=== PATIENT | female | born 1935 | race Caucasian/White ===

== ENCOUNTER 2019-10-16 13:46 | Observation (INO) ==
[2019-10-16] MEDS ORDERED: SODIUM CHLORIDE 0.9% 500 ML IV SCH (14:30)
[2019-10-16 14:49] LABS: Basophils # (auto) 0.03 K/uL (0-0.2); Basophils % (auto) 0.3 %; Eosinophils # (auto) 0.31 K/uL (0-0.5); Eosinophils % (auto) 3.5 %; Hematocrit (blood only) 38.1 % (37-47); Hemoglobin 12.7 g/dL (12.0-16.0); Immature Granulocytes # (auto) 0.02 K/uL (0.00-0.02); Immature Granulocytes % (auto) 0.2 %; Lymphocytes # (auto) 2.05 K/uL (1.2-3.4); Lymphocytes % (auto) 23.4 %; Mean Corpuscular Hemoglobin 29.3 pg (25-34); Mean Corpuscular Hgb Conc 33.3 g/dL (32-36); Mean Corpuscular Volume 87.8 fL (80-100); Mean Platelet Volume 10.4 fL (7.4-10.4); Monocytes # (auto) 0.77 K/uL (0.11-0.59); Monocytes % (auto) 8.8 %; Neutrophils # (auto) 5.57 K/uL (1.4-6.5); Neutrophils % (auto) 63.8 %; Platelet Count 246 K/uL (130-400); RDW Coefficient of Variation 13.9 % (11.5-14.5); RDW Standard Deviation 45.1 fL (36.4-46.3); Red Blood Count 4.34 M/uL (4.2-5.4); White Blood Count 8.75 K/uL (4.8-10.8)
--- NOTE | 2019-10-16 14:57 | Emergency Department Note ---
History of Present Illness General Chief complaint: Vaginal Bleeding Stated complaint: vaginal bleeding Time Seen by Provider: 10/16/19 13:56 Source: patient and EMS Mode of arrival: EMS Limitations: other (Dementia) History of Present Illness Provider Complaint: + vaginal bleeding Onset (ago): day(s) 1 Female Urogenital Radiation: + None Maximum Pain Intensity: 0 Current Pain Intensity: 0 Duration: constant Relieved By: + none Exacerbated By: + none Urinary symptoms: + None Vaginal discharge: + blood Sexual activity: + No Associated symptoms: + denies other symptoms The patient is an 84-year-old female who presents from the senior care. The patient has a history of dementia. The history is that the patient has had some vaginal bleeding that started yesterday at some time. She was sent to the hospital for additional vaginal bleeding today. The patient denies any other complaints. She denies any lightheadedness, dizziness, shortness of breath. No recent fevers or illness. She denies injury or placing any substances in the vaginal area. She denies any history of hysterectomy or other gynecologic surgeries. Home Medications Home Medications Medication Instructions Recorded Confirmed Type D-Mannose Cap 1,000 mg PO DAILY 09/30/19 10/16/19 History acetaminophen 500 mg PO TID PRN MDD 3 GMS 09/30/19 10/16/19 History APAP/24 HOURS acetaminophen 650 mg PO Q4H PRN MDD 3 GMS 09/30/19 10/16/19 History APAP/24 HOURS aspirin 325 mg PO DAILY 09/30/19 10/16/19 History atorvastatin 40 mg PO HS 09/30/19 10/16/19 History donepezil 10 mg PO HS 09/30/19 10/16/19 History famotidine 20 mg PO BID 09/30/19 10/16/19 History melatonin 6 mg PO HS 09/30/19 10/16/19 History potassium chloride 10 meq PO DAILY 09/30/19 10/16/19 History escitalopram oxalate 20 mg PO DAILY 10/16/19 10/16/19 History Allergies Allergy/AdvReac Type Severity Reaction Status Date / Time No Known Allergies Allergy Verified 10/16/19 14:14 Past Med/Surg History Social History Preferred Language: Indian Feels Safe at Home: Yes Smoking Status: Never smoker Review of Systems A total of 10 systems reviewed and were otherwise negative Physical Exam Vital Signs: Vital Signs - 24 hr 10/16/19 13:52 10/16/19 16:01 10/16/19 16:04 Temperature 36.7 C Temperature Source Oral Pulse Rate 62 60 64 Pulse Rate [Left F lonnie] Pulse Rate from Sp O2 Sensor 60 64 Pulse Rhythm Regular Pulse Rhythm [Left Finger] Pulse Strength Normal Pulse Strength [Le ft Finger] Respiratory Rate 17 15 17 Respiratory Effort / Characteristics Non-Labored Sponta neous Respiratory Depth Normal Respiratory Patter n Regular Blood Pressure 160/62 H 182/73 H Blood Pressure [Le ft Arm] Blood Pressure Polly n 94 139 Blood Pressure Polly n [Left Arm] Blood Pressure Pos ition [Left Arm] Pulse Oximetry 99 98 99 Oxygen Delivery Me thod Room Air Sepsis Recent Feve r Within 48 Hours No Sepsis New/Unexpla ined Change in Men dewayne Status No Sepsis Action Take n by Nursing No Action Required 10/16/19 16:10 10/16/19 16:11 10/16/19 16:12 Temperature Temperature Source Pulse Rate 62 70 70 Pulse Rate [Left F lonnie] Pulse Rate from Sp O2 Sensor 62 70 70 Pulse Rhythm Pulse Rhythm [Left Finger] Pulse Strength Pulse Strength [Le ft Finger] Respiratory Rate 21 16 18 Respiratory Effort / Characteristics Respiratory Depth Respiratory Patter n Blood Pressure 149/60 H Blood Pressure [Le ft Arm] Blood Pressure Polly n 100 Blood Pressure Polly n [Left Arm] Blood Pressure Pos ition [Left Arm] Pulse Oximetry 100 99 97 Oxygen Delivery Me thod Sepsis Recent Feve r Within 48 Hours Sepsis New/Unexpla ined Change in Men dewayne Status Sepsis Action Take n by Nursing 10/16/19 16:15 10/16/19 16:20 10/16/19 16:30 Temperature Temperature Source Pulse Rate 74 74 70 Pulse Rate [Left F lonnie] Pulse Rate from Sp O2 Sensor 74 74 72 Pulse Rhythm Pulse Rhythm [Left Finger] Pulse Strength Pulse Strength [Le ft Finger] Respiratory Rate 17 17 16 Respiratory Effort / Characteristics Respiratory Depth Respiratory Patter n Blood Pressure 145/81 H Blood Pressure [Le ft Arm] Blood Pressure Polly n 121 Blood Pressure Polly n [Left Arm] Blood Pressure Pos ition [Left Arm] Pulse Oximetry 97 97 97 Oxygen Delivery Me thod Sepsis Recent Feve r Within 48 Hours Sepsis New/Unexpla ined Change in Men dewayne Status Sepsis Action Take n by Nursing 10/16/19 16:31 10/16/19 16:48 10/16/19 16:50 Temperature Temperature Source Pulse Rate 78 69 69 Pulse Rate [Left F lonnie] Pulse Rate from Sp O2 Sensor 78 69 69 Pulse Rhythm Pulse Rhythm [Left Finger] Pulse Strength Pulse Strength [Le ft Finger] Respiratory Rate 20 14 19 Respiratory Effort / Characteristics Respiratory Depth Respiratory Patter n Blood Pressure 139/114 H 161/85 H Blood Pressure [Le ft Arm] Blood Pressure Polly n 126 137 Blood Pressure Polly n [Left Arm] Blood Pressure Pos ition [Left Arm] Pulse Oximetry 98 96 96 Oxygen Delivery Me thod Sepsis Recent Feve r Within 48 Hours Sepsis New/Unexpla ined Change in Men dewayne Status Sepsis Action Take n by Nursing 10/16/19 17:00 10/16/19 17:10 10/16/19 17:16 Temperature Temperature Source Pulse Rate 72 77 73 Pulse Rate [Left F lonnie] Pulse Rate from Sp O2 Sensor 73 79 74 Pulse Rhythm Pulse Rhythm [Left Finger] Pulse Strength Pulse Strength [Le ft Finger] Respiratory Rate 16 19 18 Respiratory Effort / Characteristics Respiratory Depth Respiratory Patter n Blood Pressure 172/71 H 180/65 H Blood Pressure [Le ft Arm] Blood Pressure Polly n 127 67 Blood Pressure Polly n [Left Arm] Blood Pressure Pos ition [Left Arm] Pulse Oximetry 98 99 99 Oxygen Delivery Me thod Sepsis Recent Feve r Within 48 Hours Sepsis New/Unexpla ined Change in Men dewayne Status Sepsis Action Take n by Nursing 10/16/19 17:20 10/16/19 17:30 10/16/19 17:52 Temperature 37 C Temperature Source Oral Pulse Rate 71 73 Pulse Rate [Left F lonnie] 76 Pulse Rate from Sp O2 Sensor 71 73 Pulse Rhythm Pulse Rhythm [Left Finger] Regular Pulse Strength Pulse Strength [Le ft Finger] Normal Respiratory Rate 15 18 18 Respiratory Effort / Characteristics Non-Labored Sponta neous Respiratory Depth Normal Respiratory Patter n Regular Blood Pressure 140/61 Blood Pressure [Le ft Arm] 133/85 Blood Pressure Polly n 67 Blood Pressure Polly n [Left Arm] 101 Blood Pressure Pos ition [Left Arm] Lying Pulse Oximetry 98 97 96 Oxygen Delivery Me thod Room Air Sepsis Recent Feve r Within 48 Hours Sepsis New/Unexpla ined Change in Men dewayne Status Sepsis Action Take n by Nursing Physical Exam: CONSTITUTIONAL/VITAL SIGNS: Reviewed / noted above. GENERAL: Non-toxic in appearance. INTEGUMENTARY: Warm, dry, and [place]. HEAD: Normocephalic. EYES: without scleral icterus or trauma. ENT/OROPHARYNX: clear and moist. LYMPHADENOPATHY/NECK: Is supple without lymphadenopathy or meningismus. RESPIRATORY: Lungs clear and equal. CARDIOVASCULAR: Regular rate and rhythm. GI/ABDOMEN: Soft and nontender. No organomegaly or pulsatile mass. No rebound or guarding. Normal bowel sounds. EXTREMITIES: Warm and well perfused. BACK: No CVA tenderness. NEUROLOGICAL: Intact without focal deficits. PSYCHIATRIC: normal affect. MUSCULOSKELETAL: Normally developed with good muscle tone. VAGINAL/pelvic: Externally there was noted to be some blood and clots. There is no obvious external trauma. Internal exam with speculum reveals vaginal bleeding. I could not find a anatomically normal cervix. Distal to the speculum there was a non-anatomical part/foreign body that has a plastic reflective type nature. The patient denies pessary or other vaginal intervent ions. TRIAGE NURSING DOCUMENTATION REVIEWED. Course Administered Medications Discontinued Medications Sodium Chloride (Nss) 500 mls @ 999 mls/hr IV .Q31M [facility], 1928–1983 Stop: 10/16/19 15:00 Last Infusion: 10/16/19 16:13 Dose: 0 mls/hr Documented by: [id number] Admin: 10/16/19 14:38 Dose: 999 mls/hr Documented by: [id number] Morphine Sulfate (Morphine Sulfate) Confirm Administered Dose 4 mg .ROUTE .STK- MED ONE Stop: 10/16/19 17:08 Last Admin: 10/16/19 17:18 Dose: Not Given Documented by: [id number] Morphine Sulfate (Morphine Sulfate) 4 mg IV NOW STA Stop: 10/16/19 17:09 Last Admin: 10/16/19 17:18 Dose: 4 mg Documented by: [id number] Medical Decision Making Differential Diagnosis + bacterial vaginosis, + vaginitis, + cystitis, + dysmenorrhea, + endometriosis, + mesenteric ischemia and + inflammatory bowel disease Infection/foreign body/trauma. Medical Records Attestation: I reviewed the patient's medical records. Home Medications Current Medication List: was personally reviewed by me Laboratory Data Attestation: I reviewed the patient's lab results. Result diagrams: 10/16/19 14:32 10/16/19 14:32 Lab Results 10/16/19 10/16/19 10/16/19 Range/Units 14:32 14:32 14:32 WBC 8.75 (4.8-10.8) K/uL RBC 4.34 (4.2-5.4) M/uL Hgb 12.7 (12.0-16.0) g/dL Hct 38.1 (37-47) % MCV 87.8 (80-100) fL MCH 29.3 (25-34) pg MCHC 33.3 (32-36) g/dL RDW Std Deviation 45.1 (36.4-46.3) fL RDW Coeff of Anyi 13.9 (11.5-14.5) % Plt Count 246 (130-400) K/uL MPV 10.4 (7.4-10.4) fL Immature Gran % (Auto) 0.2 % Neut % (Auto) 63.8 % Lymph % (Auto) 23.4 % Christian % (Auto) 8.8 % Eos % (Auto) 3.5 % Baso % (Auto) 0.3 % Immature Gran # (Auto) 0.02 (0.00-0.02) K/uL Neut # (Auto) 5.57 (1.4-6.5) K/uL Lymph # (Auto) 2.05 (1.2-3.4) K/uL Christian # (Auto) 0.77 H (0.11-0.59) K/uL Eos # (Auto) 0.31 (0-0.5) K/uL Baso # (Auto) 0.03 (0-0.2) K/uL PT 10.5 (9.0-12.0) Seconds INR 1.0 (0.9-1.1) APTT 23.1 (21.0-31.0) Seconds PTT Ratio 0.8 Sodium 138 (136-145) mmol/L Potassium 3.7 (3.5-5.1) mmol/L Chloride 106 (98-107) mmol/L Carbon Dioxide 29 (21-32) mmol/L Anion Gap 3.0 (3-11) BUN 22 H (7-18) mg/dl Creatinine 0.81 (0.6-1.2) mg/dl Est Cr Clr Drug Dosing 44.7 ml/min Est GFR ( Amer) 76.2 Est GFR (Non-Af Amer) 65.8 BUN/Creatinine Ratio 26.6 H (10-20) Glucose 126 H (70-99) mg/dl Calcium 8.6 (8.5-10.1) mg/dl Total Bilirubin 0.7 (0.2-1) mg/dl AST 17 (15-37) U/L ALT 26 (12-78) U/L Alkaline Phosphatase 73 (45-117) U/L Total Protein 6.9 (6.4-8.2) gm/dl Albumin 3.3 L (3.4-5.0) gm/dl Globulin 3.6 (2.5-4.0) gm/dl Albumin/Globulin Ratio 0.9 (0.9-2) Crossmatch 10/16/19 Range/Units 18:07 WBC (4.8-10.8) K/uL RBC (4.2-5.4) M/uL Hgb (12.0-16.0) g/dL Hct (37-47) % MCV (80-100) fL MCH (25-34) pg MCHC (32-36) g/dL RDW Std Deviation (36.4-46.3) fL RDW Coeff of Anyi (11.5-14.5) % Plt Count (130-400) K/uL MPV (7.4-10.4) fL Immature Gran % (Auto) % Neut % (Auto) % Lymph % (Auto) % Christian % (Auto) % Eos % (Auto) % Baso % (Auto) % Immature Gran # (Auto) (0.00-0.02) K/uL Neut # (Auto) (1.4-6.5) K/uL Lymph # (Auto) (1.2-3.4) K/uL Christian # (Auto) (0.11-0.59) K/uL Eos # (Auto) (0-0.5) K/uL Baso # (Auto) (0-0.2) K/uL PT (9.0-12.0) Seconds INR (0.9-1.1) APTT (21.0-31.0) Seconds PTT Ratio Sodium (136-145) mmol/L Potassium (3.5-5.1) mmol/L Chloride (98-107) mmol/L Carbon Dioxide (21-32) mmol/L Anion Gap (3-11) BUN (7-18) mg/dl Creatinine (0.6-1.2) mg/dl Est Cr Clr Drug Dosing ml/min Est GFR ( Amer) Est GFR (Non-Af Amer) BUN/Creatinine Ratio (10-20) Glucose (70-99) mg/dl Calcium (8.5-10.1) mg/dl Total Bilirubin (0.2-1) mg/dl AST (15-37) U/L ALT (12-78) U/L Alkaline Phosphatase (45-117) U/L Total Protein (6.4-8.2) gm/dl Albumin (3.4-5.0) gm/dl Globulin (2.5-4.0) gm/dl Albumin/Globulin Ratio (0.9-2) Crossmatch See Detail Imaging Data Radiologist's Impression: IMPRESSION: Negative pelvic ultrasound. XR KUB/Abdomen 1 view CLINICAL HISTORY: ?fb in vagina/cervix COMPARISON STUDY: No previous studies for comparison. FINDINGS: The soft tissues, psoas shadows, renal outlines and intestinal gas pattern appear normal. There is no evidence for bowel obstruction. No abnormal abdominal calcifications are seen. There is mild amount of air within the vaginal canal. IMPRESSION: Normal study. Air is noted within the vaginal canal/rectosigmoid. CT Pelvis IMPRESSION: 1. Vaginal canal is moderately distended and contains either fecal material versus soft tissue versus slightly radiopaque debris. 2. No evidence for metallic or high density radiopaque foreign body. 3. Remainder the study is unremarkable. Blood Pressure Blood Pressure Findings: Elevated blood pressure Blood Pressure Disposition: Referred to patients primary care provider MDM Narrative The patient is an 84-year-old female who presents from the senior care. The patient has a history of dementia. The history is that the patient has had some vaginal bleeding that started yesterday at some time. She was sent to the hospital for additional vaginal bleeding today. The patient denies any other complaints. She denies any lightheadedness, dizziness, shortness of breath. No recent fevers or illness. She denies injury or placing any substances in the vaginal area. She denies any history of hysterectomy or other gynecologic surge mayito. The patient's vital signs were stable. Her physical exam revealed some bleeding from the inner most portion of the vagina/in the location of the cervix or uterus. There is also noted to be a plastic reflective texture type foreign body in the proximal vaginal vault beyond the distance of the speculum. There was noted to be active bleeding from the area. The patient CBC was normal. Her chemistry panel was unremarkable. The ultrasound, pelvic x-ray and CT scan of the pelvis did not show any clear abnormalities. The vaginal canal was moderately distended and contains some radiopaque debris's. I spoke with Dr. Logan from gynecology. She evaluated the patient in the emergency department. She subsequently took the patient to the operating room for further evaluation for possible foreign body in the vagina. The patient was given IV morphine during her stay here for discomfort during the attempt to evaluate the patient initially after Dr. Logan was attempting to remove the foreign body here. I did speak with the patient's nephew, David Cosby who is also the a power of at [facility]. He is agreeable for the patient to go to the operating room. His phone number is [phone]. The patient was taken to the operating room by Dr. Logan. Impression & Plan Vaginal hemorrhage, Retained vaginal foreign body Discharge Plan Visit Data *Final* Discharge Date/Time: 10/16/19 17:37 Chief Complaint: Vaginal Bleeding Stated Complaint: vaginal bleeding ED Provider: Homer Arce Problem: Vaginal hemorrhage, Retained vaginal foreign body Patient Disposition: Being Evaluated by Surgeon Discharge Instructions Interventions: ED Discharge Assessment Last Done: 10/16/19 17:37
[2019-10-16 15:00] LABS: Partial Thromboplastin Ratio 0.8; Partial Thromboplastin Time 23.1 Seconds (21.0-31.0); Prothrombin Time 10.5 Seconds (9.0-12.0)
[2019-10-16 15:06] LABS: Albumin Level 3.3 gm/dl (3.4-5.0); BUN Creatinine Ratio 26.6 (10-20); Calcium 8.6 mg/dl (8.5-10.1); Creatinine Clr Calc Pharmacy 44.7 ml/min; Est GFR (African American) 76.2; Est GFR (Non-African American) 65.8; Potassium 3.7 mmol/L (3.5-5.1)
[2019-10-16 15:09] LABS: Albumin Globulin Ratio 0.9 (0.9-2); Bilirubin,Total 0.7 mg/dl (0.2-1); Globulin 3.6 gm/dl (2.5-4.0); Total Protein 6.9 gm/dl (6.4-8.2)
--- NOTE | 2019-10-16 16:07 | XRay Report ---
XR KUB/Abdomen 1 view CLINICAL HISTORY: ?fb in vagina/cervix COMPARISON STUDY: No previous studies for comparison. FINDINGS: The soft tissues, psoas shadows, renal outlines and intestinal gas pattern appear normal. T here is no evidence for bowel obstruction. No abnormal abdominal calcifications are seen. There is mi ld amount of air within the vaginal canal. IMPRESSION: Normal study. Air is noted within the vaginal canal/rectosigmoid. ACT 112: Negative or not required by law. The above report was generated using voice recognition software. It may contain grammatical, syntax or spelling errors. Electronically signed by: Vladimir Pierson M.D. 10/16/2019 4:05 PM
--- NOTE | 2019-10-16 16:17 | Ultrasound Report ---
US pelvic complete CLINICAL HISTORY: vaginal bleeding COMPARISON STUDY: None FINDINGS: The uterus measured 4 cm. The endometrial stripe measured 3 mm. The right ovary measured poorly seen potentially due to atrophy. The left ovary measured poorly seen potentially due to atrophy. There is no ultrasonographic evidence of ovarian torsion. It should be noted that ovarian torsion can be present with normal Doppler ultrasonographic findings. There was no evidence of pathologic free pelvic fluid. IMPRESSION: Negative pelvic ultrasound. ACT 112: Negative or not required by law. The above report was generated using voice recognition software. It may contain grammatical, syntax or spelling errors. Electronically signed by: Vladimir Pierson M.D. 10/16/2019 4:16 PM
[2019-10-16] MEDS ORDERED: FERRIC SUBSULFATE 8 GM VIAL TOP SCH (16:30)
--- NOTE | 2019-10-16 17:00 | CT Scan Report ---
Study: CT pelvis HISTORY: Foreign body FINDINGS: Vaginal canal contains fecal material versus abnormal soft tissue involving the posterior a spect of the vaginal canal. Bladder is midline. The bowel pattern overall is considered nonobstructiv e. There are no acute bony abnormalities. The bowel pattern is considered nonobstructive. No acute bony abnormality. No true lytic or blastic process. IMPRESSION: 1. Vaginal canal is moderately distended and contains either fecal material versus soft tissue versus slightly radiopaque debris. 2. No evidence for metallic or high density radiopaque foreign body. 3. Remainder the study is unremarkable. Electronically signed by: Vladimir Pierson M.D. 10/16/2019 4:59 PM
[2019-10-16] MEDS ORDERED: MoRPHine SULFATE 4 MG/ML 1 ML CARP\\VIAL ONE (17:07)
[2019-10-16] MEDS ORDERED: MoRPHine SULFATE 4 MG/ML 1 ML CARP\\VIAL IV STA (17:08)
[2019-10-16] MEDS ORDERED: CEFAZOLIN 2000MG 2,000 MG/15 ML SYR IV ONE (17:30)
[2019-10-16] MEDS ORDERED: SODIUM CHLORIDE 0.9% 250 ML IV PRN (17:30)
--- NOTE | 2019-10-16 17:30 | History & Physical Report ---
Date of Service October 16, 2019 Assessment & Plan (1) Vaginal hemorrhage: (2) Vaginal foreign object: 84 yo G0 postmenopausal female with active heavy VB, foreign object in vagina, unable to remove in bed side VSS Afebrile I called her nephew who is power of mergers and acquisitions attorney and explained above, got verbal consent from him for EUA, pelvic exam, removal of foreign object with possible vaginal repair, packing in ER to stop this active bleeding All questions were answered History of Present Illness Chief Complaint: Vaginal bleeding Primary Care Provider: David Caraballo MD Patient is a 84 yo G? postmenopausal female who was brought from prison for heavy VB since yesterday She was h/o dementia and could not give history She was examined by ER physician who noted heavy VB with cloth and foreign object in vagina She had US which was normal, with small uterus and normal endometrial lining I have done a limited pelvic exam, noted heavy VB with large cloths of 100 ml, there is firm plastic cup/ pipe like foreign object in vagina, resting on vaginal cuevas tightly and unable to remove due to patient's discomfort and muscular defense We gave her 4 mg IV Morphine still could not relax Discussed wit ER attending and decided on doing EA, pelvic exam, removal of foreign object with possible vaginal repair, packing in ER to stop this active bleeding Allergies Allergy/AdvReac Type Severity Reaction Status Date / Time No Known Allergies Allergy Verified 10/16/19 14:14 Home Medications Home Medications Medication Instructions Recorded Confirmed Type D-Mannose Cap 1,000 mg PO DAILY 09/30/19 10/16/19 History acetaminophen 500 mg PO TID PRN MDD 3 GMS 09/30/19 10/16/19 History APAP/24 HOURS acetaminophen 650 mg PO Q4H PRN MDD 3 GMS 09/30/19 10/16/19 History APAP/24 HOURS aspirin 325 mg PO DAILY 09/30/19 10/16/19 History atorvastatin 40 mg PO HS 09/30/19 10/16/19 History donepezil 10 mg PO HS 09/30/19 10/16/19 History famotidine 20 mg PO BID 09/30/19 10/16/19 History melatonin 6 mg PO HS 09/30/19 10/16/19 History potassium chloride 10 meq PO DAILY 09/30/19 10/16/19 History escitalopram oxalate 20 mg PO DAILY 10/16/19 10/16/19 History Patient History Social History Preferred Language: Iraqi Feels Safe at Home: Yes Smoking Status: Never smoker OB History Unknown Review of Systems All systems reviewed & are unremarkable except as noted in HPI & below Physical Exam Constitutional: WD/WN, vitals as above Dementia, unable understand what is going on. Gastrointestinal (Abdomen): normal bowel sounds, soft, nontender, no hepatosplenomegaly Musculoskeletal: no cyanosis or clubbing, extremities motor strength 5/5 Genitourinary: 100 ml cloth on depends Active bleeding from vagina+++ there is firm plastic cup/ pipe like foreign object in vagina, resting on vaginal cuevas tightly and unable to remove due to patient's discomfort and muscular defense We gave her 4 mg IV Morphine still could not relax Results & Data Vital Signs (Past 12 Hours) Vital Signs Temp Pulse Resp BP Pulse Ox 10/16/19 16:50 69 19 96 10/16/19 16:48 69 14 161/85 H 96 10/16/19 16:31 78 20 139/114 H 98 10/16/19 16:30 70 16 97 10/16/19 16:20 74 17 97 10/16/19 16:15 74 17 145/81 H 97 10/16/19 16:12 70 18 97 10/16/19 16:11 70 16 149/60 H 99 10/16/19 16:10 62 21 100 10/16/19 16:04 64 17 99 10/16/19 16:01 60 15 182/73 H 98 10/16/19 13:52 36.7 C 62 17 160/62 H 99 Laboratory Results Lab Results 10/16/19 10/16/19 10/16/19 Range/Units 14:32 14:32 14:32 WBC 8.75 (4.8-10.8) K/uL RBC 4.34 (4.2-5.4) M/uL Hgb 12.7 (12.0-16.0) g/dL Hct 38.1 (37-47) % MCV 87.8 (80-100) fL MCH 29.3 (25-34) pg MCHC 33.3 (32-36) g/dL RDW Std Deviation 45.1 (36.4-46.3) fL RDW Coeff of Anyi 13.9 (11.5-14.5) % Plt Count 246 (130-400) K/uL MPV 10.4 (7.4-10.4) fL Immature Gran % (Auto) 0.2 % Neut % (Auto) 63.8 % Lymph % (Auto) 23.4 % [place] % (Auto) 8.8 % Eos % (Auto) 3.5 % Baso % (Auto) 0.3 % Immature Gran # (Auto) 0.02 (0.00-0.02) K/uL Neut # (Auto) 5.57 (1.4-6.5) K/uL Lymph # (Auto) 2.05 (1.2-3.4) K/uL [place] # (Auto) 0.77 H (0.11-0.59) K/uL Eos # (Auto) 0.31 (0-0.5) K/uL Baso # (Auto) 0.03 (0-0.2) K/uL PT 10.5 (9.0-12.0) Seconds INR 1.0 (0.9-1.1) APTT 23.1 (21.0-31.0) Seconds PTT Ratio 0.8 Sodium 138 (136-145) mmol/L Potassium 3.7 (3.5-5.1) mmol/L Chloride 106 (98-107) mmol/L Carbon Dioxide 29 (21-32) mmol/L Anion Gap 3.0 (3-11) BUN 22 H (7-18) mg/dl Creatinine 0.81 (0.6-1.2) mg/dl Est Cr Clr Drug Dosing 44.7 ml/min Est GFR ( Amer) 76.2 Est GFR (Non-Af Amer) 65.8 BUN/Creatinine Ratio 26.6 H (10-20) Glucose 126 H (70-99) mg/dl Calcium 8.6 (8.5-10.1) mg/dl Total Bilirubin 0.7 (0.2-1) mg/dl AST 17 (15-37) U/L ALT 26 (12-78) U/L Alkaline Phosphatase 73 (45-117) U/L Total Protein 6.9 (6.4-8.2) gm/dl Albumin 3.3 L (3.4-5.0) gm/dl Globulin 3.6 (2.5-4.0) gm/dl Albumin/Globulin Ratio 0.9 (0.9-2)
[2019-10-16] MEDS ORDERED: CEFAZOLIN 2,000 MG/15 ML IV PUSH IV ONE (17:39)
[2019-10-16] MEDS ORDERED: fentaNYL citrate 100 MCG/2 ML VIAL ONE (17:43)
[2019-10-16] MEDS ORDERED: ONDANSETRON INJ 2 MG/ML 2 ML VIAL ONE (17:43)
[2019-10-16] MEDS ORDERED: PROPOFOL IV EMULSION 10 MG/ML 20 ML VIAL IV ONE (17:43)
[2019-10-16] MEDS ORDERED: ATROPINE SULFATE 0.1 MG/ML 10ML SYR IV PRN (18:11)
[2019-10-16] MEDS ORDERED: fentaNYL citrate 100 MCG/2 ML VIAL IV PRN (18:11)
[2019-10-16] MEDS ORDERED: ONDANSETRON INJ 2 MG/ML 2 ML VIAL IV PRN (18:11)
[2019-10-16] MEDS ORDERED: ePHEDrine sulfate 50 MG/ML AMP IV PRN (18:11)
--- NOTE | 2019-10-16 18:11 | Anesthesiology Consultation ---
Date of Service October 16, 2019 Assessment & Plan Chart Review Chart Review: Acceptable Risk for Surgery and Patient NOT seen in Pre Admission Testing Consults Requested none ASA ASA3 Proposed Anesthesia Anesthesia Type: Spinal (saddle block) Risk / Benefits Reviewed With: PT / POA / Parent / Guardian, Accepts Plan and Informed Consent Obtained History Surgery Operation Date: 10/16/19 15:15 Proposed Procedures p Exam Under Anesthesia, Removal of Vaginal Foreign Object - Nicho Person MD Height/Weight Height: 5 ft 1 in Weight: 70.4 kg Allergies Allergy/AdvReac Type Severity Reaction Status Date / Time No Known Allergies Allergy Verified 10/16/19 14:14 Medications Home Medications Medication Instructions Recorded Confirmed Last Taken D-Mannose Cap 1,000 mg PO DAILY 09/30/19 10/16/19 10/16/19 08:00 acetaminophen 500 mg PO TID PRN MDD 3 GMS 09/30/19 10/16/19 10/16/19 08:00 APAP/24 HOURS acetaminophen 650 mg PO Q4H PRN MDD 3 GMS 09/30/19 10/16/19 Unknown APAP/24 HOURS aspirin 325 mg PO DAILY 09/30/19 10/16/19 10/16/19 08:00 atorvastatin 40 mg PO HS 09/30/19 10/16/19 10/16/19 08:00 donepezil 10 mg PO HS 09/30/19 10/16/19 10/16/19 08:00 famotidine 20 mg PO BID 09/30/19 10/16/19 10/16/19 08:00 melatonin 6 mg PO HS 09/30/19 10/16/19 10/16/19 08:00 potassium chloride 10 meq PO DAILY 09/30/19 10/16/19 10/16/19 08:00 escitalopram oxalate 20 mg PO DAILY 10/16/19 10/16/19 10/16/19 08:00 NPO Date Last Intake of Fluids: 10/16/19 Time Last Intake of Fluids: 12:00 Date Last Intake of Solids: 10/16/19 Time Last Intake of Solids: 12:00 Exercise / Class Metabolic Activity II 4-5 Yardwork/Stairs/Walk up hill Past Anesthesia History No Hx of Anesthesia Complications and No Family Hx of Anesthesia Complications History of PONV No Hx of PONV and No Hx of Motion Sickness Social History Smoking Status: Never smoker Physical Exam Vital Signs Last Vital Signs Temp 37 C 10/16/19 17:52 Pulse 76 10/16/19 17:52 Resp 18 10/16/19 17:52 BP 133/85 10/16/19 17:52 Pulse Ox 96 10/16/19 17:52 ENMT Mouth: no dentition abnormality Thyromental Distance: > or= 3.5 Finger Breadths Mallampati Class: II Neck normal visual inspection Respiratory normal respiratory effort Auscultation: lungs clear to auscultation bilaterally Cardiovascular Rate/Rhythm: regular rate and regular rhythm Psychiatric Orientation: alert Testing Laboratory Results 10/16/19 14:32 10/16/19 14:32 PT 10.5 Seconds (9.0-12.0) 10/16/19 14:32 INR 1.0 (0.9-1.1) 10/16/19 14:32 APTT 23.1 Seconds (21.0-31.0) 10/16/19 14:32
[2019-10-16] MEDS ORDERED: ePHEDrine sulfate 50 MG/ML AMP ONE (18:43)
[2019-10-16] MEDS ORDERED: BACITRACIN OINT 15 GM TUBE ONE (18:44)
[2019-10-16] MEDS ORDERED: HEMADERM ENT APPLICATOR KIT TOP ONE (18:55)
[2019-10-16] MEDS ORDERED: ARISTA ABSORBABLE HEMOSTAT 3GM TOP ONE (19:00)
[2019-10-16] MEDS ORDERED: SURGICEL ABSORB HEMOSTAT 2IN X 14IN TOP ONE (19:01)
[2019-10-16] MEDS ORDERED: OXYCODONE/ACETAMINOPHEN 5mg/325mg TAB PO PRN (19:06)
[2019-10-16] MEDS ORDERED: MoRPHine SULFATE 2 MG/ML CARP IV PRN (19:06)
--- NOTE | 2019-10-16 19:09 | Post Operative Brief Note ---
Immediate Post Op Note v1 Date of Surgery October 16, 2019 Pre & Post Diagnosis Operation Date: 10/16/19 15:15 Pre-Op Diagnosis: vaginal bleeding, vagina foreign body Post-Op Diagnosis: vaginal bleeding, vagina foreign body I identified the patient and participated in the time-out.: Yes Procedure Operation Date: 10/16/19 15:15 Actual Procedures p Exam Under Anesthesia, Removal of Vaginal Foreign Object, with vagina packing (Not Applicable) - Nicho Lorenzo MD Surgeon Nicho Lorenzo MD Coating Mixer OR nurse Estimated Blood Loss 50 Findings Consistent with Post-Op Diagnosis Drains Marino Catheter Anesthesia Type MAC Spinal Regional Complications none Disposition Accompanied Patient To Recovery: Yes Disposition: Recovery Room
[2019-10-16] MEDS ORDERED: OR MISCELLANEOUS MED TOP ONE (19:24)
--- NOTE | 2019-10-16 19:24 | Obstetrical Progress Note ---
Date of Service October 16, 2019 Subjective I have seen and talked to patient in RR She feels well no complaints I called her nephew, power of form setter supervisor, and informed about her He was very appreciative Results & Data ([facility]) Vital Signs (Past 12 Hours) Vital Signs Temp Pulse Pulse Resp BP BP Pulse Ox 10/16/19 17:52 37 C 76 18 133/85 96 10/16/19 17:30 73 18 140/61 97 10/16/19 17:20 71 15 98 10/16/19 17:16 73 18 180/65 H 99 10/16/19 17:10 77 19 99 10/16/19 17:00 72 16 172/71 H 98 10/16/19 16:50 69 19 96 10/16/19 16:48 69 14 161/85 H 96 10/16/19 16:31 78 20 139/114 H 98 10/16/19 16:30 70 16 97 10/16/19 16:20 74 17 97 10/16/19 16:15 74 17 145/81 H 97 10/16/19 16:12 70 18 97 10/16/19 16:11 70 16 149/60 H 99 10/16/19 16:10 62 21 100 10/16/19 16:04 64 17 99 10/16/19 16:01 60 15 182/73 H 98 10/16/19 13:52 36.7 C 62 17 160/62 H 99 :
--- NOTE | 2019-10-16 19:44 | Anesthesiology Progress Note ---
Date of Service October 16, 2019 Anesthesia Post Procedure Vital Signs Vital Signs: Temp Pulse Pulse Pulse Resp BP BP 10/16/19 19:30 36.6 C 69 16 147/58 H 10/16/19 19:20 69 16 143/62 H 10/16/19 19:14 36.5 C 87 16 148/57 H 10/16/19 17:52 37 C 76 18 133/85 10/16/19 17:30 73 18 140/61 10/16/19 17:20 71 15 10/16/19 17:16 73 18 180/65 H 10/16/19 17:10 77 19 10/16/19 17:00 72 16 172/71 H 10/16/19 16:50 69 19 10/16/19 16:48 69 14 161/85 H 10/16/19 16:31 78 20 139/114 H 10/16/19 16:30 70 16 10/16/19 16:20 74 17 10/16/19 16:15 74 17 145/81 H 10/16/19 16:12 70 18 10/16/19 16:11 70 16 149/60 H 10/16/19 16:10 62 21 10/16/19 16:04 64 17 10/16/19 16:01 60 15 182/73 H 10/16/19 13:52 36.7 C 62 17 160/62 H Pulse Ox 10/16/19 19:30 95 10/16/19 19:20 95 10/16/19 19:14 96 10/16/19 17:52 96 10/16/19 17:30 97 10/16/19 17:20 98 10/16/19 17:16 99 10/16/19 17:10 99 10/16/19 17:00 98 10/16/19 16:50 96 10/16/19 16:48 96 10/16/19 16:31 98 10/16/19 16:30 97 10/16/19 16:20 97 10/16/19 16:15 97 10/16/19 16:12 97 10/16/19 16:11 99 10/16/19 16:10 100 10/16/19 16:04 99 10/16/19 16:01 98 10/16/19 13:52 99 Transfer of Care Handoff Completed per policy Notes Mental Status: alert / awake / arousable Patient Amnestic to Procedure: Yes Nausea / Vomiting: adequately controlled Pain: adequately controlled Airway Patency, RR, SpO2: stable & adequate BP & HR: stable & adequate Hydration State: stable & adequate Neuraxial Anesthesia: was administered and sensory block is resolving Anesthetic Complications: no major complications apparent
--- NOTE | 2019-10-16 22:24 | Obstetrical Progress Note ---
Date of Service October 16, 2019 Assessment & Plan Admission and Anticipated Discharge Date Admission Date: October 16, 2019 Subjective Postop check Patient is seen and examined Feels well, no complaints Pain is under control with meds No CP/ SOB/ Dizziness/ N&V/ VB/ Leg pain Tolerating clears Vital Signs Temp Pulse Pulse Pulse Pulse Resp BP 10/16/19 21:40 36.4 C L 62 16 10/16/19 20:50 36.3 C L 67 18 10/16/19 20:35 36.3 C L 90 18 10/16/19 19:30 36.6 C 69 16 10/16/19 19:20 69 16 10/16/19 19:14 36.5 C 87 16 10/16/19 17:52 37 C 76 18 10/16/19 17:30 73 18 140/61 10/16/19 17:20 71 15 10/16/19 17:16 73 18 180/65 H 10/16/19 17:10 77 19 10/16/19 17:00 72 16 172/71 H 10/16/19 16:50 69 19 10/16/19 16:48 69 14 161/85 H 10/16/19 16:31 78 20 139/114 H 10/16/19 16:30 70 16 10/16/19 16:20 74 17 10/16/19 16:15 74 17 145/81 H 10/16/19 16:12 70 18 10/16/19 16:11 70 16 149/60 H 10/16/19 16:10 62 21 10/16/19 16:04 64 17 10/16/19 16:01 60 15 182/73 H 10/16/19 13:52 36.7 C 62 17 160/62 H BP BP Pulse Ox 10/16/19 21:40 126/64 99 10/16/19 20:50 137/59 L 97 10/16/19 20:35 146/75 H 96 10/16/19 19:30 147/58 H 95 10/16/19 19:20 143/62 H 95 10/16/19 19:14 148/57 H 96 10/16/19 17:52 133/85 96 10/16/19 17:30 97 10/16/19 17:20 98 10/16/19 17:16 99 10/16/19 17:10 99 10/16/19 17:00 98 10/16/19 16:50 96 10/16/19 16:48 96 10/16/19 16:31 98 10/16/19 16:30 97 10/16/19 16:20 97 10/16/19 16:15 97 10/16/19 16:12 97 10/16/19 16:11 99 10/16/19 16:10 100 10/16/19 16:04 99 10/16/19 16:01 98 10/16/19 13:52 99 Intake & Output 10/16/19 10/16/19 10/16/19 06:59 14:59 22:59 Intake Total 1290 / 1290 Output Total 400 / 400 Balance 890 / 890 Weight 70.4 kg 70.4 kg Intake: IV 500 / 500 Nss 500 ml @ 999 mls/hr IV . 500 / 500 Q31M [facility] Rx#:[id number] IV Perioperative 550 / 550 Oral 240 / 240 Output: Estimated Blood Loss 50 / 50 Urine Amount (Catheter) 350 / 350 Hadley/Indwelling 350 / 350 PE: General: Sleeping, woke up with light, NAD Abd: soft, NT, ND, No VB, packing and pad dry Hadley is draining clear urine Ext: NT, no edema, SCD's on AP: 84 yo female s/p EUA. removal of foreign object from vagina and control of bleeding, vag packing , pod#0 VSS Afebrile doing well Continue to routine postop care Vag pack and hadley until 7 pm tomorrow Results & Data ([facility]) Vital Signs (Past 12 Hours) Vital Signs Temp Pulse Pulse Pulse Pulse Resp BP 10/16/19 21:40 36.4 C L 62 16 10/16/19 20:50 36.3 C L 67 18 10/16/19 20:35 36.3 C L 90 18 10/16/19 19:30 36.6 C 69 16 10/16/19 19:20 69 16 10/16/19 19:14 36.5 C 87 16 10/16/19 17:52 37 C 76 18 10/16/19 17:30 73 18 140/61 10/16/19 17:20 71 15 10/16/19 17:16 73 18 180/65 H 10/16/19 17:10 77 19 10/16/19 17:00 72 16 172/71 H 10/16/19 16:50 69 19 10/16/19 16:48 69 14 161/85 H 10/16/19 16:31 78 20 139/114 H 10/16/19 16:30 70 16 10/16/19 16:20 74 17 10/16/19 16:15 74 17 145/81 H 10/16/19 16:12 70 18 10/16/19 16:11 70 16 149/60 H 10/16/19 16:10 62 21 10/16/19 16:04 64 17 10/16/19 16:01 60 15 182/73 H 10/16/19 13:52 36.7 C 62 17 160/62 H BP BP Pulse Ox 10/16/19 21:40 126/64 99 10/16/19 20:50 137/59 L 97 10/16/19 20:35 146/75 H 96 10/16/19 19:30 147/58 H 95 10/16/19 19:20 143/62 H 95 10/16/19 19:14 148/57 H 96 10/16/19 17:52 133/85 96 10/16/19 17:30 97 10/16/19 17:20 98 10/16/19 17:16 99 10/16/19 17:10 99 10/16/19 17:00 98 10/16/19 16:50 96 10/16/19 16:48 96 10/16/19 16:31 98 10/16/19 16:30 97 10/16/19 16:20 97 10/16/19 16:15 97 10/16/19 16:12 97 10/16/19 16:11 99 10/16/19 16:10 100 10/16/19 16:04 99 10/16/19 16:01 98 10/16/19 13:52 99
--- NOTE | 2019-10-16 23:14 | Operative Report (OR) ---
DATE OF OPERATION: 10/16/2019 PREOPERATIVE DIAGNOSES: The patient is an 84-year-old postmenopausal female with heavy vaginal bleeding, foreign body in vagina, unable to remove at bedside due to discomfort and muscular defense. POSTOPERATIVE DIAGNOSES: The patient is an 84-year-old postmenopausal female with heavy vaginal bleeding, foreign body in vagina, unable to remove at bedside due to discomfort and muscular defense and foreign body was a plastic cap of an unknown container. PROCEDURE: Exam under anesthesia, removal of foreign object from vagina, control of vaginal bleeding from posterior fornix with topical hemostatic agents and vaginal packing and placement of Marino catheter. SURGEON: Nicho Lorenzo MD HOOF AND SHOE INSPECTOR: OR nurse. ESTIMATED BLOOD LOSS: 50 mL. ANESTHESIA: Regional spinal by Dr. Meza. COMPLICATIONS: None. FINDINGS: Exam under anesthesia revealed a firm plastic foreign object, like a round, firm cap in the vagina, active bleeding from vagina with clots. After the foreign object was removed, cervix was visualized to be normal, atrophic. There was a superficial vaginal laceration at the posterior fornix and posterior vaginal wall Bimanual exam revealed small anteverted uterus, nonpalpable adnexa. Rectal exam revealed normal rectum, normal intact rectovaginal mucosa. The foreign object was a 4 cm long, 3.5 cm in diameter, firm old plastic cap of unknown object, probably cap of a medicine or hair spray. DESCRIPTION OF PROCEDURE: The patient was taken to the operating room where spinal anesthesia was given without difficulty. She was placed in dorsal lithotomy position, prepared and draped in usual sterile fashion. Examination under anesthesia was done with the above findings. The bladder was drained with straight catheter, 300 mL of clear urine was obtained. There was active bleeding with clots in the vagina. Those were removed and then the plastic cap was felt again with fingers and then ring forceps was used to hold the plastic cap and remove from the vagina gently and completely. It was placed in the table and then a speculum was placed in the vagina. Cervix was visualized to be small and atrophic. Normal post-menopausal cervix. There was a laceration on the posterior fornix, which was bleeding moderately. It was superficial and not deep. Rectal exam was done to confirm integrity of rectovaginal mucosa, it was intact. The speculum was placed again the blood was cleaned, the oozing was partially controlled with pressure with a sponge, and then Mikey powder was squirted over the laceration, but unable to squirt it due to the distance from the introitus. Then it was again partially controlled with pressure and then a piece of Surgicel was placed over this superficial mucosal laceration and then vagina was packed with a bacitracin-soaked packing and then an excellent hemostasis was achieved. Then a Marino catheter was inserted into the bladder to drain for 24 hours with the vaginal packing in. The patient tolerated the procedure well. Sponge, lap, instrument count was correct x2. She was given 2 grams of cefazolin before surgery. She was taken out from lithotomy position, cleaned, dried, and taken to recovery room in stable condition. No complications happened and I was present during whole procedure. I attest to the content of the Intraoperative Record and any orders documented therein. Any exceptions are noted below. MANAV
[2019-10-16] MEDS: SODIUM CHLORIDE 0.9% 1000ML 1,000 ML IV SCH (23:38)
[2019-10-17 06:06] LABS: Basophils # (auto) 0.02 K/uL (0-0.2); Basophils % (auto) 0.2 %; Eosinophils # (auto) 0.31 K/uL (0-0.5); Eosinophils % (auto) 3.4 %; Hematocrit (blood only) 29.1 % (37-47); Hemoglobin 9.6 g/dL (12.0-16.0); Immature Granulocytes # (auto) 0.01 K/uL (0.00-0.02); Immature Granulocytes % (auto) 0.1 %; Lymphocytes # (auto) 2.46 K/uL (1.2-3.4); Lymphocytes % (auto) 26.7 %; Mean Corpuscular Hemoglobin 29.2 pg (25-34); Mean Corpuscular Volume 88.4 fL (80-100); Mean Platelet Volume 10.4 fL (7.4-10.4); Monocytes # (auto) 0.73 K/uL (0.11-0.59); Monocytes % (auto) 7.9 %; Neutrophils # (auto) 5.69 K/uL (1.4-6.5); Neutrophils % (auto) 61.7 %; Platelet Count 201 K/uL (130-400); RDW Coefficient of Variation 14.2 % (11.5-14.5); RDW Standard Deviation 46.2 fL (36.4-46.3); Red Blood Count 3.29 M/uL (4.2-5.4); White Blood Count 9.22 K/uL (4.8-10.8)
[2019-10-17] MEDS: SODIUM CHLORIDE 0.9% 1000ML 1,000 ML IV SCH ×2 (06:08→23:09)
[2019-10-17] MEDS: FERROUS SULFATE 325 MG TAB PO SCH (08:46)
--- NOTE | 2019-10-17 09:23 | Anesthesiology Progress Note ---
Date of Service October 17, 2019 Anesthesia Post Procedure Vital Signs Vital Signs: Temp Pulse Pulse Pulse Pulse Resp BP 10/17/19 07:06 36.5 C 60 16 10/17/19 03:35 36.6 C 67 18 10/16/19 22:52 36.5 C 63 16 10/16/19 21:40 36.4 C L 62 16 10/16/19 20:50 36.3 C L 67 18 10/16/19 20:35 36.3 C L 90 18 10/16/19 20:00 36.3 C L 63 15 10/16/19 19:30 36.6 C 69 16 10/16/19 19:20 69 16 10/16/19 19:14 36.5 C 87 16 10/16/19 17:52 37 C 76 18 10/16/19 17:30 73 18 140/61 10/16/19 17:20 71 15 10/16/19 17:16 73 18 180/65 H 10/16/19 17:10 77 19 10/16/19 17:00 72 16 172/71 H 10/16/19 16:50 69 19 10/16/19 16:48 69 14 161/85 H 10/16/19 16:31 78 20 139/114 H 10/16/19 16:30 70 16 10/16/19 16:20 74 17 10/16/19 16:15 74 17 145/81 H 10/16/19 16:12 70 18 10/16/19 16:11 70 16 149/60 H 10/16/19 16:10 62 21 10/16/19 16:04 64 17 10/16/19 16:01 60 15 182/73 H 10/16/19 13:52 36.7 C 62 17 160/62 H BP BP Pulse Ox 10/17/19 07:06 136/68 98 10/17/19 03:35 136/69 98 10/16/19 22:52 129/71 97 10/16/19 21:40 126/64 99 10/16/19 20:50 137/59 L 97 10/16/19 20:35 146/75 H 96 10/16/19 20:00 140/65 96 10/16/19 19:30 147/58 H 95 10/16/19 19:20 143/62 H 95 10/16/19 19:14 148/57 H 96 10/16/19 17:52 133/85 96 10/16/19 17:30 97 10/16/19 17:20 98 10/16/19 17:16 99 10/16/19 17:10 99 10/16/19 17:00 98 10/16/19 16:50 96 10/16/19 16:48 96 10/16/19 16:31 98 10/16/19 16:30 97 10/16/19 16:20 97 10/16/19 16:15 97 10/16/19 16:12 97 10/16/19 16:11 99 10/16/19 16:10 100 10/16/19 16:04 99 10/16/19 16:01 98 10/16/19 13:52 99 Notes Mental Status: alert / awake / arousable and participated in evaluation Nausea / Vomiting: adequately controlled Pain: adequately controlled Airway Patency, RR, SpO2: stable & adequate BP & HR: stable & adequate Hydration State: stable & adequate Neuraxial Anesthesia: was administered and sensory block resolved Anesthetic Complications: no major complications apparent Notes: pt still has urinary catheter in place
--- NOTE | 2019-10-17 11:29 | Gynecologic Progress Note ---
Date of Service October 17, 2019 Assessment & Plan Admission and Anticipated Discharge Date Admission Date: October 16, 2019 Subjective Pt doing well s/p foreign body removal from vagina pt has dementia pt removed Iv from her arm tolerating Po food and meds Stabel H/H Plan advance diet [facility]/c back to [facility] this PM Results & Data ([facility]) Vital Signs (Past 12 Hours) Vital Signs Temp Pulse Resp BP Pulse Ox 10/17/19 07:06 36.5 C 60 16 136/68 98 10/17/19 03:35 36.6 C 67 18 136/69 98
--- NOTE | 2019-10-17 11:56 | Gynecologic Progress Note ---
Date of Service October 17, 2019 Assessment & Plan Admission and Anticipated Discharge Date Admission Date: October 16, 2019 Subjective Vaginal pack and hadley removed minimal bleeding Results & Data ([facility]) Vital Signs (Past 12 Hours) Vital Signs Temp Pulse Resp BP Pulse Ox 10/17/19 07:06 36.5 C 60 16 136/68 98 10/17/19 03:35 36.6 C 67 18 136/69 98
[2019-10-18] MEDS: SODIUM CHLORIDE 0.9% 1000ML 1,000 ML IV SCH (06:54)
[2019-10-18] MEDS: FERROUS SULFATE 325 MG TAB PO SCH (08:39)
--- NOTE | 2019-10-22 09:15 | Discharge Summary (DS) ---
DETAILS OF ADMISSION: The patient is an 84-year-old postmenopausal female with a history of dementia. She was brought from group home to ER on 10/15 evening with heavy vaginal bleeding. She was passing clots and the ER physician noted a foreign body in the vagina and called me. I came for a consult. There was a large firm plastic cap in the vagina, tightly snug to the vaginal cuevas with active heavy bleeding. The patient could not tolerate removal of foreign body in the ER, so we took her to the OR to remove the foreign object and control the hemorrhage. She was taken to OR on the same night and received a spinal epidural by Dr. Meza and the foreign body was removed. There was bleeding on the posterior fornix, which was controlled with hemostatic agents and the vagina was packed with long sponge soaked with bacitracin and Marino catheter was inserted. She was taken to the regular floor for observation overnight and keep the vaginal packing for 24 hours. Her vital signs were stable, afebrile. Her H and H were stable, on admission it was 12.7/38.9. She was watched overnight. She had no bleeding. Her Mairno was draining clear urine and vital signs were stable, afebrile. She tolerated regular diet and next day, after 24 hours, she had no bleeding. Her H and H was 9.6/29.7. Her vaginal packing was removed, there was no blood in the packing, by Dr. Lin. She was discharged to group home stable and is to be followed in the office. MANAV
== END 2019-10-18 15:16 | disposition home or self-care (01) ==
LOC: ED 13:46 → 3E 17:30 → OR 17:30

== ENCOUNTER 2019-10-20 05:30 | Observation (INO) ==
[2019-10-20] MEDS ORDERED: SODIUM CHLORIDE 0.9% 1000ML 1,000 ML IV STA (05:48)
--- NOTE | 2019-10-20 05:59 | Emergency Department Note ---
Impression & Plan Vaginal hemorrhage ED Provider Note NAME: LAUREN COLBY AGE: 84 SEX: F ARRIVES VIA: Ambulance INFORMANT: [Patient] EMS ED PROVIDER(S): Denys Brody MD CHIEF COMPLAINT: Vaginal bleeding PLAN: Disposition: Treatment by OB-truck engine assembler Condition: [Good] MEDICAL DECISION MAKING: Patient was recently here in the hospital for vaginal bleeding and foreign body removal. She was discharged and now presents back with significant amount of vaginal bleeding. Her examination revealed bleeding from a source that appeared adjacent to the cervix. CBC and laboratory testing performed. Patient was hydrated with normal saline. Consultation was made with Maria Alejandra AGILE SCRUM COACH, Dr Correia. She is evaluating patient in the ER for further treatment. Please see her note for details. Triage Nursing notes reviewed and agree them. [Prior medical records reviewed] patient was here in the hospital for vaginal bleeding. Her work-up revealed a vaginal foreign body. Vital Signs: reviewed and remarkable for [no significant abnormalities] Differential diagnosis: Etiologies such as vaginal laceration, postmenopausal bleeding, foreign body, dysfunction uterine bleeding, bleeding dyscrasia, trauma, infection, as well as others were entertained. ER treatment provided: Saline hydration Diagnostics interpreted by me: Laboratory studies: [See below] moderate anemia on CBC. Chemistry panel unremarkable. Imaging studies: Deferred Consultation(s): Maria Alejandra AGILE SCRUM COACH, Dr. Correia. HPI:The patient is a 84 year old female who presents to the Emergency Room with complaints of vaginal bleeding. This started yesterday and is worsening. The patient denies associated symptoms. No abdominal pain, fever, chest pain, breathing difficulty or vaginal pain. She reportedly bled through 2 pads and undergarments in the last few hours. She recently was in the ER for vaginal bleeding and a vaginal foreign body was discovered. This was removed by AGILE SCRUM COACH. The patient has dementia and the history is limited. ROS: See above HPI for pertinent positives & negatives. A total of [10] systems reviewed and were otherwise negative. PAST MEDICAL HISTORY:[See Below] hyperlipidemia, dementia PAST SURGICAL HISTORY:[See Below] FAMILY HISTORY:[See Below] SOCIAL HISTORY:[See Below] resides in a [facility]. HOME MEDICATIONS:[See Below] reviewed in EMR ALLERGIES:[See Below] VITALS:[See Below] PHYSICAL EXAMINATION: GENERAL: Awake, alert, well-appearing, in no distress HENT: Normocephalic, atraumatic. Oropharynx unremarkable. EYES: Normal conjunctiva. Sclera non-icteric. NECK: Inspection normal. Non-tender. Supple. No nuchal rigidity. FROM. No masses. RESPIRATORY: Clear to auscultation. No wheezes. No rales. Normal respiratory effort. CARDIAC: Normal rate. Normal rhythm. No murmurs. No rubs. Extremities warm and well perfused. Pulses equal. No JVD. GI: Soft, non-distended. No tenderness to palpation. No rebound or guarding. No masses. : Normal external genitalia. Moderate bleeding noted. Several large clots in the vaginal vault. Speculum examination raises concerns for possible bleeding source at the posterior aspect of the cervix. Difficult to ascertain the exact location. No obvious foreign bodies noted. MUSCULOSKELETAL: Atraumatic. Chest examination reveals no tenderness. The back is symmetrical on inspection without obvious abnormality. There is no CVA tenderness to palpation. No joint edema. NEURO: Demented sensorium. No sensory or motor deficits noted. SKIN: No rash or jaundice noted. ED COURSE: [Critical Care:] [None] Denys Brody MD Past Med/Surg History Social History Preferred Language: Montserratian Communication Ability: Impaired marital status: Current Living Situation: Residential Current Living Situation Comment: [facility] Feels Safe at Home: Yes Smoking Status: Never smoker Allergies Allergies Allergy/AdvReac Type Severity Reaction Status Date / Time No Known Allergies Allergy Verified 10/20/19 05:57 Home Meds Home Medications Medication Instructions Recorded Confirmed D-Mannose Cap 1,000 mg PO DAILY 09/30/19 10/20/19 acetaminophen 500 mg PO TID MDD 3 GMS APAP/24 09/30/19 10/20/19 HOURS acetaminophen 650 mg PO Q4H PRN MDD 3 GMS 09/30/19 10/20/19 APAP/24 HOURS aspirin 325 mg PO DAILY 09/30/19 10/20/19 atorvastatin 40 mg PO HS 09/30/19 10/20/19 donepezil 10 mg PO HS 09/30/19 10/20/19 famotidine 20 mg PO BID 04/01/20 04/21/20 melatonin 6 mg PO HS 09/30/19 10/20/19 potassium chloride 10 meq PO DAILY 09/30/19 10/20/19 escitalopram oxalate 20 mg PO DAILY 10/16/19 10/20/19 Previous Rx's Medication Instructions Recorded docusate sodium [Colace] 100 mg PO BID #60 cap 10/17/19 ferrous sulfate 325 mg PO QAM #30 tab 10/17/19 Results & Data (ED) Vital Signs Vital Signs - 24 hr 10/20/19 05:38 Temperature 36.8 C Temperature Source Oral Pulse Rate 65 Respiratory Rate 18 Respiratory Effort / Characteristics Non-Labored Spontaneous Respiratory Depth Normal Respiratory Pattern Regular Blood Pressure 164/87 H Blood Pressure Mean 112 Blood Pressure Position Lying Pulse Oximetry 99 Oxygen Delivery Method Room Air Sepsis Recent Fever Within 48 Hours No Sepsis New/Unexplained Change in Mental Status No Sepsis Action Taken by Nursing No Action Required Laboratory Data Result diagrams: 10/20/19 05:55 10/20/19 05:55 Lab Results 10/20/19 10/20/19 10/20/19 Range/Units 05:55 05:55 05:55 WBC 9.38 (4.8-10.8) K/uL RBC 3.17 L (4.2-5.4) M/uL Hgb 9.2 L (12.0-16.0) g/dL Hct 27.8 L (37-47) % MCV 87.7 (80-100) fL MCH 29.0 (25-34) pg MCHC 33.1 (32-36) g/dL RDW Std Deviation 44.2 (36.4-46.3) fL RDW Coeff of Anyi 13.7 (11.5-14.5) % Plt Count 230 (130-400) K/uL MPV 10.0 (7.4-10.4) fL Immature Gran % (Auto) 0.2 % Neut % (Auto) 66.9 % Lymph % (Auto) 20.3 % Hardy % (Auto) 7.8 % Eos % (Auto) 4.4 % Baso % (Auto) 0.4 % Immature Gran # (Auto) 0.02 (0.00-0.02) K/uL Neut # (Auto) 6.28 (1.4-6.5) K/uL Lymph # (Auto) 1.90 (1.2-3.4) K/uL Hardy # (Auto) 0.73 H (0.11-0.59) K/uL Eos # (Auto) 0.41 (0-0.5) K/uL Baso # (Auto) 0.04 (0-0.2) K/uL PT 9.9 (9.0-12.0) Seconds INR 0.9 (0.9-1.1) APTT 21.3 (21.0-31.0) Seconds PTT Ratio 0.8 Sodium 140 (136-145) mmol/L Potassium 3.8 (3.5-5.1) mmol/L Chloride 109 H (98-107) mmol/L Carbon Dioxide 27 (21-32) mmol/L Anion Gap 4.0 (3-11) BUN 15 (7-18) mg/dl Creatinine 0.69 (0.6-1.2) mg/dl Est Cr Clr Drug Dosing Not Reportable Est GFR ( Amer) 91.4 Est GFR (Non-Af Amer) 78.8 BUN/Creatinine Ratio 22.4 H (10-20) Glucose 110 H (70-99) mg/dl Calcium 8.6 (8.5-10.1) mg/dl Total Bilirubin 0.5 (0.2-1) mg/dl AST 15 (15-37) U/L ALT 22 (12-78) U/L Alkaline Phosphatase 54 (45-117) U/L Total Protein 6.6 (6.4-8.2) gm/dl Albumin 3.2 L (3.4-5.0) gm/dl Globulin 3.4 (2.5-4.0) gm/dl Albumin/Globulin Ratio 0.9 (0.9-2) Administered Medications Sodium Chloride (Nss 1000ml) 1,000 mls @ 125 mls/hr IV .Q8H STA Stop: 10/20/19 13:47 Last Admin: 10/20/19 06:14 Dose: 125 mls/hr Documented by: [id number] Discharge Plan Visit Data Chief Complaint: Vaginal Bleeding Stated Complaint: VAGINAL BLEED ED Provider: Denys Brody Discharge Problem: Vaginal hemorrhage Forms Stand Alone Forms: My [facility] Prescriptions Prescriptions: No Action escitalopram oxalate 20 mg Tablet 20 mg PO DAILY RF: 0 ferrous sulfate 325 mg (65 mg iron) Tablet,Delayed Release (Dr/Ec) 325 mg PO QAM Qty: 30 RF: 0 docusate sodium [Colace] 100 mg capsule 100 mg PO BID Qty: 60 RF: 0 atorvastatin 40 mg Tablet 40 mg PO HS RF: 0 acetaminophen 325 mg Tablet 650 mg PO Q4H MDD 3 GMS APAP/24 HOURS PRN (Reason: Fever Or Pain) RF: 0 donepezil 10 mg Tablet 10 mg PO HS RF: 0 potassium chloride 10 mEq Tablet Extended Release 10 meq PO DAILY RF: 0 melatonin 3 mg Tablet 6 mg PO HS RF: 0 acetaminophen 500 mg Tablet 500 mg PO TID MDD 3 GMS APAP/24 HOURS RF: 0 famotidine 20 mg Tablet 20 mg PO BID RF: 0 aspirin 325 mg Tablet,Delayed Release (Dr/Ec) 325 mg PO DAILY RF: 0 D-Mannose Cap 500 mg capsule 1,000 mg PO DAILY RF: 0
[2019-10-20 06:08] LABS: Basophils # (auto) 0.04 K/uL (0-0.2); Basophils % (auto) 0.4 %; Eosinophils # (auto) 0.41 K/uL (0-0.5); Eosinophils % (auto) 4.4 %; Hematocrit (blood only) 27.8 % (37-47); Hemoglobin 9.2 g/dL (12.0-16.0); Immature Granulocytes # (auto) 0.02 K/uL (0.00-0.02); Immature Granulocytes % (auto) 0.2 %; Lymphocytes % (auto) 20.3 %; Mean Corpuscular Hgb Conc 33.1 g/dL (32-36); Mean Corpuscular Volume 87.7 fL (80-100); Monocytes # (auto) 0.73 K/uL (0.11-0.59); Monocytes % (auto) 7.8 %; Neutrophils # (auto) 6.28 K/uL (1.4-6.5); Neutrophils % (auto) 66.9 %; Platelet Count 230 K/uL (130-400); RDW Coefficient of Variation 13.7 % (11.5-14.5); RDW Standard Deviation 44.2 fL (36.4-46.3); Red Blood Count 3.17 M/uL (4.2-5.4); White Blood Count 9.38 K/uL (4.8-10.8)
[2019-10-20 06:19] LABS: INR 0.9 (0.9-1.1); Partial Thromboplastin Ratio 0.8; Partial Thromboplastin Time 21.3 Seconds (21.0-31.0); Prothrombin Time 9.9 Seconds (9.0-12.0)
[2019-10-20 06:24] LABS: Alanine Aminotransferase 22 U/L (12-78); Albumin Level 3.2 gm/dl (3.4-5.0); Aspartate Aminotransferase 15 U/L (15-37); BUN Creatinine Ratio 22.4 (10-20); Blood Urea Nitrogen 15 mg/dl (7-18); Calcium 8.6 mg/dl (8.5-10.1); Carbon Dioxide 27 mmol/L (21-32); Chloride 109 mmol/L (98-107); Est GFR (African American) 91.4; Est GFR (Non-African American) 78.8; Glucose 110 mg/dl (70-99); Potassium 3.8 mmol/L (3.5-5.1); Sodium 140 mmol/L (136-145)
[2019-10-20 06:27] LABS: Albumin Globulin Ratio 0.9 (0.9-2); Alkaline Phosphatase 54 U/L (45-117); Bilirubin,Total 0.5 mg/dl (0.2-1); Globulin 3.4 gm/dl (2.5-4.0); Total Protein 6.6 gm/dl (6.4-8.2)
[2019-10-20] MEDS ORDERED: FERRIC SUBSULFATE 8 GM VIAL TOP STA (06:37)
[2019-10-20] MEDS ORDERED: ACETAMINOPHEN 325 MG TAB PO PRN (07:16)
--- NOTE | 2019-10-20 07:18 | History & Physical Report ---
Date of Service October 20, 2019 Assessment & Plan (1) Abnormal vaginal bleedin yo postmenopausal female s/p heavy VB, foreign object in vagina, unable to remove in bed side on 10/15 and had EUA, pelvic exam, removal of foreign object , packing in OR to stop this active bleeding She is back with vaginal bleeding Stopped with Monsel's solution and packed with vaginal packing VSS Afebrile H&H stable Plan to admit for observation for 24 hours Remove packing and hadley in am Stop Aspirin History of Present Illness Primary Care Provider: [facility] Patient is a 84 yo postmenopausal female who is s/p active heavy VB, foreign object in vagina, unable to remove in bed side VSS Afebrile She had EUA, pelvic exam, removal of foreign object , packing in ER to stop active bleeding on 10/16/2019 and d/c on 10/16 after removal of packing She had no bleeding until this morning when she was brought back from residential with VB ER physician removed some cloths and called me Patient has dementia and had no knowledge of what is going on Allergies Allergy/AdvReac Type Severity Reaction Status Date / Time No Known Allergies Allergy Verified 10/20/19 05:57 Home Medications Home Medications Medication Instructions Recorded Confirmed Type D-Mannose Cap 1,000 mg PO DAILY 09/30/19 10/20/19 History acetaminophen 500 mg PO TID MDD 3 GMS APAP/24 09/30/19 10/20/19 History HOURS acetaminophen 650 mg PO Q4H PRN MDD 3 GMS 09/30/19 10/20/19 History APAP/24 HOURS aspirin 325 mg PO DAILY 09/30/19 10/20/19 History atorvastatin 40 mg PO HS 09/30/19 10/20/19 History donepezil 10 mg PO HS 09/30/19 10/20/19 History famotidine 20 mg PO BID 09/30/19 10/20/19 History melatonin 6 mg PO HS 09/30/19 10/20/19 History potassium chloride 10 meq PO DAILY 09/30/19 10/20/19 History escitalopram oxalate 20 mg PO DAILY 10/16/19 10/20/19 History docusate sodium [Colace] 100 mg PO BID #60 cap 10/17/19 10/20/19 Rx ferrous sulfate 325 mg PO QAM #30 tab 10/17/19 10/20/19 Rx Patient History Social History Preferred Language: Lao Communication Ability: Impaired marital status: Current Living Situation: Skilled Nursing Current Living Situation Comment: [facility], secured dementia community Feels Safe at Home: Yes Smoking Status: Never smoker Physical Exam Constitutional: WD/WN, vitals as above NAD Genitourinary: Blood cloths in perineum Spekulum exam: removed 5x5 cm cloth No active bleeding at posterior fornix Applied Monsel's solutions and packed with vaginal packing with Mikey powder on it. Placed a hadley catheter Results & Data Vital Signs (Past 12 Hours) Vital Signs Temp Pulse Pulse Resp BP BP Pulse Ox 10/20/19 06:35 66 16 155/77 H 99 10/20/19 05:38 36.8 C 65 18 164/87 H 99 Laboratory Results Lab Results 10/20/19 10/20/19 10/20/19 Range/Units 05:55 05:55 05:55 WBC 9.38 (4.8-10.8) K/uL RBC 3.17 L (4.2-5.4) M/uL Hgb 9.2 L (12.0-16.0) g/dL Hct 27.8 L (37-47) % MCV 87.7 (80-100) fL MCH 29.0 (25-34) pg MCHC 33.1 (32-36) g/dL RDW Std Deviation 44.2 (36.4-46.3) fL RDW Coeff of Anyi 13.7 (11.5-14.5) % Plt Count 230 (130-400) K/uL MPV 10.0 (7.4-10.4) fL Immature Gran % (Auto) 0.2 % Neut % (Auto) 66.9 % Lymph % (Auto) 20.3 % Independence % (Auto) 7.8 % Eos % (Auto) 4.4 % Baso % (Auto) 0.4 % Immature Gran # (Auto) 0.02 (0.00-0.02) K/uL Neut # (Auto) 6.28 (1.4-6.5) K/uL Lymph # (Auto) 1.90 (1.2-3.4) K/uL Independence # (Auto) 0.73 H (0.11-0.59) K/uL Eos # (Auto) 0.41 (0-0.5) K/uL Baso # (Auto) 0.04 (0-0.2) K/uL PT 9.9 (9.0-12.0) Seconds INR 0.9 (0.9-1.1) APTT 21.3 (21.0-31.0) Seconds PTT Ratio 0.8 Sodium (136-145) mmol/L Potassium (3.5-5.1) mmol/L Chloride (98-107) mmol/L Carbon Dioxide (21-32) mmol/L Anion Gap (3-11) BUN (7-18) mg/dl Creatinine (0.6-1.2) mg/dl Est Cr Clr Drug Dosing Est GFR ( Amer) Est GFR (Non-Af Amer) BUN/Creatinine Ratio (10-20) Glucose (70-99) mg/dl Calcium (8.5-10.1) mg/dl Total Bilirubin (0.2-1) mg/dl AST (15-37) U/L ALT (12-78) U/L Alkaline Phosphatase (45-117) U/L Total Protein (6.4-8.2) gm/dl Albumin (3.4-5.0) gm/dl Globulin (2.5-4.0) gm/dl Albumin/Globulin Ratio (0.9-2) Blood Type B Positive Antibody Screen NEGATIVE 10/20/19 Range/Units 05:55 WBC (4.8-10.8) K/uL RBC (4.2-5.4) M/uL Hgb (12.0-16.0) g/dL Hct (37-47) % MCV (80-100) fL MCH (25-34) pg MCHC (32-36) g/dL RDW Std Deviation (36.4-46.3) fL RDW Coeff of Anyi (11.5-14.5) % Plt Count (130-400) K/uL MPV (7.4-10.4) fL Immature Gran % (Auto) % Neut % (Auto) % Lymph % (Auto) % Independence % (Auto) % Eos % (Auto) % Baso % (Auto) % Immature Gran # (Auto) (0.00-0.02) K/uL Neut # (Auto) (1.4-6.5) K/uL Lymph # (Auto) (1.2-3.4) K/uL Independence # (Auto) (0.11-0.59) K/uL Eos # (Auto) (0-0.5) K/uL Baso # (Auto) (0-0.2) K/uL PT (9.0-12.0) Seconds INR (0.9-1.1) APTT (21.0-31.0) Seconds PTT Ratio Sodium 140 (136-145) mmol/L Potassium 3.8 (3.5-5.1) mmol/L Chloride 109 H (98-107) mmol/L Carbon Dioxide 27 (21-32) mmol/L Anion Gap 4.0 (3-11) BUN 15 (7-18) mg/dl Creatinine 0.69 (0.6-1.2) mg/dl Est Cr Clr Drug Dosing Not Reportable Est GFR ( Amer) 91.4 Est GFR (Non-Af Amer) 78.8 BUN/Creatinine Ratio 22.4 H (10-20) Glucose 110 H (70-99) mg/dl Calcium 8.6 (8.5-10.1) mg/dl Total Bilirubin 0.5 (0.2-1) mg/dl AST 15 (15-37) U/L ALT 22 (12-78) U/L Alkaline Phosphatase 54 (45-117) U/L Total Protein 6.6 (6.4-8.2) gm/dl Albumin 3.2 L (3.4-5.0) gm/dl Globulin 3.4 (2.5-4.0) gm/dl Albumin/Globulin Ratio 0.9 (0.9-2) Blood Type Antibody Screen
--- NOTE | 2019-10-20 07:23 | Emergency Department Note ---
ED Visit Note I received this patient from Dr. GOMEZ in change of shift signout. Please see his note for initial history and physical exam. The patient is an 84-year-old female who presented to the emergency department for vaginal bleeding. She had very heavy bleeding initially with clots. She was here recently with similar complaints and at that time was found to have a vaginal foreign body. She was found to have more of a posterior fornix ulcer with no discrete laceration at that time. She was treated with packing and conservative methods but returns now for increased symptoms. She had a drop in her hemoglobin. Her hemoglobin does appear to be stable between the last 2 measurements but because of the amount of bleeding she was evaluated by [facility] in the emergency department. She had another packing placed. I discussed the patient's condition with the on- call PRO[facility] physician and she feels the patient would benefit from continued observation in an inpatient setting to ensure bleeding does not worsen and her hemoglobin remained stable. The patient was agreeable to this procedure as well as this plan. A Marino catheter was placed with nursing staff. The patient tolerated this procedure well. I discussed the case with the emergency department outpatient pharmacy manager. .
[2019-10-20] MEDS ORDERED: FERROUS SULFATE 325 MG TAB PO SCH (09:00)
[2019-10-20] MEDS ORDERED: POTASSIUM CHLORIDE 10 MEQ TABCR PO SCH (09:00)
[2019-10-20] MEDS ORDERED: ESCITALOPRAM OXALATE 20 MG TAB PO SCH (09:00)
[2019-10-20] MEDS ORDERED: D MANNOSE 1000 MG PO SCH (09:00)
[2019-10-20] MEDS: ACETAMINOPHEN 500 MG TAB PO SCH ×3 (10:58→22:56)
[2019-10-20] MEDS: FAMOTIDINE 20 MG TAB PO SCH ×2 (12:04→22:56)
[2019-10-20] MEDS: DOCUSATE SODIUM 100 MG CAP PO SCH ×2 (12:05→22:55)
[2019-10-20] MEDS ORDERED: PNEUMOCOCCAL Polysaccharide Vaccine 25mcg/0.5mL vial/Syr IM ONE (15:00)
--- NOTE | 2019-10-20 18:37 | Gynecologic Progress Note ---
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 I noted bright red bleeding soaking ricardo pads. Packing that was placed this morning came out and I attempted to place speculum but was unable to see bleeding source. Half-inch packing placed vaginally. Nurse called back soon afterwards with bleeding continuing and packing fell out. I will take the patient back to the OR to try and visualize source bleeding. Results & Data ([facility]) Vital Signs (Past 12 Hours) Vital Signs Temp Pulse Pulse Resp BP Pulse Ox 10/20/19 15:31 36.7 C 65 19 157/65 H 100 10/20/19 12:00 36.6 C 69 18 134/72 99 10/20/19 08:20 36.7 C 65 65 18 157/65 H 100 10/20/19 08:00 71 18 178/56 H 100 10/20/19 06:35 66 16 155/77 H 99
[2019-10-20 19:05] LABS: Basophils # (auto) 0.03 K/uL (0-0.2); Basophils % (auto) 0.3 %; Eosinophils # (auto) 0.36 K/uL (0-0.5); Eosinophils % (auto) 3.5 %; Hematocrit (blood only) 25.6 % (37-47); Hemoglobin 8.6 g/dL (12.0-16.0); Immature Granulocytes # (auto) 0.03 K/uL (0.00-0.02); Immature Granulocytes % (auto) 0.3 %; Lymphocytes # (auto) 3.15 K/uL (1.2-3.4); Lymphocytes % (auto) 30.9 %; Mean Corpuscular Hemoglobin 29.4 pg (25-34); Mean Corpuscular Volume 87.4 fL (80-100); Mean Platelet Volume 10.1 fL (7.4-10.4); Monocytes # (auto) 0.71 K/uL (0.11-0.59); Neutrophils # (auto) 5.92 K/uL (1.4-6.5); Platelet Count 250 K/uL (130-400); RDW Coefficient of Variation 14.1 % (11.5-14.5); RDW Standard Deviation 44.6 fL (36.4-46.3); Red Blood Count 2.93 M/uL (4.2-5.4)
[2019-10-20] MEDS ORDERED: SODIUM CHLORIDE 0.9% 250 ML IV PRN (19:24)
--- NOTE | 2019-10-20 19:38 | Anesthesiology Consultation ---
Date of Service October 20, 2019 Assessment & Plan (1) Encounter for pre-operative examination: Chart Review Chart Review: Acceptable Risk for Surgery and Patient NOT seen in Pre Admission Testing Consults Requested none ASA [id number] Proposed Anesthesia Anesthesia Type: MAC Spinal (saddle block) Risk / Benefits Reviewed With: PT / POA / Parent / Guardian, Accepts Plan and Informed Consent Obtained Additional Notes Patient was brought down to asu 1, significant hemorrhaging from vagina. on arrival to holding area, she was unresponsive. she quickly had agonal breathing and bradycardia with BP 60s/20s. pulses strong. IV fluids were immediately started and respirations were supported with bag mask ventilation while preparations made to intubate and start blood products. the surgeon was called to bedside to pack the vagina. after this, and prior to intubation and blood, the patient responded to fluids and respiratory support. HR improved to 70s and BP 120s/60s. We did start blood products and the patient began to awaken and speak, although she was disoriented. I would like to avoid intubation and general anesthesia if possible for this patient both from a hemodynamic and a mental status standpoint. If we are able to ressucitate with blood prior to OR, will plan for a saddle block. If the patient deteriorates prior to the procedure we will plan for emergent intubation and proceeding under general anesthesia with likely post operative ventilator needed. History Surgery Operation Date: 10/20/19 19:30 Proposed Procedures p Dilatation and Curettage - All Gallardo MD Height/Weight Height: 5 ft 1 in Weight: 71 kg Allergies Allergy/AdvReac Type Severity Reaction Status Date / Time No Known Allergies Allergy Verified 10/20/19 05:57 Medications Home Medications Medication Instructions Recorded Confirmed Last Taken D-Mannose Cap 1,000 mg PO DAILY 09/30/19 10/20/19 10/19/19 08:00 acetaminophen 500 mg PO TID MDD 3 GMS APAP/24 09/30/19 10/20/19 10/19/19 17:00 HOURS acetaminophen 650 mg PO Q4H PRN MDD 3 GMS 09/30/19 10/20/19 Unknown APAP/24 HOURS aspirin 325 mg PO DAILY 09/30/19 10/20/19 10/19/19 08:00 atorvastatin 40 mg PO HS 09/30/19 10/20/19 10/19/19 20:00 donepezil 10 mg PO HS 09/30/19 10/20/19 10/19/19 20:00 famotidine 20 mg PO BID 09/30/19 10/20/19 10/19/19 20:00 melatonin 6 mg PO HS 09/30/19 10/20/19 10/19/19 20:00 potassium chloride 10 meq PO DAILY 09/30/19 10/20/19 10/19/19 08:00 escitalopram oxalate 20 mg PO DAILY 10/16/19 10/20/19 10/19/19 08:00 docusate sodium [Colace] 100 mg PO BID #60 cap 10/17/19 10/20/19 10/19/19 20:00 ferrous sulfate 325 mg PO QAM #30 tab 10/17/19 10/20/19 Unknown Active Medications Generic Name Dose Route Start Last Admin Trade Name Freq PRN Reason Stop Dose Admin Acetaminophen 500 mg 10/20/19 09:00 10/20/19 13:33 Tylenol PO 11/19/19 08:59 500 mg TID CHRISTINE Administration Docusate Sodium 100 mg 10/20/19 09:00 10/20/19 12:05 Colace PO 11/19/19 08:59 Not Given BID CHRISTINE Escitalopram Oxalate 20 mg 10/20/19 09:00 10/20/19 12:04 Lexapro Tab PO 11/19/19 08:59 20 mg DAILY CHRISTINE Administration Famotidine 20 mg 10/20/19 09:00 10/20/19 12:04 Pepcid PO 11/19/19 08:59 20 mg BID CHRISTINE Administration Ferrous Sulfate 325 mg 10/20/19 09:00 10/20/19 12:04 Feosol PO 11/19/19 08:59 325 mg QAM CHRISTINE Administration Non-Formulary Medication 1,000 mg 10/20/19 09:00 10/20/19 12:05 D-Mannose Cap PO 11/19/19 08:59 Not Given DAILY CHRISTINE Potassium Chloride 10 meq 10/20/19 09:00 10/20/19 12:04 Klor-Con M10 PO 11/19/19 08:59 10 meq DAILY CHRISTINE Administration NPO Date Last Intake of Fluids: 10/20/19 Time Last Intake of Fluids: 17:00 Date Last Intake of Solids: 10/20/19 Time Last Intake of Solids: 17:00 Exercise / Class Metabolic Activity III < 4 Walking/Shop/Light housework Past Anesthesia History No Hx of Anesthesia Complications and No Family Hx of Anesthesia Complications History of PONV No Hx of PONV and No Hx of Motion Sickness Social History Smoking Status: Unknown if ever smoked Do You Dip or Chew Tobacco: No Hx Alcohol Use: No Hx Substance Use: No Physical Exam Vital Signs Last Vital Signs Temp 36.7 C 10/20/19 15:31 Pulse 65 10/20/19 15:31 Resp 19 10/20/19 15:31 BP 157/65 H 10/20/19 15:31 Pulse Ox 100 10/20/19 15:31 ENMT Mouth: no dentition abnormality Thyromental Distance: > or= 3.5 Finger Breadths Mallampati Class: II Neck normal visual inspection Respiratory normal respiratory effort Auscultation: lungs clear to auscultation bilaterally Cardiovascular Rate/Rhythm: regular rate and regular rhythm Psychiatric Orientation: alert Testing Laboratory Results 10/20/19 18:46 10/20/19 05:55 PT 9.9 Seconds (9.0-12.0) 10/20/19 05:55 INR 0.9 (0.9-1.1) 10/20/19 05:55 APTT 21.3 Seconds (21.0-31.0) 10/20/19 05:55 Blood Type Cancelled 10/20/19 18:46 Antibody Screen Cancelled 10/20/19 18:46
--- NOTE | 2019-10-20 19:38 | Gynecologic Progress Note ---
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 Patient became unresponsive and hypotensive with continued bleeding actively. I put another packing in. Blood to be transfused. Patient was bagged and given IV fluids. BP and respirations improved. Results & Data ([facility]) Vital Signs (Past 12 Hours) Vital Signs Temp Pulse Pulse Resp BP Pulse Ox 10/20/19 19:09 37.2 C 95 H 18 63/30 L 100 10/20/19 15:31 36.7 C 65 19 157/65 H 100 10/20/19 12:00 36.6 C 69 18 134/72 99 10/20/19 08:20 36.7 C 65 65 18 157/65 H 100 10/20/19 08:00 71 18 178/56 H 100
[2019-10-20] MEDS ORDERED: ePHEDrine sulfate 50 MG/ML AMP IV PRN (19:41)
[2019-10-20] MEDS ORDERED: ONDANSETRON INJ 2 MG/ML 2 ML VIAL IV PRN (19:41)
[2019-10-20] MEDS ORDERED: ATROPINE SULFATE 0.1 MG/ML 10ML SYR IV PRN (19:41)
[2019-10-20] MEDS ORDERED: fentaNYL citrate 100 MCG/2 ML VIAL IV PRN (19:41)
[2019-10-20 19:42] LABS: Mean Corpuscular Hgb Conc 33.6 g/dL (32-36)
[2019-10-20] MEDS ORDERED: MIDAZOLAM HCL 1 MG/ML 2ML VIAL ONE (20:03)
[2019-10-20] MEDS ORDERED: fentaNYL citrate 100 MCG/2 ML VIAL ONE ×2 (20:03→21:01)
[2019-10-20] MEDS ORDERED: CEFAZOLIN 2000MG 2,000 MG/15 ML SYR IV ONE (20:35)
[2019-10-20] MEDS ORDERED: FERRIC SUBSULFATE 8 GM VIAL ONE (20:51)
[2019-10-20] MEDS ORDERED: ATORVASTATIN 40 MG TAB PO SCH (21:00)
[2019-10-20] MEDS ORDERED: DONEPEZIL HCL 10 MG TAB PO SCH (21:00)
[2019-10-20] MEDS ORDERED: MELATONIN 3 MG TAB PO SCH (21:00)
[2019-10-20] MEDS ORDERED: FLOSEAL HEMOSTATIC MATRIX 10ML TOP ONE (21:10)
--- NOTE | 2019-10-20 21:23 | Post Operative Brief Note ---
Immediate Post Op Note v1 Date of Surgery October 20, 2019 Pre & Post Diagnosis Operation Date: 10/20/19 19:30 Pre-Op Diagnosis: Vaginal Bleeding Post-Op Diagnosis: Vaginal Bleeding, Vaginal Cancer I identified the patient and participated in the time-out.: Yes Procedure Operation Date: 10/20/19 19:30 Actual Procedures p Exam Under Anesthesia, Biopsy of Posterior Vaginal Mass, Oversew Vaginal Laceration(Not Applicable) - All Gallardo MD Surgeon All Gallardo MD Plant Health Manager Dr. Virgen Estimated Blood Loss 50 Findings Consistent with Post-Op Diagnosis
[2019-10-20] MEDS ORDERED: KETOROLAC TROMETHAMINE 15 MG/ML VIAL IV ONE (21:38)
[2019-10-20] MEDS ORDERED: ACETAMINOPHEN 1,000 MG/100 ML VIAL IV PRN (21:38)
[2019-10-20] MEDS ORDERED: LACTATED RINGER'S 1,000 ML IV SCH (21:45)
--- NOTE | 2019-10-20 22:05 | Anesthesiology Progress Note ---
Date of Service October 20, 2019 Anesthesia Post Procedure Vital Signs Vital Signs: Temp Pulse Pulse Pulse Pulse Resp BP 10/20/19 21:55 85 17 10/20/19 21:45 88 16 10/20/19 21:35 87 13 10/20/19 21:29 36.0 C L 92 H 21 10/20/19 19:40 36.8 C 81 24 155/80 H 10/20/19 19:09 37.2 C 95 H 18 10/20/19 15:31 36.7 C 65 19 10/20/19 12:00 36.6 C 69 18 10/20/19 08:20 36.7 C 65 65 18 10/20/19 08:00 71 18 10/20/19 06:35 66 16 10/20/19 05:38 36.8 C 65 18 164/87 H BP BP Pulse Ox 10/20/19 21:55 137/74 100 10/20/19 21:45 105/70 94 10/20/19 21:35 131/66 95 10/20/19 21:29 161/89 H 100 10/20/19 19:40 100 10/20/19 19:09 63/30 L 100 10/20/19 15:31 157/65 H 100 10/20/19 12:00 134/72 99 10/20/19 08:20 157/65 H 100 10/20/19 08:00 178/56 H 100 10/20/19 06:35 155/77 H 99 10/20/19 05:38 99 Transfer of Care Handoff Completed per policy Notes Mental Status: alert / awake / arousable Patient Amnestic to Procedure: Yes Nausea / Vomiting: adequately controlled Pain: adequately controlled Airway Patency, RR, SpO2: stable & adequate BP & HR: stable & adequate Hydration State: stable & adequate Neuraxial Anesthesia: was administered and sensory block is resolving Anesthetic Complications: no major complications apparent Notes: Patient awakened well in pacu. She was unresponsive initially in holding area and disoriented after resuscitation. In pacu she was responding to questions appropriately in pacu.
[2019-10-20 22:57] LABS: Basophils # (auto) 0.05 K/uL (0-0.2); Basophils % (auto) 0.2 %; Eosinophils # (auto) 0.19 K/uL (0-0.5); Eosinophils % (auto) 0.8 %; Hematocrit (blood only) 33.7 % (37-47); Hemoglobin 11.1 g/dL (12.0-16.0); Immature Granulocytes # (auto) 0.19 K/uL (0.00-0.02); Immature Granulocytes % (auto) 0.8 %; Lymphocytes # (auto) 2.66 K/uL (1.2-3.4); Lymphocytes % (auto) 11.7 %; Mean Corpuscular Hemoglobin 29.3 pg (25-34); Mean Corpuscular Hgb Conc 32.9 g/dL (32-36); Mean Corpuscular Volume 88.9 fL (80-100); Mean Platelet Volume 10.6 fL (7.4-10.4); Monocytes # (auto) 1.45 K/uL (0.11-0.59); Monocytes % (auto) 6.4 %; Neutrophils # (auto) 18.14 K/uL (1.4-6.5); Neutrophils % (auto) 80.1 %; Nucleated RBC # (auto) 0.03 K/uL (0-0); Nucleated RBC % (auto) 0.1 %; Platelet Count 209 K/uL (130-400); RDW Coefficient of Variation 13.8 % (11.5-14.5); RDW Standard Deviation 44.5 fL (36.4-46.3); Red Blood Count 3.79 M/uL (4.2-5.4); White Blood Count 22.68 K/uL (4.8-10.8)
--- NOTE | 2019-10-21 01:21 | Operative Report (OR) ---
DATE OF OPERATION: 10/20/2019 PREOPERATIVE DIAGNOSIS: Vaginal bleeding. POSTOPERATIVE DIAGNOSES: Vaginal bleeding plus vaginal cancer. PROCEDURE: Exam under anesthesia, biopsy of posterior vaginal mass, oversew vaginal laceration, and vaginal packing. SURGEON: All Gallardo MD SURGEON: Dr. Virgen. ANESTHESIA: Spinal. FINDINGS: Probable vaginal cancer, biopsy x3 taken. COMPLICATIONS: None. ESTIMATED BLOOD LOSS: 50 mL. CLINICAL HISTORY: The patient is an 84-year-old female, who was admitted today with recurrent vaginal bleeding. She was seen last week on Saturday, had a foreign body removed in the operating room due to bleeding. The patient was packed and was discharged home and sent back to her half-way. She continued to have bleeding and was sent to the hospital where she was seen in the ER this morning and then readmitted. After readmission, she was evaluated, packing was in place. She began having heavy vaginal bleeding and a decision was made after repacking was done and packing fell out due to heavy bleeding to bring the patient to the operating room. Prior to the patient going back to the OR, in holding, the patient became hypotensive with heart rate dropping, respirations dropping, and the patient needed to be bagged and IV fluids given and blood in order to resuscitate the patient. The patient was stabilized, was brought to the OR, and a spinal anesthesia was then given. Timeout was called prior to the start of the procedure and 2 grams of Ancef were given. DESCRIPTION OF PROCEDURE: Under satisfactory spinal anesthesia, the patient was prepped and draped in usual sterile fashion. She was identified. Timeout was called. The patient was placed in dorsal lithotomy position. She had copious clots that were coming out prior to the start of the procedure. After the prep, the vagina was inspected. Retractors were then used to identify the area of bleeding. Posterior wall of the vagina was noted to be erosive. Apparently bleeding site was located and there was an appearance of vaginal cancer, extending posteriorly to the cervix. One small area in particular was identified and three figure of eight 0 Vicryl sutures were then placed to oversew this area to minimize bleeding. The area was inspected and then irrigated with saline. No active bleeding was then noted. A 10 mL of FloSeal was placed in the vagina for hemostasis and then two 1-inch vaginal packing were then placed. Rectal exam revealed no evidence of mass into the rectum from the vagina; however, a thickened vaginal posterior wall was noted consistent with probable vaginal cancer. The patient was stabilized, she was then transferred to the recovery room. All remaining instruments were then removed. Consideration for transfer to [facility] in [place] for localized radiation to control bleeding will be done. EBL 50 mL. The final sponge, needle, and instrument count were found to be correct. The patient was transferred safely to recovery room on a stretcher. I attest to the content of the Intraoperative Record and any orders documented therein. Any exception s are noted below.
[2019-10-21] MEDS ORDERED: OR MISCELLANEOUS MED TOP ONE (07:00)
--- NOTE | 2019-10-28 09:10 | Discharge Summary (DS) ---
The patient was admitted 10/20/2019 from the ER. She had been seen previously a week prior for a vaginal foreign body that was removed causing vaginal bleeding. The patient was sent home back to her long term stable after the foreign body was removed and Monsel's and packing were placed in the vagina. The patient was readmitted from the Emergency Room with vaginal bleeding on 10/20/2019. I was called to the room by the nurse who noted extensive bleeding. The patient had heavy vaginal bleeding, passing large clots, fist sized, and was brought to the OR. The patient subsequently had extensive bleeding. She nearly coded and became hypotensive and unresponsive. She was given IV fluids and then blood was ordered and given. The patient was taken to the operating room. In the operating room a bleeding site was identified. Three [id number] sutures were then applied. It appeared to be consistent with cancer and 3 biopsies were taken separately. The vagina was then dry. FloSeal and then two 1 inch packs were then placed. The patient was stabilized and then she was transferred to [facility] in [place] for further treatment. Condition on transfer was stable. FINAL DISCHARGE DIAGNOSIS: Vaginal bleeding secondary to foreign body.
== END 2019-10-21 01:07 | disposition short-term general hospital (02) ==
LOC: 2W 05:30 → ED 05:30 → 2W 08:10

== ENCOUNTER 2019-10-23 09:44 | Inpatient (IN) ==
[2019-10-23] MEDS ORDERED: SODIUM CHLORIDE 0.9% 1000ML 1,000 ML IV ONE (09:55)
--- NOTE | 2019-10-23 09:59 | Emergency Department Note ---
Impression & Plan Sepsis, Fever, Elevated lactic acid level, Leukocytosis, Discharge from the vagina ED Provider Note NAME: LAUREN COLBY AGE: 84 SEX: F : 1935 ARRIVES VIA: Ambulance INFORMANT: Patient, EMS and dementia unit ED PROVIDER(S): Shlomo Baker DO CHIEF COMPLAINT: Altered mental status with a fever 101.5 HPI: Patient is an 84-year-old female who presents the ER from [facility]. Patient was recently discharged from [facility] yesterday. She was recently admitted here twice and found to have a vaginal foreign body with a laceration with a large amount of bleeding. She was transfused 2 units here. Suture was placed and patient was vaginally packed. She was transferred to [facility]. There she had no bleeding and was discharged home. She presents today as she was found on the floor and found to have a fever of 101.5 and was more confused than her baseline. She is unable to give any history at this time which appears to be consistent with previous presentations. There has been no report of vaginal bleeding in the past 24 hours. History is limited secondary to mentation. ROS: Review of systems limited secondary to mentation. PAST MEDICAL HISTORY:See Below PAST SURGICAL HISTORY:See Below FAMILY HISTORY:See Below SOCIAL HISTORY:See Below HOME MEDICATIONS:See Below ALLERGIES:See Below VITALS:See Below PHYSICAL EXAMINATION: GENERAL: Sitting up in bed, alert, pleasantly demented EYE EXAM: normal conjunctiva. OROPHARYNX: no exudate, no erythema, lips, buccal mucosa, and tongue normal and mucous membranes are moist NECK: supple, no nuchal rigidity, no adenopathy, non-tender LUNGS: Clear to auscultation. Normal chest wall mechanics HEART: no murmurs, S1 normal and S2 normal ABDOMEN: abdomen soft, non-tender, normo-active bowel sounds, no masses, no rebound or guarding. : Normal external genitalia. Difficult exam but patient appeared to have a suture in place in the vagina at about 4-6 o'clock. There was a green purulent drainage with some blood from this region as well. UPPER EXTREMITIES: upper extremities are grossly normal. LOWER EXTREMITIES: No pitting edema. NEURO EXAM: Awake and alert not oriented to person place or time, moving all extremities nonfocal MEDICAL DECISION MAKING: Patient is an 84-year-old female who is demented who was just recently admitted twice to [facility] and transferred to [facility] for vaginal laceration. She was transfused 2 units while she was here. She presents as she has been more confused at [facility] and had a fever of 101.5. She was brought in by EMS. IV was established blood work was obtained. Labs showed a leukocytosis of 16,000 down from 22. Hemoglobin is at 9.6 which is appropriate after 2 units of transfusion. Sodium slightly low at 135. Hypokalemia 2.9. Lactate was elevated at 3.1. LFTs and troponin were negative. Lipase was normal. UA with small amount of leuks but no white cells. Not consistent with UTI. Ultrasound of the pelvis was fairly unremarkable. CT abdomen pelvis shows some perirectal stranding of uncertain etiology. Pelvic was extremely difficult but did show what appeared to be a suture with a small amount of green drainage. Patient was covered with IV fluids and IV Zosyn. Discussed with the hospitalist for admission as she was febrile earlier today at one 1.5 and combination with an elevated lactate and a leukocytosis although this is improving from previous visit. Triage Nursing notes reviewed. Prior medical records reviewed Vital Signs: reviewed and remarkable for Hypertension Differential diagnosis: Differential diagnosis includes etiologies such as sepsis, UTI, pneumonia, metabolic, electrolyte abnormalities, cardiac sources, intracerebral event, toxicologic, neurological, as well as others were entertained. ER treatment provided: See below Diagnostics interpreted by me: ECG: Sinus rhythm rate of 75 Normal axis Poor baseline Normal QTC No PVCs Cardiac Monitoring: An order was placed for continuous cardiac monitoring. The monitor shows a rate of 91 with sinus rhythm. Laboratory studies: As stated above and show below. Imaging studies: CT abdomen pelvis shows some stranding around the perirectal area but no other acute pathology. Pelvic ultrasound was limited and fairly unremarkable Consultation(s): Dr. Quincy Ricci and Dr. Omar Matos ED COURSE: Procedures: none Critical Care: None Past Med/Surg History Medical History (Updated 10/23/19 @ 15:37 by Omar Matos) Dementia DM w/o complication type II Glaucoma History of carotid stenosis History of fibrocystic disease of breast HTN (hypertension) Hyperlipidemia Osteopenia Retained vaginal foreign body (Acute) Vaginal hemorrhage (Acute) Surgical History (Updated 10/23/19 @ 15:34 by Omar Matos) H/O bilateral breast reduction surgery History of tonsillectomy and adenoidectomy Hx of cataract removal with insertion of prosthetic lens Family History (Updated 10/23/19 @ 15:34 by Omar Matos) Mother Hypertension Stroke Father Stroke Brother Diabetes Social History (Updated 10/23/19 @ 15:35 by Omar Matos) Preferred Language: Wolof Communication Ability: Effective Surgical Services Tech Required: No Beliefs That Will Affect Care: None marital status: Current Living Situation: Personal Care Facility Current Living Situation Comment: [facility] Feels Safe at Home: Yes Smoking Status: Never smoker Second Hand Exposure: No ; Hx Alcohol Use: No Hx Substance Use: No Allergies Allergies Allergy/AdvReac Type Severity Reaction Status Date / Time No Known Allergies Allergy Verified 10/23/19 10:45 Home Meds Home Medications Medication Instructions Recorded Confirmed acetaminophen 650 mg PO Q4H PRN MDD 3 GMS 09/30/19 10/23/19 APAP/24 HOURS atorvastatin 40 mg PO QAM 09/30/19 10/23/19 donepezil 10 mg PO QAM 09/30/19 10/23/19 famotidine 20 mg PO BID 09/30/19 10/23/19 potassium chloride 10 meq PO DAILY 09/30/19 10/23/19 escitalopram oxalate [Lexapro] 20 mg PO QAM 10/16/19 10/23/19 aspirin 81 mg PO DAILY 10/23/19 10/23/19 benazepril 40 mg PO QAM 10/23/19 10/23/19 bimatoprost [Lumigan] 1 drp OPL PM 10/23/19 10/23/19 calcium carbonate-vitamin D3 1 tab PO TID 10/23/19 10/23/19 [Calcium 600 + D(3)] hydrochlorothiazide 25 mg PO QAM 10/23/19 10/23/19 magnesium gluconate 250 mg PO BID 10/23/19 10/23/19 metformin [Glucophage XR] 500 mg PO TID 10/23/19 10/23/19 timolol [Betimol] 1 drp OPHTHALMIC (EYE) BID 10/23/19 10/23/19 Results & Data (ED) Vital Signs Vital Signs - 24 hr 10/23/19 09:48 10/23/19 09:56 10/23/19 10:00 Temperature Temperature Source Pulse Rate 76 80 74 Pulse Rate [Left] Pulse Rate from SpO2 Sensor 76 76 Respiratory Rate 12 19 13 Respiratory Effort / Characteristics Respiratory Depth Respiratory Pattern Blood Pressure 146/59 H Blood Pressure [Right Arm] Blood Pressure Mean 104 Blood Pressure Mean [Right Arm] Blood Pressure Position Blood Pressure Position [Right Arm] Pulse Oximetry 99 96 Oxygen Delivery Method Sepsis Recent Fever Within 48 Hours Sepsis New/Unexplained Change in Mental Status Sepsis Action Taken by Nursing 10/23/19 10:02 10/23/19 10:04 10/23/19 10:10 Temperature 36.9 C Temperature Source Oral Pulse Rate 77 78 Pulse Rate [Left] Pulse Rate from SpO2 Sensor 77 Respiratory Rate 18 17 Respiratory Effort / Characteristics Non-Labored Spontaneous Respiratory Depth Normal Respiratory Pattern Regular Blood Pressure 146/59 H Blood Pressure [Right Arm] Blood Pressure Mean 88 Blood Pressure Mean [Right Arm] Blood Pressure Position Lying Blood Pressure Position [Right Arm] Pulse Oximetry 99 99 100 Oxygen Delivery Method Room Air Room Air Sepsis Recent Fever Within 48 Hours Yes Sepsis New/Unexplained Change in Mental Status No Sepsis Action Taken by Nursing No Action Required 10/23/19 10:20 10/23/19 10:33 10/23/19 10:40 Temperature Temperature Source Pulse Rate 79 93 H 85 Pulse Rate [Left] Pulse Rate from SpO2 Sensor 81 Respiratory Rate 16 17 16 Respiratory Effort / Characteristics Respiratory Depth Respiratory Pattern Blood Pressure Blood Pressure [Right Arm] Blood Pressure Mean Blood Pressure Mean [Right Arm] Blood Pressure Position Blood Pressure Position [Right Arm] Pulse Oximetry 96 Oxygen Delivery Method Sepsis Recent Fever Within 48 Hours Sepsis New/Unexplained Change in Mental Status Sepsis Action Taken by Nursing 10/23/19 10:45 10/23/19 12:34 10/23/19 13:01 Temperature Temperature Source Pulse Rate 78 94 H Pulse Rate [Left] 70 Pulse Rate from SpO2 Sensor 79 Respiratory Rate 15 16 18 Respiratory Effort / Characteristics Non-Labored Spontaneous Respiratory Depth Respiratory Pattern Blood Pressure 146/60 H 113/67 Blood Pressure [Right Arm] 137/44 L Blood Pressure Mean 93 71 Blood Pressure Mean [Right Arm] 75 Blood Pressure Position Blood Pressure Position [Right Arm] Lying Pulse Oximetry 97 99 99 Oxygen Delivery Method Room Air Room Air Sepsis Recent Fever Within 48 Hours Sepsis New/Unexplained Change in Mental Status Sepsis Action Taken by Nursing 10/23/19 13:02 10/23/19 13:30 10/23/19 13:31 Temperature Temperature Source Pulse Rate 80 94 H 78 Pulse Rate [Left] Pulse Rate from SpO2 Sensor Respiratory Rate 15 23 20 Respiratory Effort / Characteristics Respiratory Depth Respiratory Pattern Blood Pressure 145/81 H Blood Pressure [Right Arm] Blood Pressure Mean 124 Blood Pressure Mean [Right Arm] Blood Pressure Position Blood Pressure Position [Right Arm] Pulse Oximetry Oxygen Delivery Method Sepsis Recent Fever Within 48 Hours Sepsis New/Unexplained Change in Mental Status Sepsis Action Taken by Nursing 10/23/19 14:00 10/23/19 14:03 10/23/19 14:30 Temperature Temperature Source Pulse Rate 68 75 Pulse Rate [Left] 73 Pulse Rate from SpO2 Sensor 69 Respiratory Rate 20 20 23 Respiratory Effort / Characteristics Non-Labored Spontaneous Respiratory Depth Normal Respiratory Pattern Regular Blood Pressure 133/82 144/63 H Blood Pressure [Right Arm] 133/82 Blood Pressure Mean 94 91 Blood Pressure Mean [Right Arm] 99 Blood Pressure Position Blood Pressure Position [Right Arm] Pulse Oximetry 100 100 Oxygen Delivery Method Room Air Sepsis Recent Fever Within 48 Hours Sepsis New/Unexplained Change in Mental Status Sepsis Action Taken by Nursing 10/23/19 15:02 Temperature Temperature Source Pulse Rate 98 H Pulse Rate [Left] Pulse Rate from SpO2 Sensor Respiratory Rate 33 H Respiratory Effort / Characteristics Respiratory Depth Respiratory Pattern Blood Pressure 157/91 H Blood Pressure [Right Arm] Blood Pressure Mean 121 Blood Pressure Mean [Right Arm] Blood Pressure Position Blood Pressure Position [Right Arm] Pulse Oximetry 97 Oxygen Delivery Method Room Air Sepsis Recent Fever Within 48 Hours Sepsis New/Unexplained Change in Mental Status Sepsis Action Taken by Nursing Laboratory Data Result diagrams: 10/23/19 10:40 10/23/19 10:40 Lab Results 10/23/19 10/23/19 10/23/19 Range/Units 10:00 10:40 10:40 WBC 16.73 H (4.8-10.8) K/uL RBC 3.18 L (4.2-5.4) M/uL Hgb 9.6 L (12.0-16.0) g/dL Hct 28.3 L (37-47) % MCV 89.0 (80-100) fL MCH 30.2 (25-34) pg MCHC 33.9 (32-36) g/dL RDW Std Deviation 46.6 H (36.4-46.3) fL RDW Coeff of Anyi 14.4 (11.5-14.5) % Plt Count 237 (130-400) K/uL MPV 10.1 (7.4-10.4) fL Immature Gran % (Auto) 0.4 % Neut % (Auto) 75.0 % Lymph % (Auto) 13.9 % [place] % (Auto) 8.2 % Eos % (Auto) 2.3 % Baso % (Auto) 0.2 % Immature Gran # (Auto) 0.07 H (0.00-0.02) K/uL Neut # (Auto) 12.54 H (1.4-6.5) K/uL Lymph # (Auto) 2.33 (1.2-3.4) K/uL [place] # (Auto) 1.38 H (0.11-0.59) K/uL Eos # (Auto) 0.38 (0-0.5) K/uL Baso # (Auto) 0.03 (0-0.2) K/uL Absolute Nucleated RBC 0.00 (0-0) K/uL Nucleated RBC % (auto) 0.0 % Sodium 135 L (136-145) mmol/L Potassium 2.9 L (3.5-5.1) mmol/L Chloride 105 (98-107) mmol/L Carbon Dioxide 26 (21-32) mmol/L Anion Gap 4.0 (3-11) BUN 13 (7-18) mg/dl Creatinine 0.81 (0.6-1.2) mg/dl Est Cr Clr Drug Dosing Not Reportable Est GFR ( Amer) 76.2 Est GFR (Non-Af Amer) 65.8 BUN/Creatinine Ratio 16.3 (10-20) Glucose 103 H (70-99) mg/dl Lactate (0.4-2.0) mmol/L Calcium 8.6 (8.5-10.1) mg/dl Magnesium (1.8-2.4) mg/dl Total Bilirubin 1.7 H (0.2-1) mg/dl AST 15 (15-37) U/L ALT 21 (12-78) U/L Alkaline Phosphatase 73 (45-117) U/L Troponin I (0-0.045) ng/ml C-Reactive Protein (0-0.29) mg/dl Total Protein 6.7 (6.4-8.2) gm/dl Albumin 3.0 L (3.4-5.0) gm/dl Globulin 3.7 (2.5-4.0) gm/dl Albumin/Globulin Ratio 0.8 L (0.9-2) Lipase 244 (73-393) U/L Urine Color Yellow Urine Appearance Clear (Clear) Urine pH 6.5 (4.5-7.5) Ur Specific [place] 1.013 (1.000-1.030) Urine Protein Negative (Negative) Urine Glucose (UA) Negative (Negative) Urine Ketones Negative (Negative) Urine Blood Trace H (Negative) Urine Nitrite Negative (Negative) Urine Bilirubin Negative (Negative) Urine Urobilinogen Negative (Negative) Ur Leukocyte Esterase Trace H (Negative) Urine WBC (Auto) 1-5 (0-5) /hpf Urine RBC (Auto) 5-10 H (0-4) /hpf U Hyaline Cast (Auto) 1-5 (0-5) /lpf U Epithel Cells (Auto) 10-20 H (0-5) /lpf Urine Bacteria (Auto) Negative (Negative) 10/23/19 10/23/19 10/23/19 Range/Units 10:40 10:40 10:40 WBC (4.8-10.8) K/uL RBC (4.2-5.4) M/uL Hgb (12.0-16.0) g/dL Hct (37-47) % MCV (80-100) fL MCH (25-34) pg MCHC (32-36) g/dL RDW Std Deviation (36.4-46.3) fL RDW Coeff of Anyi (11.5-14.5) % Plt Count (130-400) K/uL MPV (7.4-10.4) fL Immature Gran % (Auto) % Neut % (Auto) % Lymph % (Auto) % [place] % (Auto) % Eos % (Auto) % Baso % (Auto) % Immature Gran # (Auto) (0.00-0.02) K/uL Neut # (Auto) (1.4-6.5) K/uL Lymph # (Auto) (1.2-3.4) K/uL [place] # (Auto) (0.11-0.59) K/uL Eos # (Auto) (0-0.5) K/uL Baso # (Auto) (0-0.2) K/uL Absolute Nucleated RBC (0-0) K/uL Nucleated RBC % (auto) % Sodium (136-145) mmol/L Potassium (3.5-5.1) mmol/L Chloride (98-107) mmol/L Carbon Dioxide (21-32) mmol/L Anion Gap (3-11) BUN (7-18) mg/dl Creatinine (0.6-1.2) mg/dl Est Cr Clr Drug Dosing Est GFR ( Amer) Est GFR (Non-Af Amer) BUN/Creatinine Ratio (10-20) Glucose (70-99) mg/dl Lactate 3.1 H* (0.4-2.0) mmol/L Calcium (8.5-10.1) mg/dl Magnesium 2.1 (1.8-2.4) mg/dl Total Bilirubin (0.2-1) mg/dl AST (15-37) U/L ALT (12-78) U/L Alkaline Phosphatase (45-117) U/L Troponin I < 0.015 (0-0.045) ng/ml C-Reactive Protein 3.11 H (0-0.29) mg/dl Total Protein (6.4-8.2) gm/dl Albumin (3.4-5.0) gm/dl Globulin (2.5-4.0) gm/dl Albumin/Globulin Ratio (0.9-2) Lipase (73-393) U/L Urine Color Urine Appearance (Clear) Urine pH (4.5-7.5) Ur Specific [place] (1.000-1.030) Urine Protein (Negative) Urine Glucose (UA) (Negative) Urine Ketones (Negative) Urine Blood (Negative) Urine Nitrite (Negative) Urine Bilirubin (Negative) Urine Urobilinogen (Negative) Ur Leukocyte Esterase (Negative) Urine WBC (Auto) (0-5) /hpf Urine RBC (Auto) (0-4) /hpf U Hyaline Cast (Auto) (0-5) /lpf U Epithel Cells (Auto) (0-5) /lpf Urine Bacteria (Auto) (Negative) 10/23/19 Range/Units 12:35 WBC (4.8-10.8) K/uL RBC (4.2-5.4) M/uL Hgb (12.0-16.0) g/dL Hct (37-47) % MCV (80-100) fL MCH (25-34) pg MCHC (32-36) g/dL RDW Std Deviation (36.4-46.3) fL RDW Coeff of Anyi (11.5-14.5) % Plt Count (130-400) K/uL MPV (7.4-10.4) fL Immature Gran % (Auto) % Neut % (Auto) % Lymph % (Auto) % [place] % (Auto) % Eos % (Auto) % Baso % (Auto) % Immature Gran # (Auto) (0.00-0.02) K/uL Neut # (Auto) (1.4-6.5) K/uL Lymph # (Auto) (1.2-3.4) K/uL [place] # (Auto) (0.11-0.59) K/uL Eos # (Auto) (0-0.5) K/uL Baso # (Auto) (0-0.2) K/uL Absolute Nucleated RBC (0-0) K/uL Nucleated RBC % (auto) % Sodium (136-145) mmol/L Potassium (3.5-5.1) mmol/L Chloride (98-107) mmol/L Carbon Dioxide (21-32) mmol/L Anion Gap (3-11) BUN (7-18) mg/dl Creatinine (0.6-1.2) mg/dl Est Cr Clr Drug Dosing Est GFR ( Amer) Est GFR (Non-Af Amer) BUN/Creatinine Ratio (10-20) Glucose (70-99) mg/dl Lactate 1.3 (0.4-2.0) mmol/L Calcium (8.5-10.1) mg/dl Magnesium (1.8-2.4) mg/dl Total Bilirubin (0.2-1) mg/dl AST (15-37) U/L ALT (12-78) U/L Alkaline Phosphatase (45-117) U/L Troponin I (0-0.045) ng/ml C-Reactive Protein (0-0.29) mg/dl Total Protein (6.4-8.2) gm/dl Albumin (3.4-5.0) gm/dl Globulin (2.5-4.0) gm/dl Albumin/Globulin Ratio (0.9-2) Lipase (73-393) U/L Urine Color Urine Appearance (Clear) Urine pH (4.5-7.5) Ur Specific [place] (1.000-1.030) Urine Protein (Negative) Urine Glucose (UA) (Negative) Urine Ketones (Negative) Urine Blood (Negative) Urine Nitrite (Negative) Urine Bilirubin (Negative) Urine Urobilinogen (Negative) Ur Leukocyte Esterase (Negative) Urine WBC (Auto) (0-5) /hpf Urine RBC (Auto) (0-4) /hpf U Hyaline Cast (Auto) (0-5) /lpf U Epithel Cells (Auto) (0-5) /lpf Urine Bacteria (Auto) (Negative) Administered Medications Ioversol (Optiray 320 100ml) 93 ml IV ONCE PRN PRN Reason: Interaction Checking Stop: 10/27/19 12:11 Last Admin: 10/23/19 12:12 Dose: 93 ml Documented by: [id number] Discontinued Medications Sodium Chloride (Nss 1000ml) 1,000 mls @ 999 mls/hr IV .Q1H1M ONE Stop: 10/23/19 10:55 Last Infusion: 10/23/19 12:12 Dose: 0 mls/hr Documented by: [id number] Admin: 10/23/19 10:51 Dose: 999 mls/hr Documented by: [id number] Potassium Chloride (K Nabeel / Wtr) 10 meq in 100 mls @ 100 mls/hr IV Q1H CHRISTINE Stop: 10/23/19 13:44 Last Infusion: 10/23/19 15:00 Dose: 0 mls/hr Documented by: [id number] Admin: 10/23/19 14:00 Dose: 100 mls/hr Documented by: [id number] Infusion: 10/23/19 13:59 Dose: 0 mls/hr Documented by: [id number] Admin: 10/23/19 12:33 Dose: 100 mls/hr Documented by: [id number] Piperacillin Sod/Tazobactam Sod (Zosyn) 4.5 gm in 120 mls @ 240 mls/hr IV NOW ONE Stop: 10/23/19 12:10 Last Infusion: 10/23/19 13:03 Dose: 0 mls/hr Documented by: [id number] Admin: 10/23/19 12:33 Dose: 240 mls/hr Documented by: [id number] Discharge Plan Visit Data Chief Complaint: Confusion Stated Complaint: Vaginal Bleeding ED Provider: Shlomo Baker Discharge Problem: Sepsis, Fever, Elevated lactic acid level, Leukocytosis, Discharge from the vagina Discharge Instructions Interventions: ED Discharge Assessment Last Done: 10/23/19 15:22 Forms Stand Alone Forms: My [facility] [employer] Prescriptions Prescriptions: No Action escitalopram oxalate [Lexapro] 20 mg Tablet 20 mg PO QAM RF: 0 aspirin 81 mg Tablet,Delayed Release (Dr/Ec) 81 mg PO DAILY RF: 0 Betimol 0.25 % Drops 1 drp OPHTHALMIC (EYE) BID RF: 0 hydrochlorothiazide 25 mg Tablet 25 mg PO QAM RF: 0 benazepril 40 mg Tablet 40 mg PO QAM RF: 0 metformin [Glucophage XR] 500 mg Tablet Extended Release 24 Hr 500 mg PO TID RF: 0 magnesium gluconate 27 mg magnesium (500 mg) Tablet 250 mg PO BID RF: 0 calcium carbonate-vitamin D3 [Calcium 600 + D(3)] 600 mg(1,500mg) -400 unit Tablet 1 tab PO TID RF: 0 Lumigan 0.01 % Drops 1 drp OPL PM RF: 0 atorvastatin 40 mg Tablet 40 mg PO QAM RF: 0 acetaminophen 325 mg Tablet 650 mg PO Q4H MDD 3 GMS APAP/24 HOURS PRN (Reason: Fever Or Pain) RF: 0 donepezil 10 mg Tablet 10 mg PO QAM RF: 0 potassium chloride 10 mEq Tablet Extended Release 10 meq PO DAILY RF: 0 famotidine 20 mg Tablet 20 mg PO BID RF: 0 Referrals Referrals: Kamilah kylePort Matilda [Primary Care Provider] -
--- NOTE | 2019-10-23 10:06 | XRay Report ---
XR chest 1V portable CLINICAL HISTORY: 84 years-old Female presenting with fever. TECHNIQUE: Portable upright AP view of the chest was obtained. COMPARISON: None. FINDINGS: Atherosclerosis of the aortic arch. Cardiac silhouette normal in size. Mildly low lung volumes Minima l left basilar opacities. No pleural effusion or pneumothorax. Degenerative changes of the thoracic s pine. Degenerative changes of the right glenohumeral joint. Upper abdomen normal. IMPRESSION: 1. Mildly low lung volumes with minimal left basilar atelectasis. ACT 112: Negative or not required by law. Electronically signed by: Tray Meek M.D. 10/23/2019 10:04 AM
[2019-10-23 10:13] LABS: Appearance Urine Clear (Clear); Bacteria Urine Automated Negative (Negative); Bilirubin Urine Negative (Negative); Blood Urine Trace (Negative); Color Urine Yellow; Glucose Urine UA Negative (Negative); Ketones Urine Negative (Negative); Leukocyte Esterase Urine Trace (Negative); Nitrite Urine Negative (Negative); Protein Urine Negative (Negative); Specific Gravity Urine 1.013 (1.000-1.030); Urobilinogen Urine Negative (Negative); pH Urine 6.5 (4.5-7.5)
[2019-10-23 11:02] LABS: Basophils # (auto) 0.03 K/uL (0-0.2); Basophils % (auto) 0.2 %; Eosinophils # (auto) 0.38 K/uL (0-0.5); Eosinophils % (auto) 2.3 %; Hematocrit (blood only) 28.3 % (37-47); Hemoglobin 9.6 g/dL (12.0-16.0); Immature Granulocytes # (auto) 0.07 K/uL (0.00-0.02); Immature Granulocytes % (auto) 0.4 %; Lymphocytes # (auto) 2.33 K/uL (1.2-3.4); Lymphocytes % (auto) 13.9 %; Mean Corpuscular Hemoglobin 30.2 pg (25-34); Mean Corpuscular Hgb Conc 33.9 g/dL (32-36); Mean Platelet Volume 10.1 fL (7.4-10.4); Monocytes # (auto) 1.38 K/uL (0.11-0.59); Monocytes % (auto) 8.2 %; Neutrophils # (auto) 12.54 K/uL (1.4-6.5); Platelet Count 237 K/uL (130-400); RDW Coefficient of Variation 14.4 % (11.5-14.5); RDW Standard Deviation 46.6 fL (36.4-46.3); Red Blood Count 3.18 M/uL (4.2-5.4); White Blood Count 16.73 K/uL (4.8-10.8)
[2019-10-23 11:18] LABS: Alanine Aminotransferase 21 U/L (12-78); Aspartate Aminotransferase 15 U/L (15-37); BUN Creatinine Ratio 16.3 (10-20); Blood Urea Nitrogen 13 mg/dl (7-18); Calcium 8.6 mg/dl (8.5-10.1); Carbon Dioxide 26 mmol/L (21-32); Chloride 105 mmol/L (98-107); Est GFR (African American) 76.2; Est GFR (Non-African American) 65.8; Glucose 103 mg/dl (70-99); Lipase 244 U/L (73-393); Potassium 2.9 mmol/L (3.5-5.1); Sodium 135 mmol/L (136-145)
[2019-10-23 11:21] LABS: Albumin Globulin Ratio 0.8 (0.9-2); Alkaline Phosphatase 73 U/L (45-117); Bilirubin,Total 1.7 mg/dl (0.2-1); Globulin 3.7 gm/dl (2.5-4.0); Total Protein 6.7 gm/dl (6.4-8.2)
[2019-10-23] MEDS ORDERED: PIPERACILL/TAZOBAC CONSULT ACTIVE PRN (11:41)
[2019-10-23] MEDS ORDERED: PIPERACILLIN/TAZOBACTAM 4.5 GM/120 ML BAG IV ONE (11:41)
[2019-10-23] MEDS ORDERED: IOVERSOL 100ml IV PRN (12:12)
[2019-10-23 12:31] LABS: Magnesium 2.1 mg/dl (1.8-2.4); Troponin I < 0.015 ng/ml (0-0.045)
[2019-10-23] MEDS: POTASSIUM CHLORIDE / WTR 10 MEQ/100 ML PLCT IV SCH ×2 (12:33→14:00)
--- NOTE | 2019-10-23 12:44 | Ultrasound Report ---
PELVIC ULTRASOUND CLINICAL HISTORY: Fever. Recent vaginal intervention. COMPARISON STUDY: Pelvic ultrasound and CT of the pelvis October 16, 2019. TECHNIQUE: Transabdominal and transvaginal sonography of the pelvis was performed. FINDINGS: Uterus measures 5.6 x 2.5 x 2.7 cm. This exam is compromised by suboptimal penetration. The endometrium measures 3 mm in thickness. The ovaries were not visualized. No adnexal mass or free flu id was identified. IMPRESSION: 1. Exam compromised by suboptimal penetration but no significant abnormality of the uterus identified . 2. Nonvisualization of the ovaries. ACT 112: Negative or not required by law. Electronically signed by: Troy Titus M.D. 10/23/2019 12:42 PM
--- NOTE | 2019-10-23 12:56 | CT Scan Report ---
CT abd pelvis IV con only CLINICAL HISTORY: 84 years-old Female presenting with fever recent vag bleed. TECHNIQUE: Multidetector CT of the abdomen and pelvis was performed after the administration of intra venous contrast. IV contrast: 93 mL of Optiray 320. One or more dose lowering techniques were used co nsistent with the principles of ALARA (as low as reasonably achievable), including automatic exposure control, mA or kV adjustment to individual patient size, and/or use of iterative reconstruction. COMPARISON: 10/16/2019. CT DOSE (mGy.cm): The estimated cumulative dose is 769.79 mGycm. FINDINGS: Animal Sitter topogram: Unremarkable. Lung bases: Normal heart size. Coronary artery and aortic valve calcification. Trace left pleural eff usion. Extensive dependent atelectasis at the left lower lobe. Liver: Normal morphology. Hepatic cyst may be present along the anterior left hepatic lobe. Patent [facility] vasculature. Biliary: No intrahepatic or extrahepatic biliary ductal dilatation. Normal gallbladder. Pancreas: Normal. Spleen: Normal. Adrenal glands: 1.3 cm nodule in the left adrenal gland, indeterminate though likely benign adenoma. Right adrenal gland normal. Kidneys and ureters: Normal. No hydronephrosis. Bladder: Normal. Pelvic organs: Uterus and ovaries normal. The vagina is no longer distended with material. The foreig n body has been removed. Trace fluid may be present within the vagina. Bowel: Mild perirectal fat infiltration with an otherwise normal-appearing rectum., Nonspecific. Dive rticulosis of the distal sigmoid colon without wall thickening or pericolonic inflammatory change. Li mited diverticula in the distal descending colon. No bowel obstruction. Peritoneal cavity: No free fluid or intraperitoneal gas. Lymph nodes: No enlarged lymph nodes in the abdomen or pelvis. Vasculature: Extensive calcified atherosclerotic plaque of the normal caliber abdominal aorta. IVC an d pelvic veins grossly patent. Abdominal wall: Small fat-containing umbilical hernia. Musculoskeletal: Degenerative changes of the spine. Severe compression deformity of T12. Lucency in t he L3 vertebral body, indeterminate (series 3 image 169), possibly hemangioma. IMPRESSION: 1. Prior foreign body within the vagina no longer present. The vagina longer distended. Trace fluid in the vagina may represent blood products. 2. Mild nonspecific perirectal fat infiltration. No significant evidence of proctitis. 3. No convincing evidence of acute intra-abdominal pathology on the current exam. 4. Diverticulosis coli. No diverticulitis. 5. Suspected left adrenal adenoma. 6. Severe compression deformity of T12, age indeterminate. Correlate with point tenderness. ACT 112: Negative or not required by law. Electronically signed by: Tray Meek M.D. 10/23/2019 12:55 PM
--- NOTE | 2019-10-23 14:29 | History & Physical Report ---
Date of Service October 23, 2019 Assessment & Plan (1) Fever: source of fever overnight is unknown. she has had a fluctuating WBC count since 10/19 (was 13.6 at [facility] on 10/21, now 16). exam is unremarkable. arianna-rectal stranding seen on CT pelvis but on exam no evidence of proctitis (anterior wall with firmness/?lump but no tenderness or irritation). minimal vaginal discharge on pelvic exam per the ER attending; awaiting [facility] gynecology to give their opinion if there is any infectious process in the region. she has had no COVID-19 exposure (no known cases at [facility]) but has had 3 hospitalizations in the last week which will heighten her COVID risk. thus, in the absence of an obvious infectious source, will send COVID-[address] in airborne isolation for now. send urine cx. send blood cx's. f/u on genital culture taken by ER. while awaiting cultures will empirically treat with cefepime IV and flagyl IV; defer on MRSA coverage for now. repeat CBC in am. (2) Metabolic encephalopathy: suspect due to underlying infectious process. her multiple hospital stays at 2 different hospitals, recent anesthesia/sedation, travel, unfamiliar environments, back/forth to [facility], etc in the setting of mod-severe dementia may also be contributing. treat any underlying infection. avoid sedatives. if needed would start low-dose risperdal for severe agitation but defer for now. recent TSH wnl. (3) Vaginal hemorrhage: See HPI for details of her 3 hospital stays (2 here, 1 at [facility]). NO vaginal bleeding since 10/21/2019. Bleeding was 2nd to a vaginal laceration in the setting of a vaginal foreign body. Vaginal biopsy negative for cancer. (4) Hypokalemia: 2nd to HCTZ +/- poor intake? received IV KCL in ER. give additional 40meq PO K-dur now. repeat BMP am. hold HCTZ. mag level noted to be normal. (5) Retained vaginal foreign body: Recent, s/p removal. See HPI and prior can stacker discharge summaries. (6) DM w/o complication type II: No HbA1C in EMR. On metformin TID at [facility]. Hold metformin. Start novolog - use correction factor 50; carb ratio 1:15. BSGs ac/hs. a1c am. (7) Dementia: mod-severe at baseline per [facility] but typically can walk with walker, feed herself, is continent of urine, etc. Now w/ superimposed encephalopathy. Cont aricept. (8) HTN (hypertension): Hold HCTZ Cont ARSH (9) Hyperlipidemia: hold lipitor as total bili is elevated although I doubt lipitor is causing such (10) Glaucoma: cont home drops (11) Abnormal CT scan, pelvis: arianna-rectal stranding noted on CT pelvis I performed chaperoned ERWIN in ER - no evidence of proctitis, impaction, etc on examination ?anterior wall lump/firmness - uncertain significance of that abnormality - consider GI f/u post-discharge if desired by family (12) Elevated bilirubin: uncertain significance. prior total bili levels have been normal. biliary tract and gall bladder were normal on CT. repeat LFTs in am. if LFTs cont to be abnormal consider dedicated RUQ u/s. (13) Acute blood loss anemia: Hb 13.5 on 10/15. Had copious vaginal bleeding requiring 2 units PRBCs on 10/20. Hb 8.5 on 10/21 at [facility]. Hb today 9.6 - stable, no evidence of ongoing bleeding. Would benefit from Fe supplementation upon discharge. (14) DVT prophylaxis: due to recent vaginal bleeding and acute blood loss anemia from such would defer on chemical means for now. SCDs. If no vaginal bleeding next 1-2 days then restart chemical DVT proph. updated son extensively by phone with plan of care. confirmed DNR status with him. await can stacker consult, COVID testing, culture results. NS with KCL at 100cc/hr at least until tomorrow. History of Present Illness . Chief Complaint: fever, altered mental status Primary Care Provider: [facility] 84yo female with history of HTN, hyperlipidemia, and dementia with 2 recent [facility] admissions for vaginal foreign body and vaginal bleeding. She now presents from [facility] with inability to feed hersel f, difficulty walking, fever of 101.5 degrees at 0400 this am, and altered mental status above & beyond her typical baseline neurocognitive status from the dementia. History dates back to 10/15 when she presented with vaginal bleeding that was 2nd to a foreign body. This was removed under anesthesia in the OR. Bleeding stopped and she had vaginal packing placed. Was d/c back to [facility] on 10/17 after she was observed for recurrent bleeding (had none following the foreign body removal). Unfortunately presented again on 10/19 with vaginal bleeding. On 10/20 she had copious recurrent bleeding requiring urgent PRBC infusion of 2 units, repeat urgent exam under anesthesia, repair of a vaginal laceration, and then ultimately transfer to [facility] on the same date. Records were reviewed from [facility]. She was admitted on 10/20 for observation for any additional vaginal bleeding and had none by way of those records. No documented fever or infectious issues while at [facility]. She was discharged from [facility] on 10/21 back to [facility]. Our records show that a vaginal biopsy a few days ago returned negative for vaginal cancer. I personally spoke with the staff at [facility] and they report that when she returned there yesterday (10/21) she was not at baseline. Apparently she typically walks with a walker and could not do so last evening. She usually feeds herself but last evening for dinner she needed staff to assist her. Further, she was quite confused above her normal dementia baseline. She had a "slight" fall last night per the staff but details are not known but no apparent injury was noted. In the middle of the night she had a documented temp of 101.5 degrees. This am for breakfast - although she ate well (75% by report) - she again needed assistance to eat. Her confusion worsened and thus she was brought to the ER by ambulance. Staff at [facility] state she had NO vaginal bleeding overnight or this am. No vomiting, diarrhea, or cough although staff noted she was "mouth breathing" which is unusual for her. No [facility] residents have tested + for COVID-19. Last bowel movement by history was 10/21 at [facility] in the am. During my admission assessment the patient could not provide any meaningful history or answer my questions. Her speech was difficult to understand. She did cough several times during my visit. ER attending performed pelvic exam and this showed a minimal amount of green vaginal discharge but no bleeding. Allergies Allergy/AdvReac Type Severity Reaction Status Date / Time No Known Allergies Allergy Verified 10/23/19 10:45 Home Medications Home Medications Medication Instructions Recorded Confirmed Type acetaminophen 650 mg PO Q4H PRN MDD 3 GMS 09/30/19 10/23/19 History APAP/24 HOURS atorvastatin 40 mg PO QAM 09/30/19 10/23/19 History donepezil 10 mg PO QAM 09/30/19 10/23/19 History famotidine 20 mg PO BID 09/30/19 10/23/19 History potassium chloride 10 meq PO DAILY 09/30/19 10/23/19 History escitalopram oxalate [Lexapro] 20 mg PO QAM 10/16/19 10/23/19 History aspirin 81 mg PO DAILY 10/23/19 10/23/19 History benazepril 40 mg PO QAM 10/23/19 10/23/19 History bimatoprost [Lumigan] 1 drp OPL PM 10/23/19 10/23/19 History calcium carbonate-vitamin D3 1 tab PO TID 10/23/19 10/23/19 History [Calcium 600 + D(3)] hydrochlorothiazide 25 mg PO QAM 10/23/19 10/23/19 History magnesium gluconate 250 mg PO BID 10/23/19 10/23/19 History metformin [Glucophage XR] 500 mg PO TID 10/23/19 10/23/19 History timolol [Betimol] 1 drp OPHTHALMIC (EYE) BID 10/23/19 10/23/19 History Past Med/Surg History Medical History (Updated 10/23/19 @ 17:57 by Omar Matos) Dementia DM w/o complication type II Glaucoma History of carotid stenosis History of fibrocystic disease of breast HTN (hypertension) Hyperlipidemia Osteopenia Retained vaginal foreign body (Acute) Vaginal hemorrhage (Acute) Surgical History (Updated 10/23/19 @ 15:34 by Omar Matos) H/O bilateral breast reduction surgery History of tonsillectomy and adenoidectomy Hx of cataract removal with insertion of prosthetic lens Family History (Updated 10/23/19 @ 15:34 by Omar Matos) Mother Hypertension Stroke Father Stroke Brother Diabetes Social History (Updated 10/23/19 @ 15:35 by Omar Matos) Preferred Language: Ghanaian Communication Ability: Effective Certified Emergency Vehicle Technician Required: No Beliefs That Will Affect Care: None marital status: Current Living Situation: [facility] Current Living Situation Comment: [facility] Other Information That Helps Us Care for You: No Feels Safe at Home: Yes Safety Concerns: Feels Safe At This Time Smoking Status: Unknown if ever smoked Hx Alcohol Use: No Hx Substance Use: No Review of Systems Review of Systems: Unobtainable due to cognitive status Physical Exam Constitutional: + altered mental status and + frail appearing Eyes: PERRL (lens implants b/l ) ENMT: Mouth: + dry oral mucous membranes Neck: trachea midline, no thyromegaly Respiratory: normal respiratory effort, lungs clear to auscultation Cardiovascular: Rate/Rhythm: regular rate and regular rhythm Heart Sounds: normal S1 and normal S2; no murmur Vessels: posterior tibial pulses present and dorsalis pedis pulses present; no JVD Extremities: no edema Gastrointestinal (Abdomen): normal bowel sounds, soft, nontender, no hepatosplenomegaly rectal exam - no impaction; no gross blood; no tender ness/pain; ?firmness/small mass anterior wall? Musculoskeletal: no cyanosis or clubbing, extremities motor strength 5/5 no synovitis of any small/large joint; no pain with passive ROM of either hip; no deformities Skin: ecchymoses on left lateral thigh Neurologic: deep tendon reflexes 2+ bilaterally and moves all extremities Psychiatric: Orientation: alert and oriented to person; + not oriented to place and + not oriented to time Genitourinary: deferred Lymphatic: no cervical lymphadenopathy Results & Data Results & Data ([facility]) Vital Signs (Past 12 Hours) Vital Signs Temp Pulse Pulse Resp BP BP Pulse Ox 10/23/19 14:03 73 20 133/82 100 10/23/19 14:00 68 20 133/82 100 10/23/19 13:31 78 20 145/81 H 10/23/19 13:30 94 H 23 10/23/19 13:02 80 15 10/23/19 13:01 94 H 18 113/67 99 10/23/19 12:34 70 16 137/44 L 99 10/23/19 10:45 78 15 146/60 H 97 10/23/19 10:40 85 16 10/23/19 10:33 93 H 17 10/23/19 10:20 79 16 96 10/23/19 10:10 78 17 100 10/23/19 10:04 36.9 C 77 18 146/59 H 99 10/23/19 10:02 99 10/23/19 10:00 74 13 10/23/19 09:56 80 19 96 10/23/19 09:48 76 12 146/59 H 99 Laboratory Results Laboratory Results - last 24 hr 10/23/19 10/23/19 10/23/19 10:00 10:40 10:40 WBC 16.73 H RBC 3.18 L Hgb 9.6 L Hct 28.3 L MCV 89.0 MCH 30.2 MCHC 33.9 RDW Std Deviation 46.6 H RDW Coeff of Anyi 14.4 Plt Count 237 MPV 10.1 Immature Gran % (Auto) 0.4 Neut % (Auto) 75.0 Lymph % (Auto) 13.9 Jessamine % (Auto) 8.2 Eos % (Auto) 2.3 Baso % (Auto) 0.2 Immature Gran # (Auto) 0.07 H Neut # (Auto) 12.54 H Lymph # (Auto) 2.33 Jessamine # (Auto) 1.38 H Eos # (Auto) 0.38 Baso # (Auto) 0.03 Absolute Nucleated RBC 0.00 Nucleated RBC % (auto) 0.0 Sodium 135 L Potassium 2.9 L Chloride 105 Carbon Dioxide 26 Anion Gap 4.0 BUN 13 Creatinine 0.81 Est Cr Clr Drug Dosing Not Reportable Est GFR ( Amer) 76.2 Est GFR (Non-Af Amer) 65.8 BUN/Creatinine Ratio 16.3 Glucose 103 H Lactate Calcium 8.6 Magnesium Total Bilirubin 1.7 H AST 15 ALT 21 Alkaline Phosphatase 73 Troponin I C-Reactive Protein Total Protein 6.7 Albumin 3.0 L Globulin 3.7 Albumin/Globulin Ratio 0.8 L Lipase 244 Procalcitonin Urine Color Yellow Urine Appearance Clear Urine pH 6.5 Ur Specific Beverly 1.013 Urine Protein Negative Urine Glucose (UA) Negative Urine Ketones Negative Urine Blood Trace H Urine Nitrite Negative Urine Bilirubin Negative Urine Urobilinogen Negative Ur Leukocyte Esterase Trace H Urine WBC (Auto) 1-5 Urine RBC (Auto) 5-10 H U Hyaline Cast (Auto) 1-5 U Epithel Cells (Auto) 10-20 H Urine Bacteria (Auto) Negative SARS-CoV-2 RNA (RT-PCR) 10/23/19 10/23/19 10/23/19 10:40 10:40 10:40 WBC RBC Hgb Hct MCV MCH MCHC RDW Std Deviation RDW Coeff of Anyi Plt Count MPV Immature Gran % (Auto) Neut % (Auto) Lymph % (Auto) Jessamine % (Auto) Eos % (Auto) Baso % (Auto) Immature Gran # (Auto) Neut # (Auto) Lymph # (Auto) Jessamine # (Auto) Eos # (Auto) Baso # (Auto) Absolute Nucleated RBC Nucleated RBC % (auto) Sodium Potassium Chloride Carbon Dioxide Anion Gap BUN Creatinine Est Cr Clr Drug Dosing Est GFR ( Amer) Est GFR (Non-Af Amer) BUN/Creatinine Ratio Glucose Lactate 3.1 H* Calcium Magnesium 2.1 Total Bilirubin AST ALT Alkaline Phosphatase Troponin I < 0.015 C-Reactive Protein Pending Total Protein Albumin Globulin Albumin/Globulin Ratio Lipase Procalcitonin Urine Color Urine Appearance Urine pH Ur Specific Beverly Urine Protein Urine Glucose (UA) Urine Ketones Urine Blood Urine Nitrite Urine Bilirubin Urine Urobilinogen Ur Leukocyte Esterase Urine WBC (Auto) Urine RBC (Auto) U Hyaline Cast (Auto) U Epithel Cells (Auto) Urine Bacteria (Auto) SARS-CoV-2 RNA (RT-PCR) 10/23/19 10/23/19 10/23/19 10:40 12:35 15:05 WBC RBC Hgb Hct MCV MCH MCHC RDW Std Deviation RDW Coeff of Anyi Plt Count MPV Immature Gran % (Auto) Neut % (Auto) Lymph % (Auto) Jessamine % (Auto) Eos % (Auto) Baso % (Auto) Immature Gran # (Auto) Neut # (Auto) Lymph # (Auto) Jessamine # (Auto) Eos # (Auto) Baso # (Auto) Absolute Nucleated RBC Nucleated RBC % (auto) Sodium Potassium Chloride Carbon Dioxide Anion Gap BUN Creatinine Est Cr Clr Drug Dosing Est GFR ( Amer) Est GFR (Non-Af Amer) BUN/Creatinine Ratio Glucose Lactate 1.3 Calcium Magnesium Total Bilirubin AST ALT Alkaline Phosphatase Troponin I C-Reactive Protein Total Protein Albumin Globulin Albumin/Globulin Ratio Lipase Procalcitonin Pending Urine Color Urine Appearance Urine pH Ur Specific Beverly Urine Protein Urine Glucose (UA) Urine Ketones Urine Blood Urine Nitrite Urine Bilirubin Urine Urobilinogen Ur Leukocyte Esterase Urine WBC (Auto) Urine RBC (Auto) U Hyaline Cast (Auto) U Epithel Cells (Auto) Urine Bacteria (Auto) SARS-CoV-2 RNA (RT-PCR) Pending Diagnostic Findings CT abd/pelvis - IMPRESSION: 1. Prior foreign body within the vagina no longer present. The vagina longer distended. Trace fluid in the vagina may represent blood products. 2. Mild nonspecific perirectal fat infiltration. No significant evidence of proctitis. 3. No convincing evidence of acute intra-abdominal pathology on the current exam. 4. Diverticulosis coli. No diverticulitis. 5. Suspected left adrenal adenoma. 6. Severe compression deformity of T12, age indeterminate. Correlate with point tenderness. cxr - atelectasis left base, low lung volumes Code Status & VTE Plan Code Status DNR/DNI per son who is POA VTE Prophylaxis Plan VTE Prophylaxis will be ordered: No PG Care Time/CCT Total # of Minutes Spent Total Time Spent with Patient: Total time spent is greater than 50% in coordination of care (as documented) at patient's floor/unit and/or counseling patient: Coding Level of Care Code 33381 Initial Inpt Care Lvl 3 Diagnoses Fever R50.9 Fever type: unspecified Metabolic encephalopathy G93.41 Vaginal hemorrhage N93.9 Hypokalemia E87.6 Retained vaginal foreign body T19.2XXA Encounter type: initial encounter DM w/o complication type II E11.9 Dementia F03.90 HTN (hypertension) I10 Hyperlipidemia E78.[address] scan, pelvis R93.5 Elevated bilirubin R17 Acute blood loss anemia D62 DVT prophylaxis Z29.9 (1) Retained vaginal foreign body Encounter type: initial encounter Qualified Code(s): T19.2XXA - Foreign body in vulva and vagina, initial encounter (2) Fever Fever type: unspecified Qualified Code(s): R50.9 - Fever, unspecified
[2019-10-23] MEDS ORDERED: POTASSIUM CHLORIDE 20 MEQ TABCR PO STA (15:26)
--- NOTE | 2019-10-23 15:28 | Electrocardiogram Report ---
Test Reason : Blood Pressure : / mmHG Vent. Rate : 075 BPM Atrial Rate : 075 BPM P-R Int : 144 ms QRS Dur : 070 ms QT Int : 350 ms P-R-T Axes : 034 017 034 degrees QTc Int : 390 ms Normal sinus rhythm Nonspecific ST abnormality Abnormal ECG No previous ECGs available Confirmed by Keenan Head ([id number]) on 10/23/2019 3:27:49 PM Referred By: [facility] Confirmed By:Ronny Head
[2019-10-23] MEDS ORDERED: ACETAMINOPHEN 325 MG TAB PO PRN (16:11)
[2019-10-23] MEDS ORDERED: PNEUMOCOCCAL ADMINISTRATION CHARGE ONE (16:23)
[2019-10-23] MEDS ORDERED: PNEUMOCOCCAL POLYSACCHARIDES 25 MCG/0.5 ML VIAL/SYR IM ONE (16:23)
[2019-10-23] MEDS ORDERED: INFLUENZA VACCINE HIGH DOSE 65+ 0.5 ML SYR IM ONE (16:23)
[2019-10-23] MEDS ORDERED: INFLUENZA ADMINISTRATION CHARGE ONE (16:23)
[2019-10-23] MEDS ORDERED: GLUCOSE 40% GEL 15 GM TUBE PO PRN (16:30)
[2019-10-23] MEDS ORDERED: CARBOHYDRATES FOR HYPOGLYCEMIA PO PRN (16:30)
[2019-10-23] MEDS ORDERED: GLUCOSE 10 TABS/TUBE PO PRN (16:30)
[2019-10-23] MEDS ORDERED: DEXTROSE 50% 50 ML SYRINGE IV PRN (16:30)
[2019-10-23] MEDS ORDERED: GLUCAGON FOR INJ 1 MG VIAL IM PRN (16:30)
[2019-10-23] MEDS: metroNIDAZOLE 500 MG/100 ML BAG IV SCH ×2 (17:40→23:32)
[2019-10-23] MEDS: NSS + 20MEQ KCL 20 MEQ/1,000 ML BAG IV SCH (18:39)
[2019-10-23] MEDS: INSULIN ASPART 100 UNITS/ML 3 ML PEN SC SCH ×2 (18:41→22:32)
[2019-10-23] MEDS: LACTOBACILLUS ACIDOPHILUS (FLORANEX) TAB PO SCH (18:43)
[2019-10-23] MEDS: CEFEPIME 2,000 MG in SYRINGE 7.5 ML IV SCH (20:44)
[2019-10-23] MEDS: CALCIUM 600MG + VIT D 400 IU TAB PO SCH (20:47)
[2019-10-23] MEDS: BIMATOPROST 0.01% OP SOLN 2.5 ML BTL OPL SCH (20:48)
[2019-10-23] MEDS: TIMOLOL MALEATE 0.25% OP SOLN 5 ML BTL OP SCH (20:48)
[2019-10-23] MEDS ORDERED: FAMOTIDINE 20 MG TAB PO SCH (21:00)
[2019-10-23] MEDS ORDERED: CALCIUM 600MG + VIT D 400 IU TAB PO SCH (21:00)
--- NOTE | 2019-10-23 23:40 | Consultation Report ---
DATE OF CONSULTATION: 10/23/2019 Consult is ordered by Dr. Matos. HISTORY OF PRESENT ILLNESS: This is an 84-year-old white female who has been admitted at [facility] twice within the last week. The patient was first admitted on 10/16/2019 for vaginal bleeding. The patient lives in [facility]. She has history of dementia and presented on 10/16/2019 with vaginal bleeding. She was seen by Dr. Correia who upon evaluation took her to the Emergency Room and remove the foreign body. Her bleeding was controlled with packing. She was discharged home on 10/17/2019 in stable condition. The patient returned to the hospital on 10/20/2019 with another episode of vaginal bleeding and was seen by Dr. Gallardo. The patient had severe bleeding and was taken to the operating room to control her bleeding. On that evaluation, there was concern of vaginal pathology suggesting vaginal cancer. Biopsies were taken, biopsies; however, came back negative for dysplasia. The patient after the surgery was transferred to [facility] in [place] where she was observed for 24 hours. Her bleeding improved and was discharged home on 10/22/2019. Today at her residence she was found to have a fever of 101.5. She was then brought to the Emergency Room at [facility]. In the Emergency Room, she was seen and evaluated for fever. She has had no bleeding; however. She was seen by Emergency Room physician who was able to do a pelvic exam. Pelvic exam showed a greenish yellow discharge, but there was no foreign body or active bleeding in the vagina. The ER doctor documented that he could see sutures in the vagina from the surgery performed on 10/20/2019. The patient is being admitted and being worked up by internal medicine for fever. I spoke to Dr. Matos who wanted me to see the patient and make sure she did not require any further MACHINE INSTALLER evaluation or treatment. I have seen the patient again, as stated above, she has a history of dementia. She is alert, awake and I am able to communicate with her. She does not remember a lot of episodes that have gone in the last week. She, however, is unable to tolerate another pelvic exam. At this moment, she is not bleeding, so pelvic exam will be deferred. PAST MEDICAL HISTORY: As stated above. The patient has history of dementia. PAST SURGICAL HISTORY: Unknown. SOCIAL HISTORY: The patient lives in [facility]. FAMILY HISTORY: Unknown. PHYSICAL EXAMINATION: GENERAL: The patient is alert and awake and pleasant. She does not appear agitated. HEART: S1, S2, regular rhythm and rate. LUNGS: Clear to auscultation. PELVIC: Deferred. As stated in the HPI, the patient was examined by the ER physician, there was no packing in the vagina. She does have some colorful discharge, which will be consistent with the surgery, which was done on 10/20/2019. There was bleeding at that time, so FloSeal I believe was used to obtain hemostasis, that has a tendency to keep that colorful discharge appearance. EXTREMITIES: No cyanosis, clubbing or edema. CT Scan; No foreign body in vagina and otherwise unremarkable ASSESSMENT AND PLAN: An 84-year-old with history of vaginal bleeding who has been admitted twice at [facility]. She was sent to [facility] for evaluation of a vaginal bleeding and was discharged home yesterday. The patient today is seen in the ER for fever. Internal medicine is going to work the patient up for her fever. Her fever workup includes coronavirus disease evaluation and workup. The patient is presently in isolation in coronavirus disease room. As far as MACHINE INSTALLER is concerned, at this moment, there was really nothing to be done from a MACHINE INSTALLER standpoint. She has had 2 vaginal exams which could only be done adequately under anesthesia and her last vaginal exam which included a vaginal biopsies obtained to be negative for vaginal cancer or any significant pathology. CT scan done in the ER today is unremarkable for pelvic .The patient was examined today by ER physician and no additional pelvic information was obtained.Please do not hesitate to reconsult MACHINE INSTALLER if you need any further assistance or if there is anything else we can do to help for the care of this patient. MANAV
[2019-10-23] MEDS ORDERED: HALOPERIDOL LACTATE 5 MG/ML 1 ML VIAL IM STA (23:48)
[2019-10-23] MEDS ORDERED: HALOPERIDOL LACTATE 5 MG/ML 1 ML VIAL ONE (23:50)
[2019-10-24] MEDS ORDERED: VANCOMYCIN CONSULT ACTIVE PRN ×2 (00:10)
[2019-10-24] MEDS ORDERED: VANCOMYCIN HCL 1,500 MG in SODIUM CHLORIDE 0.9% 500 ML IV ONE (00:28)
[2019-10-24 06:50] LABS: Basophils # (auto) 0.02 K/uL (0-0.2); Basophils % (auto) 0.2 %; Eosinophils # (auto) 0.36 K/uL (0-0.5); Hematocrit (blood only) 26.3 % (37-47); Hemoglobin 8.7 g/dL (12.0-16.0); Immature Granulocytes # (auto) 0.03 K/uL (0.00-0.02); Immature Granulocytes % (auto) 0.3 %; Lymphocytes # (auto) 1.37 K/uL (1.2-3.4); Lymphocytes % (auto) 15.2 %; Mean Corpuscular Hemoglobin 29.2 pg (25-34); Mean Corpuscular Hgb Conc 33.1 g/dL (32-36); Mean Corpuscular Volume 88.3 fL (80-100); Mean Platelet Volume 10.2 fL (7.4-10.4); Monocytes # (auto) 0.58 K/uL (0.11-0.59); Monocytes % (auto) 6.4 %; Neutrophils # (auto) 6.65 K/uL (1.4-6.5); Neutrophils % (auto) 73.9 %; Platelet Count 232 K/uL (130-400); RDW Coefficient of Variation 14.5 % (11.5-14.5); RDW Standard Deviation 46.1 fL (36.4-46.3); Red Blood Count 2.98 M/uL (4.2-5.4); White Blood Count 9.01 K/uL (4.8-10.8)
[2019-10-24 07:18] LABS: Albumin Level 2.7 gm/dl (3.4-5.0); BUN Creatinine Ratio 12.5 (10-20); Calcium 8.1 mg/dl (8.5-10.1); Creatinine Clr Calc Pharmacy 65.5 ml/min; Est GFR (African American) 100.9; Est GFR (Non-African American) 87.1; Potassium 3.7 mmol/L (3.5-5.1)
[2019-10-24 07:22] LABS: Albumin Globulin Ratio 0.9 (0.9-2); Bilirubin,Total 1.3 mg/dl (0.2-1); Globulin 3.1 gm/dl (2.5-4.0); Total Protein 5.8 gm/dl (6.4-8.2)
[2019-10-24] MEDS: metroNIDAZOLE 500 MG/100 ML BAG IV SCH ×2 (08:06→15:17)
[2019-10-24] MEDS: CEFEPIME 2,000 MG in SYRINGE 7.5 ML IV SCH ×2 (08:09→15:18)
[2019-10-24] MEDS: CALCIUM 600MG + VIT D 400 IU TAB PO SCH ×3 (08:13→20:53)
[2019-10-24] MEDS: DONEPEZIL HCL 10 MG TAB PO SCH (08:13)
[2019-10-24] MEDS: ESCITALOPRAM OXALATE 20 MG TAB PO SCH (08:14)
[2019-10-24] MEDS: LACTOBACILLUS ACIDOPHILUS (FLORANEX) TAB PO SCH ×3 (08:14→15:17)
[2019-10-24] MEDS: ATORVASTATIN 40 MG TAB PO SCH (08:15)
[2019-10-24] MEDS: FAMOTIDINE 20 MG TAB PO SCH ×2 (08:15→20:43)
[2019-10-24] MEDS: ENALAPRIL MALEATE 10 MG TAB PO SCH (08:16)
[2019-10-24] MEDS: TIMOLOL MALEATE 0.25% OP SOLN 5 ML BTL OP SCH ×2 (08:17→20:38)
[2019-10-24] MEDS: INSULIN ASPART 100 UNITS/ML 3 ML PEN SC SCH ×4 (08:20→20:58)
[2019-10-24] MEDS ORDERED: ATORVASTATIN 40 MG TAB PO SCH (09:00)
[2019-10-24] MEDS ORDERED: ESCITALOPRAM OXALATE 20 MG TAB PO SCH (09:00)
[2019-10-24] MEDS ORDERED: DONEPEZIL HCL 10 MG TAB PO SCH (09:00)
[2019-10-24] MEDS: NSS + 20MEQ KCL 20 MEQ/1,000 ML BAG IV SCH ×3 (09:20→20:35)
--- NOTE | 2019-10-24 13:50 | Pharmacy Report ---
Pharmacy Abx Initial Consult - Date of Service October 24, 2019 - Pharmacy Dosing Scope Date of Consult: 10/24/19 Consultation requested by: Dr. Rodriguez Pharmacy is consulted to initiate vancomycin IV dosing therapy, order appropriate labs and adjust drug dose/frequency. - Subjective The patient is a 84 year old F admitted on 10/23/19 14:31. - Objective Height: 5 ft 3 in Weight: 62 kg Vital Signs (Past 12hrs): Vital Signs Temp Pulse Resp BP Pulse Ox 10/24/19 12:06 37 C 71 18 135/51 L 100 10/24/19 07:14 37.0 C 85 19 160/63 H 98 Lab Results (24hrs): Laboratory Tests (24 Hours) 10/24/19 10/24/19 10/23/19 06:29 06:29 10:40 WBC 9.01 Neut # (Auto) 6.65 H Creatinine 0.51 L D Est Cr Clr Drug Dosing 65.5 C-Reactive Protein Procalcitonin 0.07 10/23/19 10:40 WBC Neut # (Auto) Creatinine Est Cr Clr Drug Dosing C-Reactive Protein 3.11 H Procalcitonin Micro Results: 10/23/19 12:38 Gram Stain - Final Vaginal 10/23/19 13:56 Aerobic Blood Culture - Pending Blood Anaerobic Blood Culture - Pending 10/23/19 13:56 Aerobic Blood Culture - Pending Blood Anaerobic Blood Culture - Pending - Risk Factors for Resistance * Resident in a [facility] or extended-care facility ([facility]) * Hospitalization for 48 hours or more within the past 90 days - recently here on 10/20 -> transferred to [facility] and discharged 10/21. * Antimicrobial use within the last 90 days (cefazolin) - Assessment & Plan Assessment 84 year old F ordered empiric vancomycin, cefepime, and metronidazole for treatment of possible infection. Patient recently admitted here and treated for vaginal foreign body with laceration. Patient was transfused 2 units of blood and vaginally packed. Tmax of 101.5 F prior to admission. ER provider performed pelvic exam - greenish/yellow discharge noted. Vaginal culture growing gram negative bacilli. Blood cultures x 2 pending. Urine culture preliminary no growth. Leukocytosis improved overnight 16.7 -> 9.01. Plan Vancomycin IV * Estimated PK Parameters: Vd 0.7 L/kg, Delvis 0.58 hr-1, t1/2 12 hr * Loading dose: 1500 mg (24 mg/kg) * Maintenance dose: 1000 mg IV (16 mg/kg) every 16 hours * Goal trough level for this empiric indication : 15 to 20 mcg/mL * Will order trough if vanco to be continued greater than 48 hours Cefepime IV - target dose of 2 g IV q8h * Adjusted dose to 2 g IV q8h based on estimated CrCl of 65 mL/min Metronidazole IV - continue 500 mg IV q8h Pharmacy will continue to follow and will adjust dose/frequency as necessary. Thank you.
[2019-10-24] MEDS ORDERED: HydrALAZINE HCL 20 MG/ML VIAL IV PRN (15:13)
--- NOTE | 2019-10-24 15:14 | Hospitalist Progress Note ---
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 she has had no COVID-19 exposure (no known cases at [facility]) but has had 3 hospitalizations in the last week which will heighten her COVID risk. -COVID-19 sent on admission-pending but low likelihood of cause of fever urine cx negative -continue to tx empirically with cefepime IV and flagyl IV; Vanco was added on by overnight MD and will dc as not likely in setting of vaginal infection repeat CBC in am. (2) Metabolic encephalopathy: suspect due to underlying infectious process. her multiple hospital stays at 2 different hospitals, recent anest hesia/sedation, travel, unfamiliar environments, back/forth to [facility], etc in the setting of mod-severe dementia may also be contributing. Very delirious and agitated overnight, treated with IM Haldol Seems improved today Continue to treat underlying infection. avoid sedatives. if needed would start low-dose risperdal for severe agitation but defer for now. recent TSH wnl. (3) Vaginal hemorrhage: See HPI for details of her 3 hospital stays (2 here, 1 at [facility]). NO vaginal bleeding since 10/21/2019. Bleeding was 2nd to a vaginal laceration in the setting of a vaginal foreign body. Vaginal biopsy negative for cancer. (4) Hypokalemia: 2nd to HCTZ +/- poor intake? received replacement repeat BMP am. -continue to hold HCTZ. mag level noted to be normal. (5) DM w/o complication type II: No HbA1C in EMR. On metformin TID at [facility]. Hold metformin. continue novolog - use correction factor 50; carb ratio 1:15. BSGs ac/hs. (6) Dementia: mod-severe at baseline per [facility] but typically can walk with walker, feed herself, is continent of urine, etc. Now w/ superimposed encephalopathy. Cont aricept. (7) HTN (hypertension): Hold HCTZ Cont ARSH With high BPs from refusing meds--> add on prn IV hydralazine (8) Hyperlipidemia: ok to restart lipitor (9) Glaucoma: cont home drops (10) Abnormal CT scan, pelvis: arianna-rectal stranding noted on CT pelvis Admitting hospitalist performed chaperoned ERWIN in ER - no evidence of proctitis, impaction, etc on examination ?anterior wall lump/firmness - uncertain significance of that abnormality - consider GI f/u post-discharge if desired by family (11) Elevated bilirubin: Improved prior total bili levels have been normal. biliary tract and gall bladder were normal on CT. no imaging needed (12) Acute blood loss anemia: Hb 13.5 on 10/15. Had copious vaginal bleeding requiring 2 units PRBCs on 10/20. Hb 8.5 on 10/21 at [facility]. Hb 9.6 on admission, now slight drop to 8.7 from hemodilution; no evidence of ongoing bleeding. Would benefit from Fe supplementation upon discharge. (13) DVT prophylaxis: due to recent vaginal bleeding and acute blood loss anemia from such would defer on chemical means for now. SCDs. If no vaginal bleeding next 1-2 days then restart chemical DVT proph. DNR/DNI Admission and Anticipated Discharge Date Admission Date: October 23, 2019 Subjective Pt pleasantly confused today and keeps her eyes shut. When asked if she has any abdominal pain, she states "no, do you?" Denies CP or SOB. Overnight was kicking, biting, pulling at things and was given Haldol IM. Today is calmer, but refusing all pills and not eating much at all. No further fevers and is requiring a 1:1 Tele with NSR rates 60-120s Review of Systems Review of Systems: Unobtainable due to cognitive status but RN reports no vag bleeding Physical Exam Constitutional: WD/WN, vitals as above Neck: trachea midline, no thyromegaly Respiratory: normal respiratory effort, lungs clear to auscultation Cardiovascular: RRR, no murmur, no edema Chest (Breasts): Chest: normal inspection of chest Gastrointestinal (Abdomen): normal bowel sounds, soft, nontender, no hepatosplenomegaly Musculoskeletal: Extremities: extremities normal to inspection; no cyanosis and no clubbing Skin: no rashes, warm and dry Neurologic: moves all extremities and awake; no focal motor deficits Lymphatic: no lymphedema Results & Data Results & Data ([facility]) Vital Signs (Past 12 Hours) Vital Signs Temp Pulse Resp BP Pulse Ox 10/24/19 15:10 37.0 C 106 H 20 194/62 H 99 10/24/19 12:06 37 C 71 18 135/51 L 100 10/24/19 07:14 37.0 C 85 19 160/63 H 98 Laboratory Results 10/24/19 10/24/19 10/24/19 Range/Units 20:15 16:27 12:09 WBC (4.8-10.8) K/uL RBC (4.2-5.4) M/uL Hgb (12.0-16.0) g/dL Hct (37-47) % MCV (80-100) fL MCH (25-34) pg MCHC (32-36) g/dL RDW Std Deviation (36.4-46.3) fL RDW Coeff of Anyi (11.5-14.5) % Plt Count (130-400) K/uL MPV (7.4-10.4) fL Immature Gran % (Auto) % Neut % (Auto) % Lymph % (Auto) % Hunt % (Auto) % Eos % (Auto) % Baso % (Auto) % Immature Gran # (Auto) (0.00-0.02) K/uL Neut # (Auto) (1.4-6.5) K/uL Lymph # (Auto) (1.2-3.4) K/uL Hunt # (Auto) (0.11-0.59) K/uL Eos # (Auto) (0-0.5) K/uL Baso # (Auto) (0-0.2) K/uL Sodium (136-145) mmol/L Potassium (3.5-5.1) mmol/L Chloride (98-107) mmol/L Carbon Dioxide (21-32) mmol/L Anion Gap (3-11) BUN (7-18) mg/dl Creatinine (0.6-1.2) mg/dl Est Cr Clr Drug Dosing ml/min Est GFR ( Amer) Est GFR (Non-Af Amer) BUN/Creatinine Ratio (10-20) Glucose (70-99) mg/dl POC Glucose 85 99 101 H (70-99) mg/dl Calcium (8.5-10.1) mg/dl Total Bilirubin (0.2-1) mg/dl AST (15-37) U/L ALT (12-78) U/L Alkaline Phosphatase (45-117) U/L Total Protein (6.4-8.2) gm/dl Albumin (3.4-5.0) gm/dl Globulin (2.5-4.0) gm/dl Albumin/Globulin Ratio (0.9-2) 10/24/19 10/24/19 10/24/19 Range/Units 08:03 06:29 06:29 WBC 9.01 (4.8-10.8) K/uL RBC 2.98 L (4.2-5.4) M/uL Hgb 8.7 L (12.0-16.0) g/dL Hct 26.3 L (37-47) % MCV 88.3 (80-100) fL MCH 29.2 (25-34) pg MCHC 33.1 (32-36) g/dL RDW Std Deviation 46.1 (36.4-46.3) fL RDW Coeff of Anyi 14.5 (11.5-14.5) % Plt Count 232 (130-400) K/uL MPV 10.2 (7.4-10.4) fL Immature Gran % (Auto) 0.3 % Neut % (Auto) 73.9 % Lymph % (Auto) 15.2 % Hunt % (Auto) 6.4 % Eos % (Auto) 4.0 % Baso % (Auto) 0.2 % Immature Gran # (Auto) 0.03 H (0.00-0.02) K/uL Neut # (Auto) 6.65 H (1.4-6.5) K/uL Lymph # (Auto) 1.37 (1.2-3.4) K/uL Hunt # (Auto) 0.58 (0.11-0.59) K/uL Eos # (Auto) 0.36 (0-0.5) K/uL Baso # (Auto) 0.02 (0-0.2) K/uL Sodium 142 D (136-145) mmol/L Potassium 3.7 D (3.5-5.1) mmol/L Chloride 115 H (98-107) mmol/L Carbon Dioxide 23 (21-32) mmol/L Anion Gap 4.0 (3-11) BUN 6 L D (7-18) mg/dl Creatinine 0.51 L D (0.6-1.2) mg/dl Est Cr Clr Drug Dosing 65.5 ml/min Est GFR ( Amer) 100.9 Est GFR (Non-Af Amer) 87.1 BUN/Creatinine Ratio 12.5 (10-20) Glucose 101 H (70-99) mg/dl POC Glucose 98 (70-99) mg/dl Calcium 8.1 L (8.5-10.1) mg/dl Total Bilirubin 1.3 H (0.2-1) mg/dl AST 17 (15-37) U/L ALT 19 (12-78) U/L Alkaline Phosphatase 62 (45-117) U/L Total Protein 5.8 L (6.4-8.2) gm/dl Albumin 2.7 L (3.4-5.0) gm/dl Globulin 3.1 (2.5-4.0) gm/dl Albumin/Globulin Ratio 0.9 (0.9-2) Vag cx with GNR PG Care Time/CCT Total # of Minutes Spent Total Time Spent with Patient: Total time spent is greater than 50% in coordination of care (as documented) at patient's floor/unit and/or counseling patient: Coding Level of Care Code 40204 Subseq Hosp Care Lvl 2 Diagnoses Fever R50.9 Fever type: unspecified Metabolic encephalopathy G93.41 Vaginal hemorrhage N93.9 Hypokalemia E87.6 DM w/o complication type II E11.9 Dementia F03.90 HTN (hypertension) I10 Hyperlipidemia E78.[address] scan, pelvis R93.5 Elevated bilirubin R17 Acute blood loss anemia D62 DVT prophylaxis Z29.9 (1) Fever Fever type: unspecified Qualified Code(s): R50.9 - Fever, unspecified
[2019-10-24] MEDS ORDERED: VANCOMYCIN HCL 1,000 MG in SODIUM CHLORIDE 0.9% 250 ML IV SCH (20:00)
[2019-10-24] MEDS: BIMATOPROST 0.01% OP SOLN 2.5 ML BTL OPL SCH (20:37)
[2019-10-25] MEDS ORDERED: VANCOMYCIN HCL 1,250 MG in SODIUM CHLORIDE 0.9% 250 ML IV SCH
[2019-10-25] MEDS: CEFEPIME 2,000 MG in SYRINGE 7.5 ML IV SCH ×2 (00:25→09:07)
[2019-10-25] MEDS: metroNIDAZOLE 500 MG/100 ML BAG IV SCH ×2 (00:26→09:07)
[2019-10-25] MEDS: NSS + 20MEQ KCL 20 MEQ/1,000 ML BAG IV SCH ×2 (06:24→15:41)
[2019-10-25 06:37] LABS: Basophils # (auto) 0.02 K/uL (0-0.2); Basophils % (auto) 0.3 %; Eosinophils # (auto) 0.41 K/uL (0-0.5); Eosinophils % (auto) 5.8 %; Hematocrit (blood only) 29.5 % (37-47); Hemoglobin 9.8 g/dL (12.0-16.0); Immature Granulocytes # (auto) 0.02 K/uL (0.00-0.02); Immature Granulocytes % (auto) 0.3 %; Lymphocytes # (auto) 1.34 K/uL (1.2-3.4); Mean Corpuscular Hemoglobin 29.4 pg (25-34); Mean Corpuscular Hgb Conc 33.2 g/dL (32-36); Mean Corpuscular Volume 88.6 fL (80-100); Mean Platelet Volume 9.9 fL (7.4-10.4); Monocytes # (auto) 0.41 K/uL (0.11-0.59); Monocytes % (auto) 5.8 %; Neutrophils # (auto) 4.86 K/uL (1.4-6.5); Neutrophils % (auto) 68.8 %; Platelet Count 296 K/uL (130-400); RDW Coefficient of Variation 14.3 % (11.5-14.5); RDW Standard Deviation 46.6 fL (36.4-46.3); Red Blood Count 3.33 M/uL (4.2-5.4); White Blood Count 7.06 K/uL (4.8-10.8)
[2019-10-25 07:05] LABS: Albumin Level 2.9 gm/dl (3.4-5.0); Calcium 8.5 mg/dl (8.5-10.1); Creatinine Clr Calc Pharmacy 64.2 ml/min; Est GFR (African American) 100.3; Est GFR (Non-African American) 86.5; Potassium 3.5 mmol/L (3.5-5.1)
[2019-10-25 07:08] LABS: Albumin Globulin Ratio 0.8 (0.9-2); Bilirubin,Total 1.2 mg/dl (0.2-1); Globulin 3.5 gm/dl (2.5-4.0); Total Protein 6.4 gm/dl (6.4-8.2)
[2019-10-25] MEDS ORDERED: cefTRIAXone SODIUM 1,000 MG in DEXTROSE 5% 50 ML IV SCH (09:00)
[2019-10-25] MEDS: FAMOTIDINE 20 MG TAB PO SCH ×2 (09:16→21:18)
[2019-10-25] MEDS: ATORVASTATIN 40 MG TAB PO SCH (09:17)
[2019-10-25] MEDS: CALCIUM 600MG + VIT D 400 IU TAB PO SCH ×2 (09:17→13:07)
[2019-10-25] MEDS: ENALAPRIL MALEATE 10 MG TAB PO SCH (09:17)
[2019-10-25] MEDS: LACTOBACILLUS ACIDOPHILUS (FLORANEX) TAB PO SCH ×3 (09:18→17:00)
[2019-10-25] MEDS: ESCITALOPRAM OXALATE 20 MG TAB PO SCH (09:18)
[2019-10-25] MEDS: DONEPEZIL HCL 10 MG TAB PO SCH (09:18)
[2019-10-25] MEDS: INSULIN ASPART 100 UNITS/ML 3 ML PEN SC SCH ×4 (09:18→21:04)
[2019-10-25] MEDS: TIMOLOL MALEATE 0.25% OP SOLN 5 ML BTL OP SCH ×2 (09:19→21:19)
[2019-10-25] MEDS ORDERED: HALOPERIDOL LACTATE 5 MG/ML 1 ML VIAL IM PRN (15:16)
--- NOTE | 2019-10-25 20:12 | Hospitalist Progress Note ---
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 Vag cx growing pansensitive E. coli -BCxs NGTD, urine culture negative No further fevers since admission, is improving, however with significant delirium as below -She has had no COVID-19 exposure (no known cases at [facility]) but has had 3 hospitalizations in the last week which will heighten her COVID risk. -COVID-19 sent on admission-pending but low likelihood of cause of fever -Will now DC cefepime IV and flagyl IV -Narrow antibiotics down to IV ceftriaxone 1000 mg IV daily-would not convert to p.o. antibiotics until patient reliably taking p.o. as she has been refusing most medications at times due to delirium (2) Metabolic encephalopathy: With significant agitation and delirium throughout the last 2 days, waxing and waning Suspect due to underlying infectious process plus recent hemorrhage requiring transfusion, 3 different hospital stays all in the setting of underlying dementia. -Treated with IM Haldol on 2 occasions Continue to treat underlying infection. -Continued supportive care, redirection and reorientation -Hopefully will improve enough to take oral medication and can get her back to [facility] where she is in familiar surroundings Still requiring a one-on-one sitter (3) Vaginal hemorrhage: See [facility] for details of her 3 hospital stays (2 here, 1 at [facility]). NO vaginal bleeding since 10/21/2019. Bleeding was 2nd to a vaginal laceration in the setting of a vaginal foreign body. Hemoglobin remained stable at 9 Vaginal biopsy negative for cancer. (4) Hypokalemia: 2nd to HCTZ +/- poor intake upon arrival received replacement and now improved repeat BMP am. -continue to hold HCTZ. mag level noted to be normal. (5) DM w/o complication type II: On metformin TID at [facility]. Hold metformin while inpatient. continue novolog sliding scale although has not required any insulin the whole time she has been here and glucose very well controlled BSGs ac/hs. (6) Dementia: mod-severe at baseline per [facility] but typically can walk with walker, feed herself, is continent of urine, etc. Now w/ superimposed encephalopathy. -Cont aricept. (7) HTN (hypertension): Blood pressure is mildly elevated -Continue to hold HCTZ in the setting of poor p.o. intake -Cont ACEi With high BPs from refusing meds--> add on prn IV hydralazine (8) Hyperlipidemia: Continue statin (9) Glaucoma: cont home drops (10) Abnormal CT scan, pelvis: marysol-rectal stranding noted on CT pelvis Admitting hospitalist performed chaperoned ERWIN in ER - no evidence of proctitis, impaction, etc on examination ?anterior wall lump/firmness palpated by admitting physician- uncertain significance of that abnormality - consider GI f/u post-discharge if desired by family (11) Elevated bilirubin: Improved prior total bili levels have been normal. biliary tract and gall bladder were normal on CT. no imaging needed (12) Acute blood loss anemia: Hb 13.5 on 10/15. Had copious vaginal bleeding requiring 2 units PRBCs on 10/20. Hb 8.5 on 10/21 at [facility]. Hb 9.6 on admission, and remained stable-no evidence of ongoing bleeding. Would benefit from Fe supplementation upon discharge. (13) DVT prophylaxis: due to recent vaginal bleeding and acute blood loss anemia from such would defer on chemical means for now. SCDs. If no vaginal bleeding and hemoglobin remained stable again by tomorrow, then restart chemical DVT proph. Eventually, plan is back to [facility] memory unit, however with ongoing delirium, not clear when that will be DNR/DNI I updated her son David by phone about her ongoing care Admission and Anticipated Discharge Date Admission Date: October 23, 2019 Subjective Patient continues to be quite agitated at times today and is trying to climb out of bed. When I saw her, she was repeating over and over "I do not understand, I do not understand." She was on a bedpan but kept shouting out that she had to pee and why would not anyone let her pee and did not realize that she was on the bedpan. She did receive a dose of IM Haldol for her safety when she was trying to climb out of the bed. Upon further questioning, it seems that perhaps she is having some pain in the vaginal area causing her pain when she urinates which may be why she is having difficulty urinating on the bedpan. Telemetry with sinus arrhythmia and 2 brief bursts of SVT I discussed her care with her son on the phone. Review of Systems Review of Systems: Unobtainable due to cognitive status Physical Exam Constitutional: WD/WN, vitals as above Eyes: + anicteric sclerae ENMT: Ears: no hearing impairment Neck: trachea midline, no thyromegaly Respiratory: normal respiratory effort, lungs clear to auscultation Cardiovascular: RRR, no murmur, no edema Chest (Breasts): Chest: normal inspection of chest Gastrointestinal (Abdomen): normal bowel sounds, soft, nontender, no hepatosplenomegaly Musculoskeletal: Extremities: extremities normal to inspection; no cyanosis and no clubbing Skin: no rashes, warm and dry Neurologic: moves all extremities and awake; no focal motor deficits Speech / Cognition: normal speech Psychiatric: Orientation: oriented to person; + not oriented to place, + not oriented to time and + uncooperative Eye Contact: + poor eye contact Affect: + anxious affect Mood: + anxious mood Thought Process: + circumstantial thought process Judgement: + severely impaired judgement Lymphatic: no lymphedema Results & Data Results & Data ([facility]) Vital Signs (Past 12 Hours) Vital Signs Temp Pulse Pulse Resp BP Pulse Ox 10/25/19 19:43 36.9 C 97 H 18 155/61 H 98 10/25/19 15:04 37.2 C 74 21 151/53 H 98 10/25/19 11:40 114 H 10/25/19 11:37 36.5 C 74 17 163/61 H 98 Laboratory Results 10/25/19 10/25/19 10/25/19 Range/Units 16:41 11:17 07:37 WBC (4.8-10.8) K/uL RBC (4.2-5.4) M/uL Hgb (12.0-16.0) g/dL Hct (37-47) % MCV (80-100) fL MCH (25-34) pg MCHC (32-36) g/dL RDW Std Deviation (36.4-46.3) fL RDW Coeff of Anyi (11.5-14.5) % Plt Count (130-400) K/uL MPV (7.4-10.4) fL Immature Gran % (Auto) % Neut % (Auto) % Lymph % (Auto) % [place] % (Auto) % Eos % (Auto) % Baso % (Auto) % Immature Gran # (Auto) (0.00-0.02) K/uL Neut # (Auto) (1.4-6.5) K/uL Lymph # (Auto) (1.2-3.4) K/uL [place]on # (Auto) (0.11-0.59) K/uL Eos # (Auto) (0-0.5) K/uL Baso # (Auto) (0-0.2) K/uL Sodium (136-145) mmol/L Potassium (3.5-5.1) mmol/L Chloride (98-107) mmol/L Carbon Dioxide (21-32) mmol/L Anion Gap (3-11) BUN (7-18) mg/dl Creatinine (0.6-1.2) mg/dl Est Cr Clr Drug Dosing ml/min Est GFR ( Amer) Est GFR (Non-Af Amer) BUN/Creatinine Ratio (10-20) Glucose (70-99) mg/dl POC Glucose 107 H 99 78 (70-99) mg/dl Calcium (8.5-10.1) mg/dl Magnesium (1.8-2.4) mg/dl Total Bilirubin (0.2-1) mg/dl AST (15-37) U/L ALT (12-78) U/L Alkaline Phosphatase (45-117) U/L Total Protein (6.4-8.2) gm/dl Albumin (3.4-5.0) gm/dl Globulin (2.5-4.0) gm/dl Albumin/Globulin Ratio (0.9-2) 10/25/19 10/25/19 10/24/19 Range/Units 06:18 06:18 20:15 WBC 7.06 (4.8-10.8) K/uL RBC 3.33 L (4.2-5.4) M/uL Hgb 9.8 L (12.0-16.0) g/dL Hct 29.5 L (37-47) % MCV 88.6 (80-100) fL MCH 29.4 (25-34) pg MCHC 33.2 (32-36) g/dL RDW Std Deviation 46.6 H (36.4-46.3) fL RDW Coeff of Anyi 14.3 (11.5-14.5) % Plt Count 296 (130-400) K/uL MPV 9.9 (7.4-10.4) fL Immature Gran % (Auto) 0.3 % Neut % (Auto) 68.8 % Lymph % (Auto) 19.0 % Macon % (Auto) 5.8 % Eos % (Auto) 5.8 % Baso % (Auto) 0.3 % Immature Gran # (Auto) 0.02 (0.00-0.02) K/uL Neut # (Auto) 4.86 (1.4-6.5) K/uL Lymph # (Auto) 1.34 (1.2-3.4) K/uL Macon # (Auto) 0.41 (0.11-0.59) K/uL Eos # (Auto) 0.41 (0-0.5) K/uL Baso # (Auto) 0.02 (0-0.2) K/uL Sodium 140 (136-145) mmol/L Potassium 3.5 (3.5-5.1) mmol/L Chloride 110 H (98-107) mmol/L Carbon Dioxide 24 (21-32) mmol/L Anion Gap 5.0 (3-11) BUN 7 (7-18) mg/dl Creatinine 0.52 L (0.6-1.2) mg/dl Est Cr Clr Drug Dosing 64.2 ml/min Est GFR ( Amer) 100.3 Est GFR (Non-Af Amer) 86.5 BUN/Creatinine Ratio 13.0 (10-20) Glucose 87 (70-99) mg/dl POC Glucose 85 (70-99) mg/dl Calcium 8.5 (8.5-10.1) mg/dl Magnesium 2.0 (1.8-2.4) mg/dl Total Bilirubin 1.2 H (0.2-1) mg/dl AST 22 (15-37) U/L ALT 22 (12-78) U/L Alkaline Phosphatase 67 (45-117) U/L Total Protein 6.4 (6.4-8.2) gm/dl Albumin 2.9 L (3.4-5.0) gm/dl Globulin 3.5 (2.5-4.0) gm/dl Albumin/Globulin Ratio 0.8 L (0.9-2) Vaginal culture growing pansensitive E. coli Blood cultures-no growth to date PG Care Time/CCT Total # of Minutes Spent Total Time Spent with Patient: Total time spent is greater than 50% in coordination of care (as documented) at patient's floor/unit and/or counseling patient: Coding Level of Care Code 23344 Subseq Hosp Care Lvl 3 Diagnoses Fever R50.9 Fever type: unspecified Metabolic encephalopathy G93.41 Vaginal hemorrhage N93.9 Hypokalemia E87.6 DM w/o complication type II E11.9 Dementia F03.90 HTN (hypertension) I10 Hyperlipidemia E78.[address] scan, pelvis R93.5 Elevated bilirubin R17 Acute blood loss anemia D62 DVT prophylaxis Z29.9 (1) Fever Fever type: unspecified Qualified Code(s): R50.9 - Fever, unspecified
[2019-10-25] MEDS: BIMATOPROST 0.01% OP SOLN 2.5 ML BTL OPL SCH (21:18)
[2019-10-26 06:27] LABS: Basophils # (auto) 0.03 K/uL (0-0.2); Basophils % (auto) 0.4 %; Eosinophils # (auto) 0.37 K/uL (0-0.5); Hematocrit (blood only) 28.2 % (37-47); Hemoglobin 9.2 g/dL (12.0-16.0); Immature Granulocytes # (auto) 0.02 K/uL (0.00-0.02); Immature Granulocytes % (auto) 0.3 %; Lymphocytes # (auto) 1.48 K/uL (1.2-3.4); Lymphocytes % (auto) 19.9 %; Mean Corpuscular Hemoglobin 29.2 pg (25-34); Mean Corpuscular Hgb Conc 32.6 g/dL (32-36); Mean Corpuscular Volume 89.5 fL (80-100); Mean Platelet Volume 9.8 fL (7.4-10.4); Monocytes # (auto) 0.58 K/uL (0.11-0.59); Monocytes % (auto) 7.8 %; Neutrophils # (auto) 4.95 K/uL (1.4-6.5); Neutrophils % (auto) 66.6 %; Platelet Count 320 K/uL (130-400); RDW Coefficient of Variation 14.2 % (11.5-14.5); RDW Standard Deviation 46.5 fL (36.4-46.3); Red Blood Count 3.15 M/uL (4.2-5.4); White Blood Count 7.43 K/uL (4.8-10.8)
[2019-10-26 07:00] LABS: BUN Creatinine Ratio 22.4 (10-20); Creatinine Clr Calc Pharmacy 68.2 ml/min; Est GFR (African American) 102.2; Est GFR (Non-African American) 88.2
[2019-10-26] MEDS ORDERED: HydrALAZINE HCL 20 MG/ML VIAL IV PRN (07:53)
[2019-10-26] MEDS ORDERED: POTASSIUM CHLORIDE 20 MEQ TABCR PO ONE (09:00)
[2019-10-26] MEDS: ENALAPRIL MALEATE 10 MG TAB PO SCH (09:22)
[2019-10-26] MEDS: ATORVASTATIN 40 MG TAB PO SCH (09:22)
[2019-10-26] MEDS: DONEPEZIL HCL 10 MG TAB PO SCH (09:22)
[2019-10-26] MEDS: FAMOTIDINE 20 MG TAB PO SCH ×2 (09:22→21:16)
[2019-10-26] MEDS: ESCITALOPRAM OXALATE 20 MG TAB PO SCH (09:23)
[2019-10-26] MEDS: LACTOBACILLUS ACIDOPHILUS (FLORANEX) TAB PO SCH ×3 (09:23→17:07)
[2019-10-26] MEDS: TIMOLOL MALEATE 0.25% OP SOLN 5 ML BTL OP SCH ×2 (09:24→21:11)
[2019-10-26] MEDS: cefTRIAXone SODIUM 1,000 MG in DEXTROSE 5% 50 ML IV SCH (09:24)
[2019-10-26] MEDS: INSULIN ASPART 100 UNITS/ML 3 ML PEN SC SCH ×4 (09:43→21:31)
--- NOTE | 2019-10-26 16:11 | Hospitalist Progress Note ---
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 Vag cx growing pansensitive E. coli -BCxs NGTD, urine culture negative No further fevers since admission, is improving, however with significant delirium as below -She has had no COVID-19 exposure (no known cases at [place]) but has had 3 hospitalizations in the last week which will heighten her COVID risk. -COVID-19 sent on admission-pending but low likelihood of cause of fever -Continue on IV ceftriaxone 1000 mg IV daily - Plan to continue on IV Abx until COVID-19 back and she is reliably taking PO meds. (2) Metabolic encephalopathy: Appears much calmer today than what has robyn described previously. Possibly due to treatment for infection as above. Suspect due to underlying infectious process plus recent hemorrhage requiring transfusion, 3 different hospital stays all in the setting of underlying dementia. -Treated with IM Haldol on 2 occasions Continue to treat underlying infection. -Continued supportive care, redirection and reorientation -Hopefully will improve enough to take oral medication and can get her back to [facility] where she is in familiar surroundings No longer requiring one-one sitter (3) Vaginal hemorrhage: See [facility] for details of her 3 hospital stays (2 here, 1 at [facility]). NO vaginal bleeding since 10/21/2019. Bleeding was 2nd to a vaginal laceration in the setting of a vaginal foreign b adela. Hemoglobin remained stable at 9 Vaginal biopsy negative for cancer. (4) Hypokalemia: 2nd to HCTZ +/- poor intake upon arrival back to 3.0 this morning. KCl 40 meq PO given this morning (5) DM w/o complication type II: On metformin TID at [place]. Hold metformin while inpatient. continue novolog sliding scale although has not required any insulin the whole time she has been here and glucose very well controlled BSGs ac/hs. (6) Dementia: mod-severe at baseline per [facility] but typically can walk with walker, feed herself, is continent of urine, etc. Now w/ superimposed encephalopathy. -Cont aricept. (7) HTN (hypertension): Blood pressure is mildly elevated -Continue to hold HCTZ in the setting of poor p.o. intake -Cont ACEi With high BPs from refusing meds--> add on prn IV hydralazine (8) Hyperlipidemia: Continue statin (9) Glaucoma: cont home drops (10) Abnormal CT scan, pelvis: marysol-rectal stranding noted on CT pelvis Admitting hospitalist performed chaperoned ERWIN in ER - no evidence of proctitis, impaction, etc on examination ?anterior wall lump/firmness palpated by admitting physician- uncertain significance of that abnormality - consider GI f/u post-discharge if desired by family (11) Elevated bilirubin: Improved prior total bili levels have been normal. biliary tract and gall bladder were normal on CT. no imaging needed (12) Acute blood loss anemia: Hb 13.5 on 10/15. Had copious vaginal bleeding requiring 2 units PRBCs on 10/20. Hb 8.5 on 10/21 at [facility]. Hb 9.6 on admission, and remained stable-no evidence of ongoing bleeding. (13) DVT prophylaxis: Since Hgb dowtrending will avoid chemical prophylaxis for now. SCDs. Eventually, plan is back to [facility] unit, however with ongoing delirium, not clear when that will be DNR/DNI Admission and Anticipated Discharge Date Admission Date: October 23, 2019 Subjective Patient unable to give any history. She is unable to tell me her last name, date of on any recent medical history. She has moderate-severe dementia at baseline. Review of Systems Review of Systems: Unobtainable due to cognitive status Physical Exam Constitutional: WD/WN, vitals as above + altered mental status and + frail appearing ENMT: external ear and nose normal, oropharynx normal Neck: trachea midline, no thyromegaly Respiratory: normal respiratory effort, lungs clear to auscultation Cardiovascular: Rate/Rhythm: regular rate and regular rhythm Heart Sounds: normal S1 and normal S2; no murmur Vessels: no JVD Extremities: normal capillary refill; no edema Chest (Breasts): Chest: normal inspection of chest Gastrointestinal (Abdomen): Inspection/Auscultation: normal bowel sounds Percussion/Palpation: abdomen soft; abdomen nontender, no guarding and abdomen not rigid Musculoskeletal: Extremities: extremities normal to inspection; no cyanosis and no clubbing Skin: no rashes, warm and dry Neurologic: deep tendon reflexes 2+ bilaterally, moves all extremities and awake; no focal motor deficits Speech / Cognition: normal speech Psychiatric: Orientation: alert; + not oriented to person, + not oriented to place and + not oriented to time Eye Contact: + fair eye contact Affect: + anxious affect Mood: + anxious mood Judgement: + severely impaired judgement Results & Data Results & Data ([facility]) Vital Signs (Past 12 Hours) Vital Signs Temp Pulse Resp BP Pulse Ox 10/26/19 12:28 36.9 C 80 18 148/76 H 98 10/26/19 07:06 36.8 C 68 17 154/64 H 99 PG Care Time/CCT Total # of Minutes Spent Total Time Spent with Patient: Total time spent is greater than 50% in co ordination of care (as documented) at patient's floor/unit and/or counseling patient: Coding Level of Care Code 97164 Subseq Hosp Care Lvl 2 Diagnoses Fever R50.9 Fever type: unspecified Metabolic encephalopathy G93.41 Vaginal hemorrhage N93.9 Hypokalemia E87.6 DM w/o complication type II E11.9 Dementia F03.90 HTN (hypertension) I10 Hyperlipidemia E78.[address] scan, pelvis R93.5 Elevated bilirubin R17 Acute blood loss anemia D62 DVT prophylaxis Z29.9 (1) Fever Fever type: unspecified Qualified Code(s): R50.9 - Fever, unspecified
[2019-10-26] MEDS: BIMATOPROST 0.01% OP SOLN 2.5 ML BTL OPL SCH (21:14)
[2019-10-27 06:52] LABS: Hematocrit (blood only) 30.8 % (37-47); Hemoglobin 10.3 g/dL (12.0-16.0); Mean Corpuscular Hemoglobin 29.6 pg (25-34); Mean Corpuscular Hgb Conc 33.4 g/dL (32-36); Mean Corpuscular Volume 88.5 fL (80-100); Mean Platelet Volume 9.8 fL (7.4-10.4); Platelet Count 382 K/uL (130-400); RDW Standard Deviation 45.1 fL (36.4-46.3); Red Blood Count 3.48 M/uL (4.2-5.4); White Blood Count 8.76 K/uL (4.8-10.8)
[2019-10-27 07:23] LABS: BUN Creatinine Ratio 22.9 (10-20); Calcium 8.1 mg/dl (8.5-10.1); Est GFR (African American) 82.3; Potassium 3.3 mmol/L (3.5-5.1)
[2019-10-27] MEDS: FAMOTIDINE 20 MG TAB PO SCH ×2 (08:14→20:20)
[2019-10-27] MEDS: DONEPEZIL HCL 10 MG TAB PO SCH (08:15)
[2019-10-27] MEDS: LACTOBACILLUS ACIDOPHILUS (FLORANEX) TAB PO SCH ×3 (08:15→16:56)
[2019-10-27] MEDS: TIMOLOL MALEATE 0.25% OP SOLN 5 ML BTL OP SCH ×2 (08:15→20:20)
[2019-10-27] MEDS: ESCITALOPRAM OXALATE 20 MG TAB PO SCH (08:16)
[2019-10-27] MEDS: ENALAPRIL MALEATE 10 MG TAB PO SCH (08:16)
[2019-10-27] MEDS: ATORVASTATIN 40 MG TAB PO SCH (08:17)
[2019-10-27] MEDS: cefTRIAXone SODIUM 1,000 MG in DEXTROSE 5% 50 ML IV SCH (08:18)
[2019-10-27] MEDS ORDERED: POTASSIUM CHLORIDE 20 MEQ TABCR PO ONE (09:00)
[2019-10-27] MEDS ORDERED: HEPARIN SOD 5,000 UNIT/0.5 ML VIAL SQ SCH (09:00)
[2019-10-27] MEDS: INSULIN ASPART 100 UNITS/ML 3 ML PEN SC SCH ×4 (10:28→21:17)
--- NOTE | 2019-10-27 16:12 | Hospitalist Progress Note ---
Date of Service October 27, 2019 Assessment & Plan (1) Fever: Secondary to vaginal infection, with recent plastic foreign body removed from vagina (probable cap of a medicine or hair spray) and subsequent hemorrhage requiring oversew of vaginal laceration Readmission to hospitalist service with fever. Pelvic exam by ER MD noted purulent drainage PHARMACOVIGILANCE SAFETY EXPERT saw here and deferred pelvic exam as pt already had done in ER-signed off Arianna-rectal stranding seen on CT pelvis but on exam no evidence of proctitis (anterior wall with firmness/?lump but no tenderness or irritation). Vag cx growing pansensitive E. coli -BCxs NGTD, urine culture negative No further fevers since admission, is improving, however with significant delirium as below -No known COVID-19 exposure (no known cases at [place]) but has had 3 hospitalizations in the last week prior to admission. -COVID-19 - discussed with lab today. Confirmed it was sent to [facility] (additional outstanding test from ). Expected to have this back overnight or tomorrow morning. -Continue on IV ceftriaxone 1000 mg IV daily - Plan to continue on IV Abx given improvement and likely poor gut absorption until COVID-19 back and she can be discharged (2) Bacterial vaginitis: as above (3) Metabolic encephalopathy: Suspect back to her baseline as per discussion with her son over the phone today. Suspected AMS on arrival due to underlying infectious process plus recent hemorrhage requiring transfusion, 3 different hospital stays all in the setting of underlying dementia. -Treated with IM Haldol on 2 occasions No longer requiring one-one sitter (4) Vaginal hemorrhage: See HPI for details of her 3 hospital stays (2 here, 1 at [facility]). NO vaginal bleeding since 10/21/2019. Bleeding was 2nd to a vaginal laceration in the setting of a vaginal foreign body. Hemoglobin remained stable at 9 Vaginal biopsy negative for cancer. (5) Hypokalemia: 2nd to HCTZ +/- poor intake upon arrival K 3.3. Additional 40 meq KCl PO given today and yesterday (6) DM w/o complication type II: On metformin TID at [place]. Hold metformin while inpatient. continue novolog sliding scale although has not required any insulin the whole time she has been here and glucose very well controlled BSGs ac/hs. (7) Dementia: mod-severe at baseline per [place] but typically can walk with walker, feed herself, is continent of urine, etc. Now w/ superimposed encephalopathy. -Cont aricept. (8) HTN (hypertension): Blood pressure appears improved today - Continue to hold HCTZ in the setting of poor p.o. intake and hypokalemia - Cont ACEi - IV hydralazine PRN (9) Hyperlipidemia: Continue statin (10) Glaucoma: cont home drops (11) Abnormal CT scan, pelvis: arianna-rectal stranding noted on CT pelvis Admitting hospitalist performed chaperoned ERWIN in ER - no evidence of proctitis, impaction, etc on examination ?anterior wall lump/firmness palpated by admitting physician- uncertain significance of that abnormality - consider GI f/u post-discharge if desired by family (12) Elevated bilirubin: Improved prior total bili levels have been normal. biliary tract and gall bladder were normal on CT. no imaging needed (13) Acute blood loss anemia: Hb 13.5 on 10/15. Had copious vaginal bleeding requiring 2 units PRBCs on 10/20. Hb 8.5 on 10/21 at [facility]. Hb 9.6 on admission, and remained stable-no evidence of ongoing bleeding. Will get iron studies in AM to assess for possible benefit of iron transfusion (14) DVT prophylaxis: Heparin 5000 units SQ BID SCDs. Eventually, plan is back to [facility] memory unit. DNR/DNI Admission and Anticipated Discharge Date Admission Date: October 23, 2019 Continued inpatient stay just awaiting COVID-19 test to come back at this stage. Anticipated date of discharge: 10/28/19 Subjective Patient unable to give any history. She does not remember me from yesterday and unable to tell me any relevant medical history. She has moderate-severe dementia at baseline. Discussed care with her son (David). Apart from the prior agitation she appears to be at her baseline. Suspect lightly off due to hospital environment and also on isolation for COVID-19 test pending. Review of Systems Review of Systems: Unobtainable due to cognitive status Physical Exam Constitutional: WD/WN, vitals as above + altered mental status and + frail appearing ENMT: external ear and nose normal, oropharynx normal Neck: trachea midline, no thyromegaly Respiratory: normal respiratory effort, lungs clear to auscultation Cardiovascular: Rate/Rhythm: regular rate and regular rhythm Heart Sounds: normal S1 and normal S2; no murmur Vessels: no JVD Extremities: normal capillary refill; no edema Chest (Breasts): Chest: normal inspection of chest Gastrointestinal (Abdomen): Inspection/Auscultation: normal bowel sounds Percussion/Palpation: abdomen soft; abdomen nontender, no guarding and abdomen not rigid Musculoskeletal: Extremities: extremities normal to inspection; no cyanosis and no clubbing Skin: no rashes, warm and dry Neurologic: deep tendon reflexes 2+ bilaterally, moves all extremities and awake; no focal motor deficits Speech / Cognition: normal speech Psychiatric: Orientation: alert; + not oriented to person, + not oriented to place and + not oriented to time Eye Contact: + fair eye contact Affect: + anxious affect Mood: + anxious mood Judgement: + severely impaired judgement Results & Data Results & Data ([facility]) Vital Signs (Past 12 Hours) Vital Signs Temp Pulse Resp BP Pulse Ox 10/27/19 08:00 36.4 C L 64 16 124/76 94 PG Care Time/CCT Total # of Minutes Spent Total Time Spent with Patient: Total time spent is greater than 50% in coordination of care (as documented) at patient's floor/unit and/or counseling patient: Coding Level of Care Code 81118 Subseq Hosp Care Lvl 1 Diagnoses Fever R50.9 Fever type: unspecified Bacterial vaginitis N76.0; B96.89 Metabolic encephalopathy G93.41 Vaginal hemorrhage N93.9 Hypokalemia E87.6 DM w/o complication type II E11.9 Dementia F03.90 HTN (hypertension) I10 Hyperlipidemia E78.[address] scan, pelvis R93.5 Elevated bilirubin R17 Acute blood loss anemia D62 DVT prophylaxis Z29.9 (1) Fever Fever type: unspecified Qualified Code(s): R50.9 - Fever, unspecified
[2019-10-27] MEDS: BIMATOPROST 0.01% OP SOLN 2.5 ML BTL OPL SCH (20:20)
[2019-10-27] MEDS: HEPARIN SOD 5,000 UNIT/0.5 ML VIAL SQ SCH (21:17)
[2019-10-28 07:05] LABS: Creatinine Clr Calc Pharmacy 61.9 ml/min; Est GFR (Non-African American) 85.4
[2019-10-28 07:10] LABS: Ferritin 57.4 ng/ml (8-388)
[2019-10-28] MEDS: HEPARIN SOD 5,000 UNIT/0.5 ML VIAL SQ SCH ×2 (08:34→20:08)
[2019-10-28] MEDS: INSULIN ASPART 100 UNITS/ML 3 ML PEN SC SCH ×4 (08:34→20:10)
[2019-10-28] MEDS: cefTRIAXone SODIUM 1,000 MG in DEXTROSE 5% 50 ML IV SCH (08:35)
[2019-10-28] MEDS: LACTOBACILLUS ACIDOPHILUS (FLORANEX) TAB PO SCH ×3 (08:36→16:58)
[2019-10-28] MEDS: FAMOTIDINE 20 MG TAB PO SCH ×2 (08:36→20:09)
[2019-10-28] MEDS: DONEPEZIL HCL 10 MG TAB PO SCH (08:36)
[2019-10-28] MEDS: ATORVASTATIN 40 MG TAB PO SCH (08:36)
[2019-10-28] MEDS: ESCITALOPRAM OXALATE 20 MG TAB PO SCH (08:36)
[2019-10-28] MEDS: ENALAPRIL MALEATE 10 MG TAB PO SCH (08:36)
[2019-10-28] MEDS: TIMOLOL MALEATE 0.25% OP SOLN 5 ML BTL OP SCH ×2 (08:37→20:09)
[2019-10-28] MEDS ORDERED: IRON SUCROSE 200 MG in 0.9 % SODIUM CHLORIDE 100 ML IV ONE (10:00)
[2019-10-28 10:38] LABS: BUN Creatinine Ratio 21.5 (10-20); Calcium 8.3 mg/dl (8.5-10.1); Creatinine Clr Calc Pharmacy 54.8 ml/min; Est GFR (African American) 95.1; Est GFR (Non-African American) 82.1; Potassium 3.6 mmol/L (3.5-5.1)
--- NOTE | 2019-10-28 14:31 | Hospitalist Progress Note ---
Date of Service October 28, 2019 Assessment & Plan (1) Fever: Secondary to vaginal infection, with recent plastic foreign body removed from vagina (probable cap of a medicine or hair spray) and subsequent hemorrhage requiring oversew of vaginal laceration Readmission to hospitalist service with fever. Pelvic exam by ER MD noted purulent drainage CONSULTING SME saw here and deferred pelvic exam as pt already had done in ER-signed off Arianna-rectal stranding seen on CT pelvis but on exam no evidence of proctitis (anterior wall with firmness/?lump but no tenderness or irritation). Vag cx growing pansensitive E. coli -BCxs NGTD, urine culture negative No further fevers since admission, is improving, however with significant delirium as below -Continue on IV ceftriaxone 1000 mg IV daily - Plan to continue on IV Abx given improvement and likely poor gut absorption until COVID-19 back and she can be discharged (2) Suspected COVID-19 virus infection: - No known COVID-19 exposure (no known cases at [place]) but has had 3 hospitalizations in the last week prior to admission. - Confirmed it was sent to [facility] (additional outstanding test from , received at [facility] ). - Infection control nurse following up on [facility]. In house testing declined until reason for [facility] test delay is found. (3) Bacterial vaginitis: as above (4) Metabolic encephalopathy: Suspect back to her baseline as per discussion with her son over the phone today. Suspected AMS on arrival due to underlying infectious process plus recent hemorrhage requiring transfusion, 3 different hospital stays all in the setting of underlying dementia. -Treated with IM Haldol on 2 occasions No longer requiring one-one sitter (5) Vaginal hemorrhage: See HPI for details of her 3 hospital stays (2 here, 1 at [facility]). NO vaginal bleeding since 10/21/2019. Bleeding was 2nd to a vaginal laceration in the setting of a vaginal foreign body. Hemoglobin remained stable at 9 Vaginal biopsy negative for cancer. (6) Hypokalemia: 2nd to HCTZ +/- poor intake upon arrival K 3.6. (7) DM w/o complication type II: On metformin TID at [facility]. Hold metformin while inpatient. continue novolog sliding scale although has not required any insulin the whole time she has been here and glucose very well controlled BSGs ac/hs. (8) Dementia: mod-severe at baseline per [facility] but typically can walk with walker, feed herself, is continent of urine, etc. Now w/ superimposed encephalopathy. -Cont aricept. (9) HTN (hypertension): Blood pressure appears improved today - Continue to hold HCTZ in the setting of poor p.o. intake and hypokalemia - Cont ACEi - IV hydralazine PRN (10) Hyperlipidemia: Continue statin (11) Glaucoma: cont home drops (12) Abnormal CT scan, pelvis: arianna-rectal stranding noted on CT pelvis Admitting hospitalist performed chaperoned ERWIN in ER - no evidence of proctitis, impaction, etc on examination ?anterior wall lump/firmness palpated by admitting physician- uncertain significance of that abnormality - consider GI f/u post-discharge if desired by family (13) Elevated bilirubin: Improved prior total bili levels have been normal. biliary tract and gall bladder were normal on CT. no imaging needed (14) Acute blood loss anemia: Hb 13.5 on 10/15. Had copious vaginal bleeding requiring 2 units PRBCs on 10/20. Hb 8.5 on 10/21 at [facility]. Hb 9.6 on admission, and remained stable-no evidence of ongoing bleeding. Iron sats 7%. Will give Venofer infusion 200 mg. (15) DVT prophylaxis: Heparin 5000 units SQ BID SCDs. She is medically stable for discharge at this time, pending COVID-19 test. DNR/DNI Admission and Anticipated Discharge Date Admission Date: October 23, 2019 Subjective Patient unable to give any history. She does not remember me from yesterday and unable to tell me any relevant medical history. She has moderate-severe dementia at baseline. Review of Systems Review of Systems: Unobtainable due to cognitive status Physical Exam Constitutional: WD/WN, vitals as above + altered mental status and + frail appearing Respiratory: normal respiratory effort; no respiratory distress Cardiovascular: Rate/Rhythm: regular rate and regular rhythm Heart Sounds: no murmur Gastrointestinal (Abdomen): Inspection/Auscultation: normal bowel sounds Percussion/Palpation: abdomen soft; abdomen nontender, no guarding and abdomen not rigid Musculoskeletal: Extremities: extremities normal to inspection; no cyanosis and no clubbing Skin: no rashes, warm and dry Neurologic: moves all extremities and awake; no focal motor deficits Speech / Cognition: normal speech Psychiatric: Orientation: alert; + not oriented to person, + not oriented to place and + not oriented to time Judgement: + severely impaired judgement Results & Data Results & Data ([facility]) Vital Signs (Past 12 Hours) Vital Signs Temp Pulse Resp BP Pulse Ox 10/28/19 08:46 36.6 C 77 16 146/81 H 97 10/28/19 05:04 36.5 C 67 18 160/77 H 98 PG Care Time/CCT Total # of Minutes Spent Total Time Spent with Patient: Total time spent is greater than 50% in coordination of care (as documented) at patient's floor/unit and/or counseling patient: Coding Level of Care Code 32841 Subseq Hosp Care Lvl 2 Diagnoses Fever R50.9 Fever type: unspecified Suspected COVID-19 virus infection Z20.828 Bacterial vaginitis N76.0; B96.89 Metabolic encephalopathy G93.41 Vaginal hemorrhage N93.9 Hypokalemia E87.6 DM w/o complication type II E11.9 Dementia F03.90 HTN (hypertension) I10 Hyperlipidemia E78.[address] scan, pelvis R93.5 Elevated bilirubin R17 Acute blood loss anemia D62 DVT prophylaxis Z29.9 (1) Fever Fever type: unspecified Qualified Code(s): R50.9 - Fever, unspecified
[2019-10-28] MEDS: BIMATOPROST 0.01% OP SOLN 2.5 ML BTL OPL SCH (20:10)
[2019-10-29] MEDS: LACTOBACILLUS ACIDOPHILUS (FLORANEX) TAB PO SCH ×3 (07:48→16:19)
[2019-10-29] MEDS: cefTRIAXone SODIUM 1,000 MG in DEXTROSE 5% 50 ML IV SCH (07:53)
[2019-10-29] MEDS: ENALAPRIL MALEATE 10 MG TAB PO SCH (07:57)
[2019-10-29] MEDS: FAMOTIDINE 20 MG TAB PO SCH (07:57)
[2019-10-29] MEDS: ESCITALOPRAM OXALATE 20 MG TAB PO SCH (07:59)
[2019-10-29] MEDS: ATORVASTATIN 40 MG TAB PO SCH (07:59)
[2019-10-29] MEDS: DONEPEZIL HCL 10 MG TAB PO SCH (07:59)
[2019-10-29] MEDS: HEPARIN SOD 5,000 UNIT/0.5 ML VIAL SQ SCH (07:59)
[2019-10-29] MEDS ORDERED: POTASSIUM CHLORIDE 20 MEQ TABCR PO SCH ×2 (08:00→09:00)
[2019-10-29] MEDS: TIMOLOL MALEATE 0.25% OP SOLN 5 ML BTL OP SCH (08:00)
[2019-10-29] MEDS: INSULIN ASPART 100 UNITS/ML 3 ML PEN SC SCH ×3 (08:08→17:00)
[2019-10-29 15:59] LABS: SARS CoV2 RNA (COVID-19) NOT DETECTED (NOT DETECTED)
--- NOTE | 2019-10-29 17:56 | Discharge Summary ---
Date of Service October 29, 2019 Admission HPI Per Admitting Provider 84yo female with history of HTN, hyperlipidemia, and dementia with 2 recent [facility] admissions for vaginal foreign body and vaginal bleeding. She now presents from [facility] with inability to feed hersel f, difficulty walking, fever of 101.5 degrees at 0400 this am, and altered mental status above & beyond her typical baseline neurocognitive status from the dementia. History dates back to 10/15 when she presented with vaginal bleeding that was 2nd to a foreign body. This was removed under anesthesia in the OR. Bleeding stopped and she had vaginal packing placed. Was d/c back to [facility] on 10/17 after she was observed for recurrent bleeding (had none following the foreign body removal). Unfortunately presented again on 10/19 with vaginal bleeding. On 10/20 she had copious recurrent bleeding requiring urgent PRBC infusion of 2 units, repeat urgent exam under anesthesia, repair of a vaginal laceration, and then ultimately transfer to [facility] on the same date. Records were reviewed from [facility]. She was admitted on 10/20 for observation for any additional vaginal bleeding and had none by way of those records. No documented fever or infectious issues while at [facility]. She was discharged from [facility] on 10/21 back to [place]. Our records show that a vaginal biopsy a few days ago returned negative for vaginal cancer. I personally spoke with the staff at [facility] and they report that when she returned there yesterday (10/21) she was not at baseline. Apparently she typically walks with a walker and could not do so last evening. She usually feeds herself but last evening for dinner she needed staff to assist her. Further, she was quite confused above her normal dementia baseline. She had a "slight" fall last night per the staff but details are not known but no apparent injury was noted. In the middle of the night she had a documented temp of 101.5 degrees. This am for breakfast - although she ate well (75% by report) - she again needed assistance to eat. Her confusion worsened and thus she was brought to the ER by ambulance. Staff at [facility] state she had NO vaginal bleeding overnight or this am. No vomiting, diarrhea, or cough although staff noted she was "mouth breathing" which is unusual for her. No [facility] residents have tested + for COVID-19. Last bowel movement by history was 10/21 at [facility] in the am. During my admission assessment the patient could not provide any meaningful history or answer my questions. Her speech was difficult to understand. She did cough several times during my visit. ER attending performed pelvic exam and this showed a minimal amount of green vaginal discharge but no bleeding. Principal Diagnosis Vaginal infection, E coli Discharge Exam Constitutional WD/WN, vitals as above Eyes PERRL, conjunctivae normal, anicteric sclerae ENMT external ear and nose normal, oropharynx normal Neck trachea midline, no thyromegaly Respiratory normal respiratory effort, lungs clear to auscultation Cardiovascular RRR, no murmur, no edema Gastrointestinal (Abdomen) normal bowel sounds, soft, nontender, no hepatosplenomegaly Musculoskeletal no cyanosis or clubbing, extremities motor strength 5/5 Skin no rashes, warm and dry Neurologic patellar DTR's 2+ bilat, sensation intact and PERRL, EOMI, accommodation nl, no face palsy, no dysarthria Psychiatric Orientation: alert and oriented to person; + not oriented to place and + not oriented to time Lymphatic no cervical or axillary lymphadenopathy Discharge Data Allergies Allergy/AdvReac Type Severity Reaction Status Date / Time No Known Allergies Allergy Verified 10/23/19 10:45 Consultations 10/23/19 13:07 ED Decision to Admit Stat 10/23/19 15:19 Consult Gynecology Routine Ordered Studies 10/23/19 09:54 CT abd pelvis IV con only Stat 10/23/19 09:57 US pelvic complete Stat Hospital Course (1) Fever: Secondary to vaginal infection, with recent plastic foreign body removed from vagina (probable cap of a medicine or hair spray) and subsequent hemorrhage requiring oversew of vaginal laceration Readmission to hospitalist service with fever. Pelvic exam by ER MD noted purulent drainage [employer] saw here and deferred pelvic exam as pt already had done in ER-signed off [place]sol-rectal stranding seen on CT pelvis but on exam no evidence of proctitis (anterior wall with firmness/?lump but no tenderness or irritation). Vag cx growing pansensitive E. coli -BCxs NGTD, urine culture negative No further fevers since admission, is improving, however with significant delirium as below -Completed > 7 days of IV ceftriaxone 1000 mg IV daily, no further antibiotics needed (2) Suspected COVID-19 virus infection: - No known COVID-19 exposure (no known cases at [facility]) but has had 3 hospitalizations in the last week prior to admission. negative test results on day of discharge, 10/29/19 (3) Bacterial vaginitis: as above (4) Metabolic encephalopathy: Suspect back to her baseline as per discussion with her son over the phone Suspected AMS on arrival due to underlying infectious process plus recent hemorrhage requiring transfusion, 3 different hospital stays all in the setting of underlying dementia. -Treated with IM Haldol on 2 occasions No longer requiring one-one sitter, can return to [facility] (5) Vaginal hemorrhage: See HPI for details of her 3 hospital stays (2 here, 1 at [facility]). NO vaginal bleeding since 10/21/2019. Bleeding was 2nd to a vaginal laceration in the setting of a vaginal foreign body. Hemoglobin remained stable at 9 Vaginal biopsy negative for cancer. (6) Hypokalemia: 2nd to HCTZ +/- poor intake upon arrival K 3.6 on last check (7) DM w/o complication type II: On metformin TID at [facility]. Hold metformin while inpatient. continue novolog sliding scale although has not required any insulin the whole time she has been here and glucose very well controlled BSGs ac/hs. (8) Dementia: mod-severe at baseline per [facility] but typically can walk with walker, feed herself, is continent of urine, etc. Now w/ superimposed encephalopathy. -Cont aricept. (9) HTN (hypertension): Blood pressure appears improved today - Cont ACEi - IV hydralazine PRN (10) Hyperlipidemia: Continue statin (11) Glaucoma: cont home drops (12) Abnormal CT scan, pelvis: marysol-rectal stranding noted on CT pelvis Admitting hospitalist performed chaperoned ERWIN in ER - no evidence of proctitis, impaction, etc on examination ?anterior wall lump/firmness palpated by admitting physician- uncertain significance of that abnormality - consider GI f/u post-discharge if desired by family (13) Elevated bilirubin: Improved prior total bili levels have been normal. biliary tract and gall bladder were normal on CT. no imaging needed (14) Acute blood loss anemia: Hb 13.5 on 10/15. Had copious vaginal bleeding requiring 2 units PRBCs on 10/20. Hb 8.5 on 10/21 at [facility]. Hb 9.6 on admission, and remained stable-no evidence of ongoing bleeding. Iron sats 7%. Will give Venofer infusion 200 mg. (15) DVT prophylaxis: Heparin 5000 units SQ BID SCDs. She is medically stable for discharge at this time, pending COVID-19 test. DNR/DNI Total Time Total Time Spent Total Time Spent (In Minutes): 25 minutes Total Time Includes: Examination of the Patient, Discharge Planning and Medication Reconciliation Discharge Plan Discharge Items Patient Disposition: Personal Fdc Reason For Visit: FALL,AMS,FEVER/SIRS,RECENT VAG BLEEDING Discharge Diagnosis: Vaginal infection, E coli, due to recent foreign body Recent vaginal bleeding, resolved Dementia Condition on Discharge: Good Goals: improve nutrition and hydration improve mobility and strength Activity: Resume your previous activity Non-emergency contact: Primary Care Provider Call non-emergency contact if: you have any medication questions, your symptoms worsen and you have a fever Follow-up/Referrals: [facility] [Primary Care Provider] - Diet: Carb Consistent or DM2 and Heart Healthy Addtl Attending Provider Instructions: Medications: please not that HCTZ was stopped, BP stable off of it no other changes made Fever, vaginal infection with E coli, related to recent vaginal hemorrhage due to foreign body vaginal culture grew E coli that was sensitive to cephalosporins, she received over 7 days of Ceftriaxone, no further treatment planned her COVID 19 test was negative, no concerns for COVID 19 infection, safe to return to [facility] recommend follow up with provider at [facility] next week Pending Studies at Discharge: No Stand-Alone Forms: Armor5, Smoking Cessation Skilled Items Patient informed of condition?: Yes DNR: Yes Discharge Level of Care: Other Communicable Disease: No Discharge Prognosis: Stable Lines: None Urinary Catheter: No Medications and DC Order Prescriptions: Continued escitalopram oxalate [Lexapro] 20 mg Tablet 20 mg PO QAM RF: 0 aspirin 81 mg Tablet,Delayed Release (Dr/Ec) 81 mg PO DAILY RF: 0 Betimol 0.25 % Drops 1 drp OPHTHALMIC (EYE) BID RF: 0 benazepril 40 mg Tablet 40 mg PO QAM RF: 0 metformin [Glucophage XR] 500 mg Tablet Extended Release 24 Hr 500 mg PO TID RF: 0 magnesium gluconate 27 mg magnesium (500 mg) Tablet 250 mg PO BID RF: 0 calcium carbonate-vitamin D3 [Calcium 600 + D(3)] 600 mg(1,500mg) -400 unit Tablet 1 tab PO TID RF: 0 Lumigan 0.01 % Drops 1 drp OPL PM RF: 0 atorvastatin 40 mg Tablet 40 mg PO QAM RF: 0 acetaminophen 325 mg Tablet 650 mg PO Q4H MDD 3 GMS APAP/24 HOURS PRN (Reason: Fever Or Pain) RF: 0 donepezil 10 mg Tablet 10 mg PO QAM RF: 0 potassium chloride 10 mEq Tablet Extended Release 10 meq PO DAILY RF: 0 famotidine 20 mg Tablet 20 mg PO BID RF: 0 Discontinued hydrochlorothiazide 25 mg Tablet 25 mg PO QAM RF: 0 Discharge Orders: Discharge Order (Routine); Ordered 10/29/19 Ordered By: William Adorno Admission Data Admit Date/Time: 10/23/19 14:31 Attending Provider: William Adorno Admit Provider: Omar Matos Primary Care Provider: [facility]il[facility] kyleBeatrice Other Providers: Marcin Ricci Samuel Other Interventions: Discharge Summary Assessment (RN) Last Done: 10/29/19 15:04 DC Date/Time DO NOT enter until pt leaves facility: 10/29/19 18:16 Coding Level of Care Code D/C Day Management <30 mins Diagnoses Fever R50.9 Fever type: unspecified Suspected COVID-19 virus infection Z20.828 Bacterial vaginitis N76.0; B96.89 Metabolic encephalopathy G93.41 Vaginal hemorrhage N93.9 Hypokalemia E87.6 DM w/o complication type II E11.9 Dementia F03.90 HTN (hypertension) I10 Hyperlipidemia E78.[address] scan, pelvis R93.5 Elevated bilirubin R17 Acute blood loss anemia D62 DVT prophylaxis Z29.9
== END 2019-10-29 18:16 | disposition home or self-care (01) | DRG 746 ==
LOC: ED 09:44 → 2S 14:31 → SUATTDRO 14:31 → 2S 15:22 → 2W 10-26 18:51